=== PATIENT | male | born 1940 | race Caucasian/White ===

== ENCOUNTER → 2016-11-24 | Outpatient (CLI) | payer MEDICARE ==
--- NOTE | 2016-11-24 08:33 | US ---
EXAMINATION TYPE: US duplex aorta DATE OF EXAM: 11/24/2016 7:56 AM COMPARISON: NONE CLINICAL HISTORY: 76-year-old male AAA TECHNIQUE: Multiple sonographic images of the abdominal aorta are obtained. FINDINGS: TECHNOLOGIST NOTES: Technical limitations due to large amount of overlying bowel. Abdominal Aorta: Proximal: 2.9 x 3.2cm Mid: 2.2 x 2.7cm Distal: 3.2 x 3.1cm Right common iliac: 1.4 x 1.4cm Left common iliac: 1.4 x 1.3cm (Previous measurements: Prox: 2.5 x 2.4 x 2.5 cm. Mid: 2.3 x 2.4 x 2.5 cm. Distal: 3.2 x 3.1 x 3.1 cm. Common iliacs: 1.6 and 1.7 cm, right and left, respectively. ) IMPRESSION: 1. 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 The mid abdominal aorta is also measured ectatic at 2.7 cm. 2. The previous ectasia of the common iliac arteries is not appreciated on the current exam. Normal Values: 2.5cm upper limits of normal at upper portion 1.5cm upper limits of normal at iliac More than 2.5cm is ectatic and 3.0cm+ is aneurysmal. Abdominal Aortic Aneurysms: 3.0-3.9cm diameter: annual US surveillance recommended 4.0-4.9cm diameter: 6 month US surveillance recommended 5.0 +cm: recommendation for elective aneurysm repair in appropriate surgical candidate
== END | disposition home or self-care (01) ==
LOC: RADUSWWP 07:27
PROVIDERS: ATTEND Family Medicine
DX: I71.4 Abdominal aortic aneurysm, without rupture (principal)
CPT/HCPCS: 93979

== ENCOUNTER 2016-12-16 11:16 | Emergency (ER) | payer MEDICARE ==
[2016-12-16 11:44] LABS: Glucose,Whole Blood 97 mg/dL (75-99)
[2016-12-16] MEDS ORDERED: SODIUM CHLORIDE 0.9% 1,000 ML IV STA (11:47)
--- NOTE | 2016-12-16 11:48 | ED ---
General Adult HPI - General Chief complaint: Dizziness Stated complaint: VERTIGO POSS MINI STROKE Time Seen by Provider: 12/16/16 11:29 Source: patient, RN notes reviewed, old records reviewed Mode of arrival: wheelchair Limitations: no limitations - History of Present Illness Initial comments: This is a 76-year-old male ER with multiple nonspecific complaints. Patient doesn't from prior history of TIA with a few other comorbid conditions, patient states he does live alone and does feel anxious at times. He states he woke up this morning and an episode of blurry vision. Patient states he did eat and cataract for a while and had another episode of blurry vision, just for things were Floating in His Vision past. No Headache Chest Pain Stress of Breath or Abdominal Pain, Patient Is Not Taking Any Medications, He Has a V. fib in His Upper Neck for Which He Has Been Taking. Otherwise Patient Has No Focal Neurological Deficit No Weakness Normal Strength or Sensation Issues - Related Data Home Medications Medication Instructions Recorded Confirmed Atorvastatin [Lipitor] 40 mg PO DAILY 04/16/14 12/16/16 Dabigatran [Pradaxa] 150 mg PO BID 04/16/14 12/16/16 Levothyroxine Sodium [Synthroid] 50 mcg PO DAILY 04/16/14 12/16/16 Propafenone [Rythmol] 150 mg PO TID 04/16/14 12/16/16 busPIRone HCL [Buspar] 15 mg PO BID 04/16/14 12/16/16 buPROPion HCL [Wellbutrin SR] 100 mg PO BID 12/09/15 12/16/16 Fish Oil/Dha/Epa [Fish Oil 1,200 700 mg PO BID 12/16/16 12/16/16 mg Fish Oil] Allergies Allergy/AdvReac Type Severity Reaction Status Date / Time peanut Allergy Anaphylaxis Verified 12/16/16 11:26 Review of Systems ROS Statement: Those systems with pertinent positive or pertinent negative responses have been documented in the HPI. ROS Other: All systems not noted in ROS Statement are negative. Past Medical History Past Medical History: Atrial Fibrillation, CVA/TIA, Hyperlipidemia, Sleep Apnea/ CPAP/BIPAP, Thyroid Disorder Additional Past Medical History / Comment(s): 12-09-15 ADMITTED WITH C/O CHEST PAIN, CLINICAL IMPRESSION WAS UNSTABLE ANGINA. OTHE PAST HX INCLUDES: sleep apnea, PAST AFIB/FLUTTER HAD CARDIAC ABLATION FOR THIS. ALSO FOUND TO HAVE SICK SINUS SYNDROME,SYMPTOMATIC SINUS BRADYCARDIA AND HAD DUAL CHAMBERED PAEMEKER PLACED 2014, OSTEOPOROSIS.PER PAST MED RECORD MVP. History of Any Multi-Drug Resistant Organisms: None Reported Past Surgical History: Adenoidectomy, Heart Catheterization, Pacemaker, Tonsillectomy Additional Past Surgical History / Comment(s): left eye, EP STUDY cardiac ablation, PACEMAKER, HEART CATHS X3, HEMORROIDECTOMY, SX FOR SLEEP APNEA, MOLE REMOVED LT LEG(BENIGN) Past Anesthesia/Blood Transfusion Reactions: No Reported Reaction Type of Cardiac Device: Permanent Pacemaker Device Placement Date:: 2013 Past Psychological History: Anxiety, Depression Smoking Status: Former smoker Past Alcohol Use History: Rare Additional Past Alcohol Use History / Comment(s): SMOKED X7 YEARS 2-3 PPD QUIT 1968 Past Drug Use History: None Reported - Past Family History Sister(s) Family Medical History: Cancer Additional Family Medical History / Comment(s): BREAST CANCER Father Additional Family Medical History / Comment(s): stomach aneurysm General Exam - General Exam Comments Initial Comments: NIH of 0 Limitations: no limitations General appearance: alert, in no apparent distress Head exam: Present: atraumatic, normocephalic, normal inspection Eye exam: Present: normal appearance, PERRL, EOMI. Absent: scleral icterus, conjunctival injection, periorbital swelling ENT exam: Present: normal exam, mucous membranes moist Neck exam: Present: normal inspection. Absent: tenderness, meningismus, lymphadenopathy Respiratory exam: Present: normal lung sounds bilaterally. Absent: respiratory distress, wheezes, rales, rhonchi, stridor Cardiovascular Exam: Present: regular rate, normal rhythm, normal heart sounds. Absent: systolic murmur, diastolic murmur, rubs, gallop, clicks GI/Abdominal exam: Present: soft, normal bowel sounds. Absent: distended, tenderness, guarding, rebound, rigid Extremities exam: Present: normal inspection, full ROM, normal capillary refill. Absent: tenderness, pedal edema, joint swelling, calf tenderness Back exam: Present: normal inspection Neurological exam: Present: alert, oriented X3, CN II-XII intact Psychiatric exam: Present: normal affect, normal mood Skin exam: Present: warm, dry, intact, normal color. Absent: rash Course Vital Signs 12/16/16 11:20 Temperature 98.3 F Pulse Rate 64 Respiratory 16 Rate Blood Pressure 130/67 O2 Sat by Pulse 98 Oximetry - Reevaluation(s) Reevaluation #1: 12/16/16 12:41 Patient is without neurological findings complaint, no blurry vision EKG Findings - EKG Comments: EKG Findings:: EKG shows normal sinus rhythm rate of 60, ND 136, QRS 94, QTc 456 Medical Decision Making - Medical Decision Making 76 male ER for evaluation. Patient here for evaluation of blurry vision, patient episode of blurry vision after waking up this morning, does admit to increased anxiety, patient does suffer from anxiety and depression. At this point patient has no neurological complaints no neurological focal findings, patient can be discharged home - Lab Data Result diagrams: 12/16/16 12:05 Lab Results 12/16/16 12/16/16 Range/Units 11:42 12:05 WBC 5.6 (3.8-10.6) k/uL RBC 4.61 (4.30-5.90) m/uL Hgb 14.6 (13.0-17.5) gm/dL Hct 44.4 (39.0-53.0) % MCV 96.3 (80.0-100.0) fL MCH 31.7 (25.0-35.0) pg MCHC 32.9 (31.0-37.0) g/dL RDW 12.2 (11.5-15.5) % Plt Count 255 (150-450) k/uL Neutrophils % 57 % Lymphocytes % 27 % Monocytes % 9 % Eosinophils % 2 % Basophils % 1 % Neutrophils # 3.2 (1.3-7.7) k/uL Lymphocytes # 1.5 (1.0-4.8) k/uL Monocytes # 0.5 (0-1.0) k/uL Eosinophils # 0.1 (0-0.7) k/uL Basophils # 0.0 (0-0.2) k/uL POC Glucose (mg/dL) 97 (75-99) mg/dL POC Glu Standards Analyst ID Gm [email or web address] - Radiology Data Radiology results: report reviewed (CT brain negative for acute disease), image reviewed Disposition Clinical Impression: Dehydration, Anxiety, Obesity, TIA (transient ischemic attack) Disposition: HOME SELF-CARE Condition: Good Referrals: Marita Rick MD [Primary Care Provider] - 1-2 days
[2016-12-16 12:24] LABS: Basophils % (A) 1 %; CH 32.4; CHCM 33.8; Eosinophils # (A) 0.1 k/uL (0-0.7); Eosinophils % (A) 2 %; HCT 44.4 % (39.0-53.0); HDW 2.31; HGB 14.6 gm/dL (13.0-17.5); Luc # (Auto) 0.25; Luc % (Auto) 4; Lymphocytes # (A) 1.5 k/uL (1.0-4.8); Lymphocytes % (A) 27 %; MCH 31.7 pg (25.0-35.0); MCHC 32.9 g/dL (31.0-37.0); MCV 96.3 fL (80.0-100.0); Mean Platelet Volume 7.6; Monocytes # (A) 0.5 k/uL (0-1.0); Monocytes % (A) 9 %; Neutrophils # (A) 3.2 k/uL (1.3-7.7); Neutrophils % (A) 57 %; RBC 4.61 m/uL (4.30-5.90); RDW 12.2 % (11.5-15.5); WBC 5.6 k/uL (3.8-10.6); WBC (Perox) 5.71
[2016-12-16 12:33] LABS: ALT 32 U/L (21-72); AST 31 U/L (17-59); Alkaline Phosphatase 106 U/L (38-126); Anion Gap 13 mmol/L; Blood Urea Nitrogen 18 mg/dL (9-20); Calcium 8.8 mg/dL (8.4-10.2); Carbon Dioxide 22 mmol/L (22-30); Chloride 110 mmol/L (98-107); Glucose 101 mg/dL (74-99); Magnesium 2.1 mg/dL (1.6-2.3); Non-African American GFR(MDRD) >60 (>60 ml/min/1.73 sqM); Phosphorous 3.1 mg/dL (2.5-4.5); Potassium 4.3 mmol/L (3.5-5.1); Sodium 145 mmol/L (137-145); Total Bilirubin 1.2 mg/dL (0.2-1.3); Total Protein 6.6 g/dL (6.3-8.2)
[2016-12-16] MEDS ORDERED: LORazepam 2 MG/ML SYRINGE IV STA (12:36)
--- NOTE | 2016-12-16 12:45 | CT ---
EXAMINATION TYPE: CT brain wo con DATE OF EXAM: 12/16/2016 12:36 PM COMPARISON: 01/01/2016 HISTORY: Patient complains of multiple visual disturbances. CT DLP: 815.[address] of the brain was performed. The ventricles, basal cisterns and sulci overlying the cerebral convexities demonstrate mild enlargem ent. Bifrontal atrophy again noted. There is no evidence for intracranial hemorrhage or sulcal effacement. There is decreased attenuation about the periventricular white matter and deep white matter of both c erebral hemispheres, compatible with chronic small vessel ischemia. Differential diagnosis does inclu de demyelination. No mass effects are seen.No midline shift. Osseous calvarium is intact. If symptoms persist consider MRI. IMPRESSION: 1. Age related atrophic and chronic small vessel ischemic change without acute intracranial process s een at this time.
[2016-12-16 12:55] LABS: Creatine Kinase 96 U/L (55-170)
[2016-12-16 13:09] LABS: Troponin I <0.012 ng/mL (0.000-0.034)
[2016-12-16 13:47] VITALS: BP 155/72; PULSE 54; RESP 18; TEMP 97.8
== END 2016-12-16 13:51 | disposition home or self-care (01) ==
LOC: EC 11:16
DX: G45.9 Transient cerebral ischemic attack, unspecified (principal); E86.0 Dehydration; E66.9 Obesity, unspecified; F41.9 Anxiety disorder, unspecified; H53.8 Other visual disturbances; I48.91 Unspecified atrial fibrillation; E78.5 Hyperlipidemia, unspecified; E07.9 Disorder of thyroid, unspecified; F32.9 Major depressive disorder, single episode, unspecified; G47.30 Sleep apnea, unspecified; Z86.73 Personal history of transient ischemic attack (TIA), and cerebral infarction without residual deficits; Z87.891 Personal history of nicotine dependence; Z79.899 Other long term (current) drug therapy; Z91.010 Allergy to peanuts
CPT/HCPCS: 36415; 93005; 80053; 82550; 82553; 83735; 84100; 84484; 85025; 70450; 99284; 96374; 96361; J2060

== ENCOUNTER 2017-01-20 16:47 | Inpatient (IN) | payer MEDICARE ==
[2017-01-20] MEDS ORDERED: SODIUM CHLORIDE 0.9% 1,000 ML IV STA (16:58)
[2017-01-20 17:23] LABS: Basophils % (A) 1 %; CH 32.5; Eosinophils % (A) 1 %; HCT 47.3 % (39.0-53.0); HDW 2.23; HGB 15.5 gm/dL (13.0-17.5); Luc # (Auto) 0.23; Luc % (Auto) 4; Lymphocytes # (A) 0.7 k/uL (1.0-4.8); Lymphocytes % (A) 13 %; MCH 31.4 pg (25.0-35.0); MCHC 32.7 g/dL (31.0-37.0); MCV 96.1 fL (80.0-100.0); Mean Platelet Volume 7.9; Monocytes # (A) 0.9 k/uL (0-1.0); Monocytes % (A) 17 %; Neutrophils # (A) 3.3 k/uL (1.3-7.7); Neutrophils % (A) 64 %; RBC 4.92 m/uL (4.30-5.90); WBC 5.1 k/uL (3.8-10.6); WBC (Perox) 4.79
[2017-01-20 17:26] LABS: ALT 32 U/L (21-72); AST 41 U/L (17-59); Alkaline Phosphatase 107 U/L (38-126); Anion Gap 12 mmol/L; Blood Urea Nitrogen 15 mg/dL (9-20); Calcium 8.8 mg/dL (8.4-10.2); Carbon Dioxide 22 mmol/L (22-30); Chloride 106 mmol/L (98-107); Glucose 115 mg/dL (74-99); Magnesium 1.9 mg/dL (1.6-2.3); Non-African American GFR(MDRD) 54 (>60 ml/min/1.73 sqM); Potassium 4.3 mmol/L (3.5-5.1); Sodium 140 mmol/L (137-145); Total Bilirubin 1.4 mg/dL (0.2-1.3); Total Protein 6.8 g/dL (6.3-8.2)
[2017-01-20 17:28] LABS: INR 1.2 (<1.1); Partial Thromboplastin Time 33.9 sec (22.0-30.0); Prothrombin Time 11.9 sec (9.0-12.0)
--- NOTE | 2017-01-20 17:34 | CT ---
EXAMINATION TYPE: CT brain wo con DATE OF EXAM: 01/20/2017 5:28 PM COMPARISON: 12/16/2016 HISTORY: PT STATES OF FALL TODAY AND SLURRED SPEECH. CT DLP: 1174 mGycm Automated exposure control for dose reduction was used. FINDINGS: There is cerebral cortical atrophy. There is no mass effect nor midline shift. There is no sign of in tracranial hemorrhage. There is minimal mucosal thickening in the left maxillary sinus. Calvarium is intact. IMPRESSION: Cerebral atrophy. Small mucus retention cyst left maxillary sinus. No adverse change compared to old exam.
--- NOTE | 2017-01-20 17:35 | ED ---
Neuro HPI - General Chief Complaint: Neuro Symptoms/Deficit Stated Complaint: TIA symptoms Time Seen by Provider: 01/20/17 16:47 Source: patient, EMS, RN notes reviewed Mode of arrival: EMS Limitations: no limitations - History of Present Illness Is the patient presenting with stroke symptoms?: Yes Initial Comments: This is a 76-year-old male history of TIAs who states he had the onset at 9:00 is when of some slurred speech and generalized weakness. He states that later on they could not even walk across the floor to get the phone. He denies any focal weakness however. Denies any headache blurry vision numbness or tingling. He denies any fevers chills sweats. Denies any overt pain at this time. - Related Data Home Medications: Home Medications Medication Instructions Recorded Confirmed Atorvastatin [Lipitor] 40 mg PO HS 04/16/14 01/20/17 Dabigatran [Pradaxa] 150 mg PO BID 04/16/14 01/20/17 Levothyroxine Sodium [Synthroid] 50 mcg PO DAILY 04/16/14 01/20/17 Propafenone [Rythmol] 150 mg PO TID 04/16/14 01/20/17 busPIRone HCL [Buspar] 15 mg PO BID 04/16/14 01/20/17 Albuterol Inhaler [Ventolin Hfa 1 - 2 puff INHALATION RT-Q6H PRN 12/16/16 Inhaler] Fish Oil/Dha/Epa [Fish Oil 1,200 1 cap PO BID 12/16/16 01/20/17 mg Fish Oil] Diltiazem Cd [Cardizem Cd] 180 mg PO DAILY 01/20/17 01/20/17 buPROPion [Wellbutrin] 100 mg PO BID 01/20/17 01/20/17 Allergies/Adverse Reactions: Allergies Allergy/AdvReac Type Severity Reaction Status Date / Time peanut Allergy Anaphylaxis Verified 01/20/17 17:57 Review of Systems ROS Statement: Those systems with pertinent positive or pertinent negative responses have been documented in the HPI. ROS Other: All systems not noted in ROS Statement are negative. General Exam - General Exam Comments Initial Comments: Is a well-developed well-nourished awake alert oriented 3 male Limitations: no limitations General appearance: alert, in no apparent distress Head exam: Present: atraumatic, normocephalic, normal inspection Eye exam: Present: normal appearance, PERRL, EOMI. Absent: scleral icterus, conjunctival injection, periorbital swelling ENT exam: Present: normal exam, mucous membranes moist Neck exam: Present: normal inspection. Absent: tenderness, meningismus, lymphadenopathy Respiratory exam: Present: normal lung sounds bilaterally. Absent: respiratory distress, wheezes, rales, rhonchi, stridor Cardiovascular Exam: Present: regular rate, normal rhythm, normal heart sounds. Absent: systolic murmur, diastolic murmur, rubs, gallop, clicks GI/Abdominal exam: Present: soft, normal bowel sounds. Absent: distended, tenderness, guarding, rebound, rigid Extremities exam: Present: normal inspection, full ROM, normal capillary refill. Absent: tenderness, pedal edema, joint swelling, calf tenderness Back exam: Present: normal inspection Neurological exam: Present: alert, oriented X3, CN II-XII intact Psychiatric exam: Present: normal affect, normal mood Skin exam: Present: warm, dry, intact, normal color. Absent: rash Stroke MDM - Lab Data Result diagrams: 01/20/17 16:50 01/20/17 16:50 Lab Results 01/20/17 01/20/17 01/20/17 Range/Units 16:50 16:50 16:50 WBC 5.1 (3.8-10.6) k/uL RBC 4.92 (4.30-5.90) m/uL Hgb 15.5 (13.0-17.5) gm/dL Hct 47.3 (39.0-53.0) % MCV 96.1 (80.0-100.0) fL MCH 31.4 (25.0-35.0) pg MCHC 32.7 (31.0-37.0) g/dL RDW 12.0 (11.5-15.5) % Plt Count 190 (150-450) k/uL Neutrophils % 64 % Lymphocytes % 13 % Monocytes % 17 % Eosinophils % 1 % Basophils % 1 % Neutrophils # 3.3 (1.3-7.7) k/uL Lymphocytes # 0.7 L (1.0-4.8) k/uL Monocytes # 0.9 (0-1.0) k/uL Eosinophils # 0.0 (0-0.7) k/uL Basophils # 0.0 (0-0.2) k/uL Manual Slide Review Performed RBC Morphology Normal PT (9.0-12.0) sec INR (<1.1) APTT (22.0-30.0) sec Sodium 140 (137-145) mmol/L Potassium 4.3 (3.5-5.1) mmol/L Chloride 106 (98-107) mmol/L Carbon Dioxide 22 (22-30) mmol/L Anion Gap 12 mmol/L BUN 15 (9-20) mg/dL Creatinine 1.30 H (0.66-1.25) mg/dL Est GFR (MDRD) Af Amer >60 (>60 ml/min/1.73 sqM) Est GFR (MDRD) Non-Af 54 (>60 ml/min/1.73 sqM) Glucose 115 H (74-99) mg/dL Calcium 8.8 (8.4-10.2) mg/dL Magnesium 1.9 (1.6-2.3) mg/dL Total Bilirubin 1.4 H (0.2-1.3) mg/dL AST 41 (17-59) U/L ALT 32 (21-72) U/L Alkaline Phosphatase 107 (38-126) U/L Total Creatine Kinase 259 H (55-170) U/L CK-MB (CK-2) 0.7 (0.0-2.4) ng/mL CK-MB (CK-2) Rel Index 0.3 Troponin I <0.012 (0.000-0.034) ng/mL NT-Pro-B Natriuret Pep pg/mL Total Protein 6.8 (6.3-8.2) g/dL Albumin 3.8 (3.5-5.0) g/dL TSH 0.662 (0.465-4.680) mIU/L Urine Color Urine Appearance (Clear) Urine pH (5.0-8.0) Ur Specific [place] (1.001-1.035) Urine Protein (Negative) Urine Glucose (UA) (Negative) Urine Ketones (Negative) Urine Blood (Negative) Urine Nitrate (Negative) Urine Bilirubin (Negative) Urine Urobilinogen (<2.0) mg/dL Ur Leukocyte Esterase (Negative) Urine RBC (0-5) /hpf Urine WBC (0-5) /hpf Ur Squamous Epith Cells (0-4) /hpf Urine Mucus (None) /hpf 01/20/17 01/20/17 01/20/17 Range/Units 16:50 16:50 18:21 WBC (3.8-10.6) k/uL RBC (4.30-5.90) m/uL Hgb (13.0-17.5) gm/dL Hct (39.0-53.0) % MCV (80.0-100.0) fL MCH (25.0-35.0) pg MCHC (31.0-37.0) g/dL RDW (11.5-15.5) % Plt Count (150-450) k/uL Neutrophils % % Lymphocytes % % Monocytes % % Eosinophils % % Basophils % % Neutrophils # (1.3-7.7) k/uL Lymphocytes # (1.0-4.8) k/uL Monocytes # (0-1.0) k/uL Eosinophils # (0-0.7) k/uL Basophils # (0-0.2) k/uL Manual Slide Review RBC Morphology PT 11.9 (9.0-12.0) sec INR 1.2 (<1.1) APTT 33.9 H (22.0-30.0) sec Sodium (137-145) mmol/L Potassium (3.5-5.1) mmol/L Chloride (98-107) mmol/L Carbon Dioxide (22-30) mmol/L Anion Gap mmol/L BUN (9-20) mg/dL Creatinine (0.66-1.25) mg/dL Est GFR (MDRD) Af Amer (>60 ml/min/1.73 sqM) Est GFR (MDRD) Non-Af (>60 ml/min/1.73 sqM) Glucose (74-99) mg/dL Calcium (8.4-10.2) mg/dL Magnesium (1.6-2.3) mg/dL Total Bilirubin (0.2-1.3) mg/dL AST (17-59) U/L ALT (21-72) U/L Alkaline Phosphatase (38-126) U/L Total Creatine Kinase (55-170) U/L CK-MB (CK-2) (0.0-2.4) ng/mL CK-MB (CK-2) Rel Index Troponin I (0.000-0.034) ng/mL NT-Pro-B Natriuret Pep 412 pg/mL Total Protein (6.3-8.2) g/dL Albumin (3.5-5.0) g/dL TSH (0.465-4.680) mIU/L Urine Color Yellow Urine Appearance Clear (Clear) Urine pH 5.5 (5.0-8.0) Ur Specific [place] 1.009 (1.001-1.035) Urine Protein Negative (Negative) Urine Glucose (UA) Negative (Negative) Urine Ketones Negative (Negative) Urine Blood Small H (Negative) Urine Nitrate Negative (Negative) Urine Bilirubin Negative (Negative) Urine Urobilinogen <2.0 (<2.0) mg/dL Ur Leukocyte Esterase Negative (Negative) Urine RBC 5 (0-5) /hpf Urine WBC 1 (0-5) /hpf Ur Squamous Epith Cells <1 (0-4) /hpf Urine Mucus Rare H (None) /hpf - NIH Stroke Scale 1a. Level of Consciousness: (0) alert 1b. LOC Questions: (0) answers correctly 1c. LOC Commands: (0) performs tasks correctly 2. Best Gaze: (0) normal 3. Visual: (0) no visual loss 4. Facial Palsy: (0) normal symmetrical movement 5a. Motor Arm Left: (0) no drift 5b. Motor Arm Right: (0) no drift 6a. Motor Leg Left: (0) no drift 6b. Motor Leg Right: (0) no drift 7. Limb Ataxia: (0) absent 8. Sensory: (0) normal 9. Best Language: (0) no aphasia 10. Dysarthria: (1) mild/moderate dysarthria 11. Extinction/Inattention: (0) no abnormality - Thrombolytic Inclusion/Exclusion Thrombolytic Exclusion Criteria: Symptom Onset > 3 Hours - Medical Decision Making The patient did have noted improvement with no more slurred speech. I did discuss the case with Dr Kraus. the patient will be admitted with evaluation by neurology. I - EKG Data -: EKG Interpreted by Me EKG shows normal: sinus rhythm (Sinus rhythm rate 65. Interval 156 QRS duration 92 QT/QTC of 440/[address] configuration artifact is present.) Past Medical History Past Medical History: Atrial Fibrillation, CVA/TIA, Hyperlipidemia, Sleep Apnea/ CPAP/BIPAP, Thyroid Disorder Additional Past Medical History / Comment(s): 12-09-15 ADMITTED WITH C/O CHEST PAIN, CLINICAL IMPRESSION WAS UNSTABLE ANGINA. OTHE PAST HX INCLUDES: sleep apnea, PAST AFIB/FLUTTER HAD CARDIAC ABLATION FOR THIS. ALSO FOUND TO HAVE SICK SINUS SYNDROME,SYMPTOMATIC SINUS BRADYCARDIA AND HAD DUAL CHAMBERED PAEMEKER PLACED 2013, OSTEOPOROSIS.PER PAST MED RECORD MVP. History of Any Multi-Drug Resistant Organisms: None Reported Past Surgical History: Adenoidectomy, Heart Catheterization, Pacemaker, Tonsillectomy Additional Past Surgical History / Comment(s): left eye, EP STUDY cardiac ablation, PACEMAKER, HEART CATHS X3, HEMORROIDECTOMY, SX FOR SLEEP APNEA, MOLE REMOVED LT LEG(BENIGN) Past Anesthesia/Blood Transfusion Reactions: No Reported Reaction Type of Cardiac Device: Permanent Pacemaker Device Placement Date:: 2013 Past Psychological History: Anxiety, Depression Smoking Status: Former smoker Past Alcohol Use History: Rare Additional Past Alcohol Use History / Comment(s): SMOKED X7 YEARS 2-3 PPD QUIT 1967 Past Drug Use History: None Reported - Past Family History Sister(s) Family Medical History: Cancer Additional Family Medical History / Comment(s): BREAST CANCER Father Additional Family Medical History / Comment(s): stomach aneurysm Course Vital Signs 01/20/17 01/20/17 16:48 18:18 Temperature 98.8 F 99.1 F Pulse Rate 71 65 Respiratory 16 16 Rate Blood Pressure 124/70 152/70 O2 Sat by Pulse 97 95 Oximetry - Reevaluation(s) Reevaluation #1: 01/20/17 19:11 After return from CAT scan patient devastated no overt change she still has some slight slurring of his speech there was a question whether he had some flattening of the right nasolabial fold Critical Care Time Critical Care Time: Yes Critical Care Time: The patient was reevaluated several occasions of critical care time 33 minutes. This includes initial monitoring of the EMS call discussed with paramedics history physical lab and x-rays of the patient evaluation of the same. Reevaluation patient several occasions. Documentation discussed with the admitting physician and orders. Disposition Clinical Impression: Transient cerebral ischemia Disposition: ADMITTED IP TO THIS HOSP Condition: Stable
[2017-01-20 17:37] LABS: Creatine Kinase 259 U/L (55-170)
[2017-01-20 17:38] LABS: Manual Review Performed; RBC Morphology Normal
[2017-01-20 17:50] LABS: Creatine Kinase MB 0.7 ng/mL (0.0-2.4); Troponin I <0.012 ng/mL (0.000-0.034)
--- NOTE | 2017-01-20 18:22 | XR ---
EXAMINATION TYPE: XR chest 2V DATE OF EXAM: 01/20/2017 6:09 PM COMPARISON: 05/15/2016 HISTORY: Weakness TECHNIQUE: Frontal and lateral views of the chest are obtained. FINDINGS: There is no heart failure nor confluent pneumonic infiltrate. There are no hilar masses. T here is a left axillary pacemaker with the lead tips in the right ventricle. There are chest leads. T here is no definite pleural effusion. IMPRESSION: No active cardiopulmonary disease. No change compared to old exam.
[2017-01-20 18:32] LABS: Appearance,Urine Clear (Clear); Bilirubin,Urine Negative (Negative); Glucose,Urine (UA) Negative (Negative); Ketones,Urine Negative (Negative); Leukocyte Esterase,Urine Negative (Negative); Mucus,Urine Rare /hpf; Nitrite,Urine Negative (Negative); PH, Urine 5.5 (5.0-8.0); Particle Count 3772; Protein,Urine Negative (Negative); RBC,Urine 5 /hpf (0-5); Specific Gravity,Urine 1.009 (1.001-1.035); Squamous Epithelial Cell,Urine <1 /hpf (0-4); UA Billing (MACRO vs. MICRO) MICRO; Urobilinogen,Urine <2.0 mg/dL (<2.0); WBC,Urine 1 /hpf (0-5)
[2017-01-20] MEDS ORDERED: ALBUTEROL NEBULIZED 2.5 MG/3 ML INHALATION PRN (19:20)
[2017-01-20] MEDS ORDERED: NON-FORMULARY DRUG (Fish Oil/Dha/Epa [Fish Oil 1,200 Mg Fish Oil] 1 CAP) PO SCH (21:00)
[2017-01-20 21:06] VITALS: BMI 38.0
[2017-01-20] MEDS: ATORVASTATIN 40 MG TAB PO SCH (21:50)
[2017-01-20] MEDS: buPROPion 100 MG TAB PO SCH (21:50)
[2017-01-20] MEDS: SODIUM CHLORIDE 0.9% 1,000 ML IV SCH (21:50)
[2017-01-20] MEDS: DABIGATRAN 150 MG CAP PO SCH (21:50)
[2017-01-20] MEDS: busPIRone HCl 5 MG TAB PO SCH (21:51)
[2017-01-20] MEDS: PROPAFENONE 150 MG TAB PO SCH (21:51)
[2017-01-21] MEDS ORDERED: DILTIAZEM CD 180 MG CAP.ER.24H PO SCH (09:00)
--- NOTE | 2017-01-21 09:19 | US ---
EXAMINATION TYPE: US carotid duplex BILAT DATE OF EXAM: 01/21/2017 9:00 AM COMPARISON: NONE CLINICAL HISTORY: Stenosis. Episode of slurred speech, dizziness EXAM MEASUREMENTS: RIGHT: Peak Systolic Velocity (PSV) cm/sec ----- Right CCA: 77.6 ----- Right ICA: 74.6 ----- Right ECA: 178.7 ICA/CCA ratio: 1.0 RIGHT: End Diastole cm/sec ----- Right CCA: 14.7 ----- Right ICA: 19.7 ----- Right ECA: 6.7 LEFT: Peak Systolic Velocity (PSV) cm/sec ----- Left CCA: 97.7 ----- Left ICA: 75.7 ----- Left ECA: 169.4 ICA/CCA ratio: 0.8 LEFT: End Diastole cm/sec ----- Left CCA: 18.4 ----- Left ICA: 21.9 ----- Left ECA: 11.4 VERTEBRALS (direction of flow): Right Vertebral: Antegrade Left Vertebral: Antegrade Findings: Elevated velocities bilateral ECA's, otherwise no evidence of significant stenosis intimal thickening and atherosclerotic plaque noted. IMPRESSION: 1. No significant hemodynamic stenosis. 2. Intimal thickening and atherosclerotic plaque.
[2017-01-21] MEDS: DABIGATRAN 150 MG CAP PO SCH ×2 (09:23→21:33)
[2017-01-21] MEDS: busPIRone HCl 5 MG TAB PO SCH ×2 (09:23→21:33)
[2017-01-21] MEDS: buPROPion 100 MG TAB PO SCH ×2 (09:23→21:33)
[2017-01-21] MEDS: LEVOTHYROXINE 50 MCG TAB PO SCH (09:24)
[2017-01-21] MEDS: PROPAFENONE 150 MG TAB PO SCH ×3 (09:24→21:33)
[2017-01-21] MEDS: SODIUM CHLORIDE 0.9% 1,000 ML IV SCH (09:27)
--- NOTE | 2017-01-21 11:24 | P.HPIM ---
History of Present Illness H&P Date: 01/21/17 Chief Complaint: Slurred speech generalized weakness 76-year-old male presented via the EMS system in which he activated on the day of admission to be evaluated for a sudden onset of slurred garbled speech with generalized weakness. Patient stated that he felt so weak yesterday he had to crawl from his bed to get to a phone he could not get himself up. Patient stated that he knew his speech sounded garble. 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 go to the 3 times a week and under supervision lift weights" patient stated the sudden onset of generalized weakness with inability to ambulate came on suddenly became progressive did not resolve became concerned activated the EMS system patient states when he arrived in the emergency room the symptoms showed some improvement there was no further episodes of slurred speech CAT scan in the emergency room showed no acute changes patients being seen this morning there is no slurred speech questionable slight facial droop on the right speech is clear patient is able to articulate thoughts stated he had a similar episode in May 2016 involving weakness in the lower extremities patient stated the episode resolved and he was told he had a TIA has a past medical history significant for morbid obesity, hyperlipidemia hypothyroid chronic atrial fibrillation with sick sinus syndrome status post pacemaker implant with obstructive sleep apnea on CPAP therapy at home Review of Systems Essentially unremarkable except as mentioned in the present illness Past Medical History Past Medical History: Atrial Fibrillation, CVA/TIA, Hyperlipidemia, Sleep Apnea/ CPAP/BIPAP, Thyroid Disorder Additional Past Medical History / Comment(s): 12-09-15 ADMITTED WITH C/O CHEST PAIN, CLINICAL IMPRESSION WAS UNSTABLE ANGINA. OTHE PAST HX INCLUDES: sleep apnea, PAST AFIB/FLUTTER HAD CARDIAC ABLATION FOR THIS. ALSO FOUND TO HAVE SICK SINUS SYNDROME,SYMPTOMATIC SINUS BRADYCARDIA AND HAD DUAL CHAMBERED PAEMEKER PLACED 2013, OSTEOPOROSIS.PER PAST MED RECORD MVP. History of Any Multi-Drug Resistant Organisms: None Reported Past Surgical History: Adenoidectomy, Heart Catheterization, Pacemaker, Tonsillectomy Additional Past Surgical History / Comment(s): left eye, EP STUDY cardiac ablation, PACEMAKER, HEART CATHS X3, HEMORROIDECTOMY, SX FOR SLEEP APNEA, MOLE REMOVED LT LEG(BENIGN) Past Anesthesia/Blood Transfusion Reactions: No Reported Reaction Type of Cardiac Device: Permanent Pacemaker Device Placement Date:: 2013 Past Psychological History: Anxiety, Depression Smoking Status: Former smoker Past Alcohol Use History: Rare Additional Past Alcohol Use History / Comment(s): SMOKED X7 YEARS 2-3 PPD QUIT 1968 Past Drug Use History: None Reported - Past Family History Sister(s) Family Medical History: Cancer Additional Family Medical History / Comment(s): BREAST CANCER Father Additional Family Medical History / Comment(s): stomach aneurysm Medications and Allergies Home Medications Medication Instructions Recorded Confirmed Type Atorvastatin [Lipitor] 40 mg PO HS 04/16/14 01/20/17 History Dabigatran [Pradaxa] 150 mg PO BID 04/16/14 01/20/17 History Levothyroxine Sodium [Synthroid] 50 mcg PO DAILY 04/16/14 01/20/17 History Propafenone [Rythmol] 150 mg PO TID 04/16/14 01/20/17 History busPIRone HCL [Buspar] 15 mg PO BID 04/16/14 01/20/17 History Albuterol Inhaler [Ventolin Hfa 1 - 2 puff INHALATION RT-Q6H PRN 12/16/16 History Inhaler] Fish Oil/Dha/Epa [Fish Oil 1,200 1 cap PO BID 12/16/16 01/20/17 History mg Fish Oil] Diltiazem Cd [Cardizem Cd] 180 mg PO DAILY 01/20/17 01/20/17 History buPROPion [Wellbutrin] 100 mg PO BID 01/20/17 01/20/17 History Allergies Allergy/AdvReac Type Severity Reaction Status Date / Time peanut Allergy Anaphylaxis Verified 01/20/17 17:57 Physical Exam Vitals: Vital Signs Temp Pulse Resp BP Pulse Ox 01/21/17 09:29 97.7 F 64 18 134/65 94 L 01/21/17 03:00 97.1 F L 59 L 16 126/60 96 01/20/17 23:00 71 18 147/73 94 L 01/20/17 22:00 154/62 01/20/17 20:00 98.9 F 79 18 155/87 94 L 01/20/17 19:49 16 153/70 96 Intake and Output 01/20/17 01/21/17 01/21/17 22:59 06:59 14:59 Intake Total 260 Output Total 1200 Balance -1200 260 Intake: Oral 260 Output: Urine 1200 Other: # Voids 3 Weight 127.006 kg 127.2 kg GENERAL APPEARANCE: 76-year-old oriented 3 patient is alert, oriented, in no acute distress. Sitting up on edge of bed speech clear no expressive aphasia no slurred speech slight facial droop on the right VITAL SIGNS: Reviewed HEENT: Head is normocephalic and atraumatic. Pupils are equal and reactive. The nares are patent. Oropharynx is clear without lesions. NECK: Supple without lymphadenopathy. Traches midline. HEART: S1, S2. Regular rate and rhythm monitor sinus rate controlled denying chest pain LUNGS: No crackles or wheezes are heard. Adequate air entry bilaterally on room air no conversational dyspnea noted no cough noted ABDOMEN: Soft, nontender, nondistended with good bowel sounds. No peritoneal signs. No palpable organomegaly or masses. EXTREMITIES: Normal skin color and turgor. No cyanosis, rash, ulceration, clubbing or edema. Radial pedal pulses are 2/4 bilaterally. No pronator drift noted NEUROLOGICAL: No focal deficits. Strength and sensation are grossly intact. Results CBC & Chem 7: 01/20/17 16:50 01/20/17 16:50 Thrombosis Risk Factor Assmnt - Choose All That Apply Each Factor Represents 1 point: Obesity (BMI >25) Each Risk Factor Represents 2 Points: Age 61-74 years Thrombosis Risk Factor Assessment Total Risk Factor Score: 3 Thrombosis Risk Factor Assessment Level: Moderate Risk Assessment and Plan Plan: Impression Present on admission generalized weakness and inability to ambulate with slurred speech suspect due to a transient ischemic attack CAT scan of the brain no acute process Depressive disorder nonspecified Obesity BMI 38 History of obstructive sleep apnea on CPAP therapy at home Hyperlipidemia Hypothyroid on supplements paroxysmal atrial fibrillation on Pradaxa Echocardiogram left ventricular systolic function low normal EF 50-55% on echo done November 2015 carotid Dopplers bilaterally no significant hemodynamic stenosis noted History of prior TIA May 2016 generalized weakness Plan Await neurology eval pending Resume home meds as appropriate PT OT eval Repeat an echocardiogram Fall precautions DVT and GI prophylaxis Repeat labs in the morning Further recommendations pending The above dictated assessment and findings were discussed with dr jacinto Impression and the plan of care have been dictated as directed. Otilia Prado nurse practitioner acting as a scribe for dr jacinto
--- NOTE | 2017-01-21 14:26 | P.CRDCN ---
History of Present Illness Reason for Consult (text): Mr. Simmons is a 76-year-old gentleman who is seen for cardiac evaluation. This patient had an episode of slurred speech and generalized weakness. Patient did not have any headache or double vision or nausea or vomiting. Patient was so weak that she he could not even walk across the floor to get to the point patient denies any fever or chills. This patient has a history of paroxysmal atrial fibrillation and tachybradycardia syndrome status post permanent pacemaker patient is being maintained in normal sinus rhythm with status post ablation and medical therapy. Recent is otherwise moderately active physically. There is no definite prior history of myocardial infarction patient denies any history of angina. There is no history of congestive cardiac failure. Past Medical History Past Medical History: Atrial Fibrillation, CVA/TIA, Hyperlipidemia, Sleep Apnea/ CPAP/BIPAP, Thyroid Disorder Additional Past Medical History / Comment(s): 12-09-15 ADMITTED WITH C/O CHEST PAIN, CLINICAL IMPRESSION WAS UNSTABLE ANGINA. OTHE PAST HX INCLUDES: sleep apnea, PAST AFIB/FLUTTER HAD CARDIAC ABLATION FOR THIS. ALSO FOUND TO HAVE SICK SINUS SYNDROME,SYMPTOMATIC SINUS BRADYCARDIA AND HAD DUAL CHAMBERED PAEMEKER PLACED 2013, OSTEOPOROSIS.PER PAST MED RECORD MVP. History of Any Multi-Drug Resistant Organisms: None Reported Past Surgical History: Adenoidectomy, Heart Catheterization, Pacemaker, Tonsillectomy Additional Past Surgical History / Comment(s): left eye, EP STUDY cardiac ablation, PACEMAKER, HEART CATHS X3, HEMORROIDECTOMY, SX FOR SLEEP APNEA, MOLE REMOVED LT LEG(BENIGN) Past Anesthesia/Blood Transfusion Reactions: No Reported Reaction Type of Cardiac Device: Permanent Pacemaker Device Placement Date:: 2013 Past Psychological History: Anxiety, Depression Smoking Status: Former smoker Past Alcohol Use History: Rare Additional Past Alcohol Use History / Comment(s): SMOKED X7 YEARS 2-3 PPD QUIT 1967 Past Drug Use History: None Reported - Past Family History Sister(s) Family Medical History: Cancer Additional Family Medical History / Comment(s): BREAST CANCER Father Additional Family Medical History / Comment(s): stomach aneurysm Medications and Allergies Home Medications Medication Instructions Recorded Confirmed Type Atorvastatin [Lipitor] 40 mg PO HS 04/16/14 01/20/17 History Dabigatran [Pradaxa] 150 mg PO BID 04/16/14 01/20/17 History Levothyroxine Sodium [Synthroid] 50 mcg PO DAILY 04/16/14 01/20/17 History Propafenone [Rythmol] 150 mg PO TID 04/16/14 01/20/17 History busPIRone HCL [Buspar] 15 mg PO BID 04/16/14 01/20/17 History Albuterol Inhaler [Ventolin Hfa 1 - 2 puff INHALATION RT-Q6H PRN 12/16/16 History Inhaler] Fish Oil/Dha/Epa [Fish Oil 1,200 1 cap PO BID 12/16/16 01/20/17 History mg Fish Oil] Diltiazem Cd [Cardizem Cd] 180 mg PO DAILY 01/20/17 01/20/17 History buPROPion [Wellbutrin] 100 mg PO BID 01/20/17 01/20/17 History Allergies Allergy/AdvReac Type Severity Reaction Status Date / Time peanut Allergy Anaphylaxis Verified 01/20/17 17:57 Physical Exam Vitals: Vital Signs Temp Pulse Resp BP Pulse Ox 01/21/17 09:29 97.7 F 64 18 134/65 94 L 01/21/17 03:00 97.1 F L 59 L 16 126/60 96 01/20/17 23:00 71 18 147/73 94 L 01/20/17 22:00 154/62 01/20/17 20:00 98.9 F 79 18 155/87 94 L 01/20/17 19:49 16 153/70 96 Intake and Output 01/20/17 01/21/17 01/21/17 22:59 06:59 14:59 Intake Total 620 Output Total 1200 Balance -1200 620 Intake: Oral 620 Output: Urine 1200 Other: # Voids 3 Weight 127.006 kg 127.2 kg Patient is obesely built. HEENT examination is negative. Neck is supple there is no increase in jugular venous pressure both the carotid pulses are felt. There is no bruit. Lungs are clinically clear to auscultation and percussion. Heart. First and second heart sounds are normal. No significant murmurs are noted. Abdomen soft. No masses are felt. Extremities. No leg edema. Pedal pulses since are 2+. EKG shows normal sinus rhythm without any acute ischemic changes. Left SI reviewed. Troponin is normal. Results 01/20/17 16:50 01/20/17 16:50 Current Medications Generic Name Dose Route Start Last Admin Trade Name [place] PRN Reason Stop Dose Admin Albuterol Sulfate 2.5 mg 01/20/17 19:20 Ventolin Nebulized INHALATION RT-Q6H PRN Shortness Of Breath Atorvastatin Calcium 40 mg 01/20/17 21:00 01/20/17 21:50 Lipitor PO 40 mg HS EMILIE Administration Bupropion HCl 100 mg 01/20/17 21:00 01/21/17 09:23 Wellbutrin PO 100 mg BID EMILIE Administration Buspirone HCl 15 mg 01/20/17 21:00 01/21/17 09:23 Buspar PO 15 mg BID EMILIE Administration Dabigatran 150 mg 01/20/17 21:00 01/21/17 09:23 Pradaxa PO 150 mg BID EMILIE Administration Diltiazem HCl 180 mg 01/21/17 09:00 01/21/17 09:24 Cardizem Cd PO Not Given DAILY EMILIE Famotidine 20 mg 01/21/17 11:30 Pepcid PO BID EMILIE Sodium Chloride 1,000 mls @ 20 mls/hr 01/20/17 19:30 01/21/17 09:27 Saline 0.9% IV Not Given .Q24H EMILIE Levothyroxine Sodium 50 mcg 01/21/17 06:30 01/21/17 09:24 Synthroid PO 50 mcg DAILY@0630 EMILIE Administration Propafenone HCl 150 mg 01/20/17 22:00 01/21/17 09:24 Rythmol PO 150 mg TID EMILIE Administration Intake and Output 01/20/17 01/21/17 01/21/17 22:59 06:59 14:59 Intake Total 620 Output Total 1200 Balance -1200 620 Intake: Oral 620 Output: Urine 1200 Other: # Voids 3 Weight 127.006 kg 127.2 kg Assessment and Plan Plan: Patient history suggestive of possible TIA. Computed tomography scan is normal. Carotid duplex study is normal. We will discuss with Dr. Crenshaw IV add a baby aspirin once a day.
--- NOTE | 2017-01-21 14:56 | P.CNNES ---
History of Present Illness Consult date: 01/21/17 Reason for Consult: Patient with generalized weakness and TIA. History of Present Illness: This patient is a 76-year-old right-handed white male who apparently lives in his own home alone. He was at home and was talking on the telephone yesterday with his sister and apparently noticed that he was having some slurring of his speech. After completing the phone call he was going to his living room when he felt weak all over. He states both arms and both legs were feeling very heavy. He was unable to continue to ambulate but was able to get to a walker to go to his sofa. He states he tried to get up from the sofa but could not do so due to generalized weakness. He then attempted to stand and then apparently fell to the ground. He was able to crawl across to the phone where he once again noted slurring of his speech. This was very obvious to him. He was able to call 911 who are able to come to his home quickly and found him on the ground. He continued to show evidence of generalized weakness. Apparently there was slurring of his speech when EMS arrived. He was transported by EMS to the emergency room for further evaluation. He was seen in the ER by Dr. Chapman who evaluated him. He was out of the therapeutic window for TPA as onset of symptoms were greater than 3 hours. He was sent for a computed tomography scan of the brain which revealed cerebral atrophy with no evidence of acute stroke or hemorrhage. Patient also underwent carotid Doppler study which revealed no significant carotid artery stenosis. Patient states he has a long history of atrial fibrillation. He also has a pacemaker placement for sick sinus syndrome. This was done in 2013. He has been taking Pradaxa for long- term anticoagulation. He has been on Pradaxa for the past 2 years. Apparently the patient had a TIA episode in 2011 with left leg weakness. He has not had any other problems with recurrent TIA until today. The patient states he does follow with Dr. Becerra and Dr. Hinojosa in the cardiology clinic. His pacemaker is interrogated every 6 months. Apparently his pacemaker has been functioning very well and recently had it checked at the cardiology clinic. Patient states his speech is still somewhat slurred but improved from initial onset of symptoms. He continues to have some generalized weakness. The weakness also has improved since his admission to hospital. The patient is now admitted and neurology has been consulted for further evaluation and recommendations. Review of Systems Constitutional: Denies chills, Denies fever Eyes: denies blurred vision, denies pain Ears, nose, mouth and throat: Denies headache, Denies sore throat Cardiovascular: Denies chest pain, Denies shortness of breath Respiratory: Denies cough Gastrointestinal: Denies abdominal pain, Denies diarrhea, Denies nausea, Denies vomiting Musculoskeletal: Denies myalgias Integumentary: Denies pruritus, Denies rash Neurological: Reports aphasia, Reports gait dysfunction, Denies numbness, Denies weakness Psychiatric: Denies anxiety, Denies depression Endocrine: Denies fatigue, Denies weight change Past Medical History Past Medical History: Atrial Fibrillation, CVA/TIA, Hyperlipidemia, Sleep Apnea/ CPAP/BIPAP, Thyroid Disorder Additional Past Medical History / Comment(s): 12-09-15 ADMITTED WITH C/O CHEST PAIN, CLINICAL IMPRESSION WAS UNSTABLE ANGINA. OTHE PAST HX INCLUDES: sleep apnea, PAST AFIB/FLUTTER HAD CARDIAC ABLATION FOR THIS. ALSO FOUND TO HAVE SICK SINUS SYNDROME,SYMPTOMATIC SINUS BRADYCARDIA AND HAD DUAL CHAMBERED PAEMEKER PLACED 2013, OSTEOPOROSIS.PER PAST MED RECORD MVP. History of Any Multi-Drug Resistant Organisms: None Reported Past Surgical History: Adenoidectomy, Heart Catheterization, Pacemaker, Tonsillectomy Additional Past Surgical History / Comment(s): left eye, EP STUDY cardiac ablation, PACEMAKER, HEART CATHS X3, HEMORROIDECTOMY, SX FOR SLEEP APNEA, MOLE REMOVED LT LEG(BENIGN) Past Anesthesia/Blood Transfusion Reactions: No Reported Reaction Type of Cardiac Device: Permanent Pacemaker Device Placement Date:: 2013 Past Psychological History: Anxiety, Depression Smoking Status: Former smoker Past Alcohol Use History: Rare Additional Past Alcohol Use History / Comment(s): SMOKED X7 YEARS 2-3 PPD QUIT 1967 Past Drug Use History: None Reported - Past Family History Sister(s) Family Medical History: Cancer Additional Family Medical History / Comment(s): BREAST CANCER Father Additional Family Medical History / Comment(s): stomach aneurysm Medications and Allergies Home Medications Medication Instructions Recorded Confirmed Type Atorvastatin [Lipitor] 40 mg PO HS 04/16/14 01/20/17 History Dabigatran [Pradaxa] 150 mg PO BID 04/16/14 01/20/17 History Levothyroxine Sodium [Synthroid] 50 mcg PO DAILY 04/16/14 01/20/17 History Propafenone [Rythmol] 150 mg PO TID 04/16/14 01/20/17 History busPIRone HCL [Buspar] 15 mg PO BID 04/16/14 01/20/17 History Albuterol Inhaler [Ventolin Hfa 1 - 2 puff INHALATION RT-Q6H PRN 12/16/16 History Inhaler] Fish Oil/Dha/Epa [Fish Oil 1,200 1 cap PO BID 12/16/16 01/20/17 History mg Fish Oil] Diltiazem Cd [Cardizem Cd] 180 mg PO DAILY 01/20/17 01/20/17 History buPROPion [Wellbutrin] 100 mg PO BID 01/20/17 01/20/17 History Allergies Allergy/AdvReac Type Severity Reaction Status Date / Time peanut Allergy Anaphylaxis Verified 01/20/17 17:57 Physical Examination - Vital Signs Vital Signs: Vital Signs Temp Pulse Resp BP Pulse Ox 01/21/17 09:29 97.7 F 64 18 134/65 94 L 01/21/17 03:00 97.1 F L 59 L 16 126/60 96 01/20/17 23:00 71 18 147/73 94 L 01/20/17 22:00 154/62 01/20/17 20:00 98.9 F 79 18 155/87 94 L 01/20/17 19:49 16 153/70 96 Intake and Output 01/20/17 01/21/17 01/21/17 22:59 06:59 14:59 Intake Total 260 Output Total 1200 Balance -1200 260 Intake: Oral 260 Output: Urine 1200 Other: # Voids 3 Weight 127.006 kg 127.2 kg - Constitutional General appearance: average body habitus, cooperative - EENT EENT: mucous membranes moist - Respiratory Respiratory: lungs clear, normal breath sounds - Cardiovascular Cardiovascular: regular rate, normal S1, normal S2 Extremities: no peripheral edema bilaterally - Gastrointestinal Gastrointestinal: normoactive bowel sounds - Integumentary Integumentary: normal - Neurologic Cranial nerve examination: PERRL, VFF, V1/V2/V3 grossly intact, tongue midline, intact gag reflex, intact corneal reflex, normal palatal elevation Speech examination: intact Sensorimotor examination: intact Detailed motor examination: grossly full strength in all extremities Detailed sensory examination: intact Reflexes: 1+: ankle, bicep, knee, tricep - Musculoskeletal Musculoskeletal: no pain - Psychiatric Psychiatric: mood/affect appropriate, cooperative Results - Laboratory Findings CBC and BMP: 01/20/17 16:50 01/20/17 16:50 Assessment and Plan (1) TIA involving left internal carotid artery Status: Acute Code(s): G45.1 - CAROTID ARTERY SYNDROME (HEMISPHERIC) (2) Transient cerebral ischemia Status: Acute Code(s): G45.9 - TRANSIENT CEREBRAL ISCHEMIC ATTACK, UNSPECIFIED (3) Atrial fibrillation Status: Acute Code(s): I48.91 - UNSPECIFIED ATRIAL FIBRILLATION (4) Leg weakness, bilateral Status: Acute Code(s): M62.81 - MUSCLE WEAKNESS (GENERALIZED) (5) S/P cardiac pacemaker procedure Status: Acute Code(s): Z95.0 - PRESENCE OF CARDIAC PACEMAKER Plan: This patient is a 76-year-old right-handed white male admitted to hospital with slurred speech and generalized weakness. Patient was at home and was unable to stand up due to generalized weakness. He had significant slurring of speech which is quite noticeable to him. The weakness was generalized and not one- sided. He was able to call 911 and was brought into the emergency room for further evaluation. He was seen in the ER by Dr. Chapman who ordered a computed tomography scan of the brain. Patient was not a tPA candidate as onset of symptoms was greater than 3 hours. His computed tomography scan of the brain was reported negative for any acute changes. Carotid Doppler study was also normal with no evidence of carotid artery stenosis. Patient has a history of chronic atrial fibrillation. He does have history of pacemaker placement and has also undergone cardiac ablation procedure in the past. He is currently taking Pradaxa for long-term anticoagulation. He is to be seen by cardiology regarding this recent TIA episode. His neurological examination at this time is nonfocal. We would recommend a repeat computed tomography scan of the brain to be done in 24 hours. He is not a candidate for MRI due to his pacemaker placement. Would recommend PT/OT evaluation for the patient. We will await further recommendations from cardiology regarding his bike atrial fibrillation and pacemaker placement. His overall prognosis at this time remains guarded. Time with Patient: Greater than 30
[2017-01-21] MEDS: FAMOTIDINE 20 MG TAB PO SCH ×2 (15:16→21:33)
[2017-01-21] MEDS: ASPIRIN 81 MG CHEW PO SCH (16:30)
--- NOTE | 2017-01-21 19:16 | ECHOF ---
Referral Reason:LV function MEASUREMENTS -------- HEIGHT: 182.9 cm WEIGHT: 131.5 kg BP: IVSd: 1.2 cm (0.6 - 1.1) LVIDd: 4.5 cm (3.9 - 5.3) LVPWd: 1.2 cm (0.6 - 1.1) IVSs: 1.8 cm LVIDs: 3.9 cm LVPWs: 1.2 cm LAESV Index (A-L): 31.01 ml/m Ao Diam: 3.9 cm (2.0 - 3.7) AV Cusp: 2.0 cm (1.5 - 2.6) LA Diam: 4.6 cm (2.7 - 3.8) MV EXCURSION: 22.256 mm (> 18.000) MV EF SLOPE: 92 mm/s (70 - 150) EPSS: 1.1 cm MV E Topher: 0.62 m/s MV DecT: 213 ms MV A Topher: 0.64 m/s MV E/A Ratio: 0.97 RAP: 5.00 mmHg RVSP: 29.63 mmHg FINDINGS -------- Sinus rhythm. This was a technically adequate study. Morbid Obesity There is mild concentric left ventricular hypertrophy. Overall left ventricular systolic function is low-normal with, an EF between 50 - 55 %. The right ventricle is normal in size. LA is midly dilated 29-33ml/m2. The right atrial size is normal. There is mild aortic valve sclerosis. There is no evidence of aortic regurgitation. Mild mitral annular calcification present. Mild mitral regurgitation is present. Mild tricuspid regurgitation present. There is no evidence of pulmonary hypertension. The right ventricular systolic pressure, as measured by Doppler, is 29.63mmHg. There is no pulmonic regurgitation present. The aortic root size is normal. There is no pericardial effusion. CONCLUSIONS -------- 1. This was a technically adequate study. 2. There is no evidence of pulmonary hypertension. 3. The right ventricular systolic pressure, as measured by Doppler, is 29.63mmHg. 4. Morbid Obesity 5. There is mild concentric left ventricular hypertrophy. 6. Overall left ventricular systolic function is low-normal with, an EF between 50 - 55 %. 7. LA is midly dilated 29-33ml/m2. 8. There is mild aortic valve sclerosis. 9. Mild mitral annular calcification present. 10. Mild mitral regurgitation is present. 11. Mild tricuspid regurgitation present. C PYTHON DEVELOPER: Glory Pollock RDCS
[2017-01-21] MEDS: ATORVASTATIN 40 MG TAB PO SCH (21:33)
[2017-01-22] MEDS: LEVOTHYROXINE 50 MCG TAB PO SCH (06:59)
[2017-01-22 07:02] LABS: Aty Lym Flag Slight; CH 32.4; CHCM 33.2; HCT 48.1 % (39.0-53.0); HDW 2.25; HGB 15.4 gm/dL (13.0-17.5); MCH 31.3 pg (25.0-35.0); MCV 97.8 fL (80.0-100.0); Mean Platelet Volume 8.2; RBC 4.92 m/uL (4.30-5.90); RDW 12.1 % (11.5-15.5); WBC 4.6 k/uL (3.8-10.6); WBC (Perox) 4.67
[2017-01-22 07:19] LABS: ALT 30 U/L (21-72); AST 53 U/L (17-59); Alkaline Phosphatase 98 U/L (38-126); Anion Gap 11 mmol/L; Blood Urea Nitrogen 17 mg/dL (9-20); Calcium 9.2 mg/dL (8.4-10.2); Carbon Dioxide 25 mmol/L (22-30); Chloride 106 mmol/L (98-107); Cholesterol 110 mg/dL (<200); Glucose 98 mg/dL (74-99); HDL Cholesterol 47 mg/dL (40-60); Non-African American GFR(MDRD) >60 (>60 ml/min/1.73 sqM); Potassium 4.9 mmol/L (3.5-5.1); Sodium 142 mmol/L (137-145); Total Bilirubin 1.1 mg/dL (0.2-1.3); Total Protein 6.8 g/dL (6.3-8.2); Triglycerides 65 mg/dL (<150)
[2017-01-22] MEDS: PROPAFENONE 150 MG TAB PO SCH ×3 (08:54→21:48)
[2017-01-22] MEDS: ASPIRIN 81 MG CHEW PO SCH (08:54)
[2017-01-22] MEDS: buPROPion 100 MG TAB PO SCH ×2 (08:54→21:47)
[2017-01-22] MEDS: DABIGATRAN 150 MG CAP PO SCH ×2 (08:54→21:48)
[2017-01-22] MEDS: busPIRone HCl 5 MG TAB PO SCH ×2 (08:54→21:48)
[2017-01-22] MEDS: FAMOTIDINE 20 MG TAB PO SCH ×2 (08:54→21:48)
--- NOTE | 2017-01-22 09:10 | CT ---
EXAMINATION TYPE: CT brain wo con DATE OF EXAM: 01/22/2017 8:52 AM COMPARISON: 01/20/2017 HISTORY: Left hemispheric TIA and slurred speech CT DLP: 1047.1 mGycm Automated exposure control for dose reduction was used. FINDINGS: There is no acute intracranial hemorrhage, mass effect, or midline shift identified. Mild to moderate generalized degenerative change of the greater frontal lobe component. Findings are stable. Calvarium is intact. Changes of mild chronic sinusitis. IMPRESSION: No acute intracranial hemorrhage, mass effect, or midline shift is seen.
--- NOTE | 2017-01-22 11:48 | P.PN ---
Subjective 76-year-old being seen sitting up in a chair. Patient states he could not sleep in the bed last night. Patient's denying any dizziness lightheadedness or shortness of breath or chest pain. Patients being followed by cardiology and neurology. Agents initial presentation to the emergency room with an episode of slurred speech with generalized weakness recommendations by cardiology and Dr. Crenshaw reviewed cardiology recommends adding a baby aspirin. Neurology PT OT. Patient not candidate for an MRI does have a pacemaker placement additionally patient was not a candidate for TPA is a onset of the symptoms were greater than 3 hours patient's CAT scan was reported as negative for any acute process repeat CAT scan this morning showed no acute intracranial hemorrhage no mass or midline shift noted Objective - Vital Signs Vital signs: Vital Signs Temp 97.2 F L 01/22/17 08:57 Pulse 62 01/22/17 08:57 Resp 18 01/22/17 08:57 BP 116/56 01/22/17 08:57 Pulse Ox 94 L 01/22/17 08:57 Intake & Output 01/21/17 01/22/17 01/22/17 17:59 06:59 18:59 Intake Total Output Total Balance Weight Intake: Intake, IV Titration Amount Sodium Chloride 0.9% 1, 000 ml @ 100 mls/hr IV . Q10H STA Rx#:[id number] Oral Output: Urine Other: Voiding Method # Voids 1 - Exam GENERAL APPEARANCE: 76-year-old patient is alert, oriented times three in no acute distress. Speech audible no slurred speech VITAL SIGNS: Reviewed HEENT: Head is normocephalic and atraumatic. Pupils are equal and reactive. The nares are patent. Oropharynx is clear without lesions. NECK: Supple without lymphadenopathy. Traches midline. HEART: S1, S2. Regular rate and rhythm. Monitor sinus rhythm LUNGS: No crackles or wheezes are heard. On room air no shortness of breath ABDOMEN: Soft, nontender, nondistended with good bowel sounds. No peritoneal signs. No palpable organomegaly or masses. EXTREMITIES: Normal skin color and turgor. No cyanosis, rash, ulceration, clubbing or edema. Radial pedal pulses are 2/4 bilaterally. NEUROLOGICAL: No focal deficits. Strength and sensation are grossly intact. - Labs CBC & Chem 7: 01/22/17 05:56 03/12/17 05:56 Assessment and Plan Plan: Impression Present on admission generalized weakness and inability to ambulate with slurred speech suspect due to a transient ischemic attack CAT scan of the brain no acute process Depressive disorder nonspecified Obesity BMI 38 History of obstructive sleep apnea on CPAP therapy at home Hyperlipidemia Hypothyroid on supplements paroxysmal atrial fibrillation on Pradaxa Echocardiogram left ventricular systolic function low normal EF 50-55% on echo done November 2015 carotid Dopplers bilaterally no significant hemodynamic stenosis noted History of prior TIA May 2016 generalized weakness Plan Continue recommendations by cardiology aspirin 81 mg daily Resume home meds as appropriate PT OT eval Repeat an echocardiogram Fall precautions DVT and GI prophylaxis Repeat labs in the morning Further recommendations pending The above dictated assessment and findings were discussed with dr jacinto Impression and the plan of care have been dictated as directed. Otilia Prado nurse practitioner acting as a scribe for dr jacinto
[2017-01-22 12:54] LABS: Add Differential Manual Differential
[2017-01-22 12:57] LABS: Nucleated Red Blood Cells 0 /100 WBC (0-0); Total Cells Counted 100; Toxic Vacuolation Present
[2017-01-22 12:58] LABS: Large Platelets Present; Manual Review Performed
--- NOTE | 2017-01-22 16:11 | P.PN ---
Subjective This patient is a 76-year-old male who was admitted hospital with episode of slurred speech and possible TIA. Patient underwent further evaluation in the emergency room including computed tomography scan of the brain. CAT scan was reported negative for any acute changes. He is unable to undergo MRI is he has a pacemaker placement. He was seen by cardiology as he has a history of atrial fibrillation. He is currently on Pradaxa. Cardiology is recommended placing him on one baby aspirin in addition. Patient had a repeat computed tomography scan of the brain performed today. CAT scan fails to reveal any acute intracranial abnormalities. His clinical history is consistent with TIA. Patient is sitting up in chair today. He has had no further recurrence of slurred speech or confusion. He was seen by his validation leader and was started on low-dose aspirin 81 mg daily in addition to his Pradaxa. Patient will likely be able to be discharged home tomorrow. Patient seems to be doing better today overall. We will continue close neurological follow-up for the patient during this admission. Objective - Vital Signs Vital signs: Vital Signs Temp 97.4 F L 01/22/17 11:56 Pulse 58 L 01/22/17 11:56 Resp 18 01/22/17 11:56 BP 102/55 01/22/17 11:56 Pulse Ox 99 01/22/17 11:56 Intake & Output 01/21/17 01/22/17 01/22/17 17:59 06:59 18:59 Intake Total Output Total Balance Weight Intake: Intake, IV Titration Amount Sodium Chloride 0.9% 1, 000 ml @ 100 mls/hr IV . Q10H STA Rx#:[id number] Oral Output: Urine Other: Voiding Method Toilet # Voids 1 - Exam Physical examination: PHYSICAL EXAMINATION: Patient is resting comfortably in bed. VITAL SIGNS: Blood pressure is [102/55]. Heart rate is [58]. Respiration is [18] . Temperature is [97.4]. HEENT: Head is atraumatic, neck is supple, there were no carotid bruits. CHEST: Lungs are clear to auscultation and percussion. CARDIAC: S1, S2 normal rate and rhythm. There is no murmur. ABDOMEN: Soft and nontender. Bowel sounds are present. EXTREMITIES: There is no pedal edema. Peripheral pulses are present. Neurological examination: Patient has a nonfocal neurological exam. - Labs CBC & Chem 7: 01/22/17 05:56 01/22/17 05:56 Assessment and Plan (1) TIA involving left internal carotid artery Status: Acute Code(s): G45.1 - CAROTID ARTERY SYNDROME (HEMISPHERIC) (2) Transient cerebral ischemia Status: Acute Code(s): G45.9 - TRANSIENT CEREBRAL ISCHEMIC ATTACK, UNSPECIFIED (3) Atrial fibrillation Status: Acute Code(s): I48.91 - UNSPECIFIED ATRIAL FIBRILLATION (4) Leg weakness, bilateral Status: Acute Code(s): M62.81 - MUSCLE WEAKNESS (GENERALIZED) (5) S/P cardiac pacemaker procedure Status: Acute Code(s): Z95.0 - PRESENCE OF CARDIAC PACEMAKER Plan: This patient is a 76-year-old right-handed white male admitted to hospital with slurred speech and generalized weakness. Patient was at home and was unable to stand up due to generalized weakness. He had significant slurring of speech which is quite noticeable to him. The weakness was generalized and not one- sided. He was able to call 911 and was brought into the emergency room for further evaluation. He was seen in the ER by Dr. Chapman who ordered a computed tomography scan of the brain. Patient was not a tPA candidate as onset of symptoms was greater than 3 hours. His computed tomography scan of the brain was reported negative for any acute changes. Carotid Doppler study was also normal with no evidence of carotid artery stenosis. Patient has a history of chronic atrial fibrillation. He does have history of pacemaker placement and has also undergone cardiac ablation procedure in the past. He is currently taking Pradaxa for long-term anticoagulation. He is to be seen by cardiology regarding this recent TIA episode. His neurological examination at this time is nonfocal. We would recommend a repeat computed tomography scan of the brain to be done in 24 hours. He is not a candidate for MRI due to his pacemaker placement. Would recommend PT/OT evaluation for the patient. We will await further recommendations from cardiology regarding his bike atrial fibrillation and pacemaker placement. His validation leader did start him on one baby aspirin daily 81 mg. He did have a repeat computed tomography scan of the brain performed today which is negative for any evidence of acute stroke or hemorrhage. No change from previous study. Patient is being considered for possible discharge home tomorrow. His overall prognosis at this time remains guarded.
[2017-01-22] MEDS: ATORVASTATIN 40 MG TAB PO SCH (21:47)
[2017-01-23 00:32] VITALS: TEMP 97.2
[2017-01-23] MEDS: LEVOTHYROXINE 50 MCG TAB PO SCH (06:45)
[2017-01-23 09:40] VITALS: BP 113/65; PULSE 56; RESP 16
[2017-01-23] MEDS: FAMOTIDINE 20 MG TAB PO SCH (09:40)
[2017-01-23] MEDS: DABIGATRAN 150 MG CAP PO SCH (09:40)
[2017-01-23] MEDS: PROPAFENONE 150 MG TAB PO SCH (09:40)
[2017-01-23] MEDS: busPIRone HCl 5 MG TAB PO SCH (09:41)
[2017-01-23] MEDS: ASPIRIN 81 MG CHEW PO SCH (09:41)
[2017-01-23] MEDS: buPROPion 100 MG TAB PO SCH (09:41)
--- NOTE | 2017-01-23 12:45 | P.DS ---
Providers Date of admission: 01/20/17 19:19 Expected date of discharge: 01/23/17 Attending physician: Elena Kraus Consults: 01/21/17 11:24 Consult Physician Urgent Consulting Provider: Ami Becerra Consult Reason/Comments: Generalized weakness history of paroxysmal A. fib Do you want consulting provider notified?: Yes Dr. Crenshaw [facility] [place] [facility] Course: Discharge diagnosis 1. Generalized weakness with slurred speech secondary to TIA. Patient had 2 computed tomography scan of the brain completed during this admission with no acute intracranial process noted. Carotid Doppler showed no significant hemodynamic stenosis. Echo showed an EF of 50-55% with no significant valvular abnormality. 2. Obesity 3. Hyperlipidemia 4. Paroxysmal atrial fibrillation on Pradaxa 5. Obstructive sleep apnea on CPAP at home Hospital course This is a 76-year-old male who had sudden onset of slurred speech and generalized weakness. Patient reported that he had to crawl to the phone to get help. He could not stand up. EMS was called and patient had workup completed for possible stroke. Patient had 2 CT scans of the brain showed no acute changes. Carotid Doppler showed no snacking hemodynamic stenosis. Echo showed no snacking valvular abnormality. He was seen by both cardiology and neurology. Cardiology did add a baby aspirin on top of the Pradaxa. Patient is tolerated this well. Speech has returned to normal. He has been up and ambulating. Weakness is improved as well. And he is medically stable for discharge. Patient did have an EEG completed. Results are pending. He'll follow up with his PCP in 1 week and they can review the results of that testing in the office. Patient Condition at Discharge: Stable Plan - Discharge Summary New Discharge Prescriptions: Aspirin 81 mg PO DAILY #30 chew Discharge Medication List Atorvastatin [Lipitor] 40 mg PO HS 04/16/14 [History] Dabigatran [Pradaxa] 150 mg PO BID 04/16/14 [History] Levothyroxine Sodium [Synthroid] 50 mcg PO DAILY 04/16/14 [History] Propafenone [Rythmol] 150 mg PO TID 04/16/14 [History] busPIRone HCL [Buspar] 15 mg PO BID 04/16/14 [History] Albuterol Inhaler [Ventolin Hfa Inhaler] 1 - 2 puff INHALATION RT-Q6H PRN [History] Fish Oil/Dha/Epa [Fish Oil 1,200 mg Fish Oil] 1 cap PO BID 12/16/16 [History] buPROPion [Wellbutrin] 100 mg PO BID 01/20/17 [History] Aspirin 81 mg PO DAILY #30 chew 01/23/17 [Rx] Follow up Appointment(s)/Referral(s): Marita Rick MD [Primary Care Provider] - 1 Week Activity/Diet/Wound Care/Special Instructions: Diet: cardiac Activity: as tolerated Discharge Disposition: HOME SELF-CARE
--- NOTE | 2017-01-24 10:15 | EEG ---
DATE OF SERVICE: 01/23/[address] Kraus. CONSULTING INTERPRETING PHYSICIAN: Dr. Walker Crenshaw INDICATIONS FOR EXAMINATION: This patient is a 76-year-old male being evaluated for episode of acute TIA. AGE: 76Y EEG FINDINGS: A routine 21-channel, awake digital EEG recording was accomplished utilizing the 10 to 20 international system with bipolar and referential montages. The background activity in the most alert resting state consists of a low to medium amplitude, fairly well-developed and well sustained 7 to 8 Hz activity over the posterior head regions. This posterior rhythm attenuates to eye opening. There is a small amount of low amplitude 18 to 20 Hz beta activity seen maximally over the anterior head regions. Muscle and movement artifact was observed on a few occasions during the tracing. Hyperventilation was not performed. Photic stimulation at flash frequencies of 2 to 30 Hz produced a good symmetrical occipital driving response. No epileptiform discharges were seen. IMPRESSION: This EEG is within normal limits for the patient's age. The EEG failed to reveal any focal, lateralized or epileptiform abnormalities. Clinical correlation is recommended.
== END 2017-01-23 13:52 | disposition home or self-care (01) | DRG 69 ==
LOC: EC 16:47 → 6SEL 19:19
PROVIDERS: ADMIT Internal Medicine; ATTEND Internal Medicine
DX: G45.9 Transient cerebral ischemic attack, unspecified (principal); I48.0 Paroxysmal atrial fibrillation; E66.01 Morbid (severe) obesity due to excess calories; Z68.38 Body mass index [BMI] 38.0-38.9, adult; E78.5 Hyperlipidemia, unspecified; G47.33 Obstructive sleep apnea (adult) (pediatric); M81.0 Age-related osteoporosis without current pathological fracture; F32.9 Major depressive disorder, single episode, unspecified; F41.9 Anxiety disorder, unspecified; E03.9 Hypothyroidism, unspecified; Z91.010 Allergy to peanuts; Z87.891 Personal history of nicotine dependence; Z95.0 Presence of cardiac pacemaker; Z86.73 Personal history of transient ischemic attack (TIA), and cerebral infarction without residual deficits; Z79.01 Long term (current) use of anticoagulants; Z79.899 Other long term (current) drug therapy; W19.XXXA Unspecified fall, initial encounter
CPT/HCPCS: 36415; 70450; 71020; 80053; 80061; 81001; 82550; 82553; 83735; 83880; 84443; 84484; 85025; 85610; 85730; 93005; 93306; 93880; 94760; 95816; 96360; 96361; 99291

== ENCOUNTER 2017-03-30 11:32 | Emergency (ER) | payer MEDICARE ==
[2017-03-30] MEDS ORDERED: SODIUM CHLORIDE 0.9% 1,000 ML IV STA (11:33)
--- NOTE | 2017-03-30 11:34 | ED ---
General Adult HPI - General Stated complaint: TIA Time Seen by Provider: 03/30/17 11:33 Source: RN notes reviewed, old records reviewed - History of Present Illness Initial comments: This is a 77-year-old male to the ER for evaluation. This male presents for evaluation of neurological complaint, slurred speech. Patient's history of CVA history of pacemaker history of prior stroke, history of multiple TIAs, multiple evaluations, patient is currently on blood thinners both aspirin and Pradaxa. Patient denies any trauma. 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 EMS was called by [facility] and patient was transferred to emergency room. - Related Data Home Medications Medication Instructions Recorded Confirmed Atorvastatin [Lipitor] 40 mg PO HS 04/16/14 01/20/17 Dabigatran [Pradaxa] 150 mg PO BID 04/16/14 01/20/17 Levothyroxine Sodium [Synthroid] 50 mcg PO DAILY 04/16/14 01/20/17 Propafenone [Rythmol] 150 mg PO TID 04/16/14 01/20/17 busPIRone HCL [Buspar] 15 mg PO BID 04/16/14 01/20/17 Albuterol Inhaler [Ventolin Hfa 1 - 2 puff INHALATION RT-Q6H PRN 12/16/16 Inhaler] Fish Oil/Dha/Epa [Fish Oil 1,200 1 cap PO BID 12/16/16 01/20/17 mg Fish Oil] buPROPion [Wellbutrin] 100 mg PO BID 01/20/17 01/20/17 Previous Rx's Medication Instructions Recorded Aspirin 81 mg PO DAILY #30 chew 01/23/17 Allergies Allergy/AdvReac Type Severity Reaction Status Date / Time peanut Allergy Anaphylaxis Verified 03/30/17 11:50 Review of Systems ROS Statement: Those systems with pertinent positive or pertinent negative responses have been documented in the HPI. ROS Other: All systems not noted in ROS Statement are negative. Past Medical History Past Medical History: Atrial Fibrillation, CVA/TIA, Hyperlipidemia, Sleep Apnea/ CPAP/BIPAP, Thyroid Disorder Additional Past Medical History / Comment(s): 12-09-15 ADMITTED WITH C/O CHEST PAIN, CLINICAL IMPRESSION WAS UNSTABLE ANGINA. OTHE PAST HX INCLUDES: sleep apnea, PAST AFIB/FLUTTER HAD CARDIAC ABLATION FOR THIS. ALSO FOUND TO HAVE SICK SINUS SYNDROME,SYMPTOMATIC SINUS BRADYCARDIA AND HAD DUAL CHAMBERED PAEMEKER PLACED 2014, OSTEOPOROSIS.PER PAST MED RECORD MVP. History of Any Multi-Drug Resistant Organisms: None Reported Past Surgical History: Adenoidectomy, Heart Catheterization, Pacemaker, Tonsillectomy Additional Past Surgical History / Comment(s): left eye, EP STUDY cardiac ablation, PACEMAKER, HEART CATHS X3, HEMORROIDECTOMY, SX FOR SLEEP APNEA, MOLE REMOVED LT LEG(BENIGN) Past Anesthesia/Blood Transfusion Reactions: No Reported Reaction Type of Cardiac Device: Permanent Pacemaker Device Placement Date:: 2013 Past Psychological History: Anxiety, Depression Smoking Status: Former smoker Past Alcohol Use History: Rare Additional Past Alcohol Use History / Comment(s): SMOKED X7 YEARS 2-3 PPD QUIT 1968 Past Drug Use History: None Reported - Past Family History Sister(s) Family Medical History: Cancer Additional Family Medical History / Comment(s): BREAST CANCER Father Additional Family Medical History / Comment(s): stomach aneurysm General Exam General appearance: alert, in no apparent distress Head exam: Present: atraumatic, normocephalic, normal inspection Eye exam: Present: normal appearance, PERRL, EOMI. Absent: scleral icterus, conjunctival injection, periorbital swelling ENT exam: Present: normal exam, mucous membranes moist Neck exam: Present: normal inspection. Absent: tenderness, meningismus, lymphadenopathy Respiratory exam: Present: normal lung sounds bilaterally. Absent: respiratory distress, wheezes, rales, rhonchi, stridor Cardiovascular Exam: Present: regular rate, normal rhythm, normal heart sounds. Absent: systolic murmur, diastolic murmur, rubs, gallop, clicks GI/Abdominal exam: Present: soft, normal bowel sounds. Absent: distended, tenderness, guarding, rebound, rigid Extremities exam: Present: normal inspection, full ROM, normal capillary refill. Absent: tenderness, pedal edema, joint swelling, calf tenderness Back exam: Present: normal inspection Neurological exam: Present: alert, oriented X3, CN II-XII intact Psychiatric exam: Present: normal affect, normal mood Skin exam: Present: warm, dry, intact, normal color. Absent: rash Course Vital Signs 03/30/17 11:35 Pulse Rate 60 Respiratory 16 Rate Blood Pressure 120/56 O2 Sat by Pulse 97 Oximetry - Reevaluation(s) Reevaluation #1: 03/30/17 12:59 The patient is denying any neurological changes at this point, since he does not want to be in the hospital, he has been in the hospital multiple times for similar evaluations which have all cumulate into no results EKG Findings - EKG Comments: EKG Findings:: EKG shows paced rhythm rate of 62, QRS 90, QTC 416 Medical Decision Making - Medical Decision Making 77 mallei are with history of CVA coming the case symptoms including slurred speech during exercise or exertion. Symptoms are resolved currently patient wants to be discharged home. CT lab work is negative - Lab Data Result diagrams: 03/30/17 11:40 03/30/17 11:40 Lab Results 03/30/17 03/30/17 03/30/17 Range/Units 11:40 11:40 11:40 WBC 6.4 (3.8-10.6) k/uL RBC 4.62 (4.30-5.90) m/uL Hgb 15.0 (13.0-17.5) gm/dL Hct 44.3 (39.0-53.0) % MCV 95.9 (80.0-100.0) fL MCH 32.4 (25.0-35.0) pg MCHC 33.8 (31.0-37.0) g/dL RDW 12.3 (11.5-15.5) % Plt Count 260 (150-450) k/uL Neutrophils % 58 % Lymphocytes % 26 % Monocytes % 9 % Eosinophils % 2 % Basophils % 1 % Neutrophils # 3.7 (1.3-7.7) k/uL Lymphocytes # 1.7 (1.0-4.8) k/uL Monocytes # 0.6 (0-1.0) k/uL Eosinophils # 0.1 (0-0.7) k/uL Basophils # 0.1 (0-0.2) k/uL PT (9.0-12.0) sec INR (<1.1) APTT (22.0-30.0) sec Sodium 142 (137-145) mmol/L Potassium 4.3 (3.5-5.1) mmol/L Chloride 111 H (98-107) mmol/L Carbon Dioxide 20 L (22-30) mmol/L Anion Gap 11 mmol/L BUN 18 (9-20) mg/dL Creatinine 1.25 (0.66-1.25) mg/dL Est GFR (MDRD) Af Amer >60 (>60 ml/min/1.73 sqM) Est GFR (MDRD) Non-Af 56 (>60 ml/min/1.73 sqM) Glucose 114 H (74-99) mg/dL Calcium 9.0 (8.4-10.2) mg/dL Phosphorus 2.6 (2.5-4.5) mg/dL Magnesium 2.1 (1.6-2.3) mg/dL Total Bilirubin 1.6 H (0.2-1.3) mg/dL AST 31 (17-59) U/L ALT 26 (21-72) U/L Alkaline Phosphatase 114 (38-126) U/L Total Creatine Kinase 149 (55-170) U/L CK-MB (CK-2) 1.1 (0.0-2.4) ng/mL CK-MB (CK-2) Rel Index 0.7 Troponin I <0.012 (0.000-0.034) ng/mL Total Protein 7.1 (6.3-8.2) g/dL Albumin 3.9 (3.5-5.0) g/dL 03/30/17 Range/Units 11:40 WBC (3.8-10.6) k/uL RBC (4.30-5.90) m/uL Hgb (13.0-17.5) gm/dL Hct (39.0-53.0) % MCV (80.0-100.0) fL MCH (25.0-35.0) pg MCHC (31.0-37.0) g/dL RDW (11.5-15.5) % Plt Count (150-450) k/uL Neutrophils % % Lymphocytes % % Monocytes % % Eosinophils % % Basophils % % Neutrophils # (1.3-7.7) k/uL Lymphocytes # (1.0-4.8) k/uL Monocytes # (0-1.0) k/uL Eosinophils # (0-0.7) k/uL Basophils # (0-0.2) k/uL PT 18.4 H (9.0-12.0) sec INR 1.9 (<1.1) APTT 51.2 H (22.0-30.0) sec Sodium (137-145) mmol/L Potassium (3.5-5.1) mmol/L Chloride (98-107) mmol/L Carbon Dioxide (22-30) mmol/L Anion Gap mmol/L BUN (9-20) mg/dL Creatinine (0.66-1.25) mg/dL Est GFR (MDRD) Af Amer (>60 ml/min/1.73 sqM) Est GFR (MDRD) Non-Af (>60 ml/min/1.73 sqM) Glucose (74-99) mg/dL Calcium (8.4-10.2) mg/dL Phosphorus (2.5-4.5) mg/dL Magnesium (1.6-2.3) mg/dL Total Bilirubin (0.2-1.3) mg/dL AST (17-59) U/L ALT (21-72) U/L Alkaline Phosphatase (38-126) U/L Total Creatine Kinase (55-170) U/L CK-MB (CK-2) (0.0-2.4) ng/mL CK-MB (CK-2) Rel Index Troponin I (0.000-0.034) ng/mL Total Protein (6.3-8.2) g/dL Albumin (3.5-5.0) g/dL - Radiology Data Radiology results: report reviewed (CT brain is negative for acute disease), image reviewed Disposition Clinical Impression: Transient cerebral ischemia Disposition: HOME SELF-CARE Condition: Good Instructions: Transient Ischemic Attack (ED) Referrals: Marita Rick MD [Primary Care Provider] - 1-2 days
[2017-03-30 12:01] LABS: Basophils # (A) 0.1 k/uL (0-0.2); Basophils % (A) 1 %; CH 32.8; CHCM 34.3; Eosinophils # (A) 0.1 k/uL (0-0.7); Eosinophils % (A) 2 %; HCT 44.3 % (39.0-53.0); HDW 2.36; Luc # (Auto) 0.23; Luc % (Auto) 4; Lymphocytes # (A) 1.7 k/uL (1.0-4.8); Lymphocytes % (A) 26 %; MCH 32.4 pg (25.0-35.0); MCHC 33.8 g/dL (31.0-37.0); MCV 95.9 fL (80.0-100.0); Mean Platelet Volume 7.7; Monocytes # (A) 0.6 k/uL (0-1.0); Monocytes % (A) 9 %; Neutrophils # (A) 3.7 k/uL (1.3-7.7); Neutrophils % (A) 58 %; RBC 4.62 m/uL (4.30-5.90); RDW 12.3 % (11.5-15.5); WBC 6.4 k/uL (3.8-10.6); WBC (Perox) 6.18
[2017-03-30 12:17] LABS: INR 1.9 (<1.1); Partial Thromboplastin Time 51.2 sec (22.0-30.0); Prothrombin Time 18.4 sec (9.0-12.0)
[2017-03-30 12:21] LABS: Creatine Kinase 149 U/L (55-170)
[2017-03-30 12:35] LABS: Creatine Kinase MB 1.1 ng/mL (0.0-2.4); Troponin I <0.012 ng/mL (0.000-0.034)
--- NOTE | 2017-03-30 12:52 | CT ---
EXAMINATION TYPE: CT brain wo con DATE OF EXAM: 03/30/2017 12:42 PM HISTORY: Weakness, TIA like symptoms CT DLP: 1121 mGycm. Automated Exposure Control for Dose Reduction was Utilized. TECHNIQUE: CT scan of the head is performed without contrast. COMPARISON: CT brain January 22, 2017. FINDINGS: There is no acute intracranial hemorrhage or midline shift identified. There is diffuse v entricular and sulcal prominence consistent with diffuse age-related cerebral atrophy. The globes ar e intact and the visualized sinuses are clear. IMPRESSION: No acute intracranial hemorrhage or midline shift. There is moderate diffuse age-relate d cerebral atrophy redemonstrated without significant change from prior.
[2017-03-30 12:57] LABS: ALT 26 U/L (21-72); AST 31 U/L (17-59); Alkaline Phosphatase 114 U/L (38-126); Anion Gap 11 mmol/L; Blood Urea Nitrogen 18 mg/dL (9-20); Carbon Dioxide 20 mmol/L (22-30); Chloride 111 mmol/L (98-107); Glucose 114 mg/dL (74-99); Magnesium 2.1 mg/dL (1.6-2.3); Non-African American GFR(MDRD) 56 (>60 ml/min/1.73 sqM); Phosphorous 2.6 mg/dL (2.5-4.5); Potassium 4.3 mmol/L (3.5-5.1); Sodium 142 mmol/L (137-145); Total Bilirubin 1.6 mg/dL (0.2-1.3); Total Protein 7.1 g/dL (6.3-8.2)
[2017-03-30 14:06] VITALS: BP 138/64; PULSE 50; RESP 18; TEMP 98.1
== END 2017-03-30 14:08 | disposition home or self-care (01) ==
LOC: EC 11:32
DX: G45.9 Transient cerebral ischemic attack, unspecified (principal); R06.02 Shortness of breath; I48.91 Unspecified atrial fibrillation; E78.5 Hyperlipidemia, unspecified; E07.9 Disorder of thyroid, unspecified; G47.30 Sleep apnea, unspecified; F32.9 Major depressive disorder, single episode, unspecified; F41.9 Anxiety disorder, unspecified; Z87.891 Personal history of nicotine dependence; Z79.899 Other long term (current) drug therapy; Z91.010 Allergy to peanuts
CPT/HCPCS: 36415; 70450; 80053; 82550; 82553; 83735; 84100; 84484; 85025; 85610; 85730; 93005; 96360; 96361; 99285

== ENCOUNTER 2017-05-25 11:23 | Emergency (ER) | payer MEDICARE ==
[2017-05-25] MEDS ORDERED: SODIUM CHLORIDE 0.9% 1,000 ML IV STA (11:37)
--- NOTE | 2017-05-25 11:40 | ED ---
Neuro HPI - General Chief Complaint: Neuro Symptoms/Deficit Stated Complaint: left arm weakness Time Seen by Provider: 05/25/17 11:30 Source: patient Mode of arrival: wheelchair Limitations: no limitations - History of Present Illness Is the patient presenting with stroke symptoms?: Yes Initial Comments: This is a 77-year-old male with a history of atrial fibrillation and a TIA about a month ago who states he had the onset about an hour ago of left upper extremity weakness and loss of dexterity to his left thumb. He does state he has lumbar disc disease but no known cervical disc disease. He denies any headache or vision loss of function to his other extremities no recent fevers chills sweats or trauma. The patient does not believe he has slurred speech. - Related Data Home Medications: Home Medications Medication Instructions Recorded Confirmed Atorvastatin [Lipitor] 40 mg PO HS 04/16/14 03/30/17 Dabigatran [Pradaxa] 150 mg PO BID 04/16/14 03/30/17 Levothyroxine Sodium [Synthroid] 50 mcg PO DAILY 04/16/14 03/30/17 Propafenone [Rythmol] 150 mg PO TID 04/16/14 03/30/17 busPIRone HCL [Buspar] 15 mg PO BID 04/16/14 03/30/17 Albuterol Inhaler [Ventolin Hfa 1 - 2 puff INHALATION RT-Q6H PRN 12/16/16 Inhaler] Fish Oil/Dha/Epa [Fish Oil 1,200 1 cap PO BID 12/16/16 03/30/17 mg Fish Oil] buPROPion [Wellbutrin] 100 mg PO BID 01/20/17 03/30/17 Previous Rx's Medication Instructions Recorded Aspirin 81 mg PO DAILY #30 chew 01/23/17 Allergies/Adverse Reactions: Allergies Allergy/AdvReac Type Severity Reaction Status Date / Time peanut Allergy Anaphylaxis Verified 05/25/17 11:28 Review of Systems ROS Statement: Those systems with pertinent positive or pertinent negative responses have been documented in the HPI. ROS Other: All systems not noted in ROS Statement are negative. General Exam - General Exam Comments Initial Comments: This is a well-developed well-nourished awake alert oriented 3 male Limitations: no limitations General appearance: alert, anxious Head exam: Present: atraumatic, normocephalic, normal inspection Eye exam: Present: normal appearance, PERRL, EOMI. Absent: scleral icterus, conjunctival injection, periorbital swelling ENT exam: Present: normal exam, mucous membranes moist Neck exam: Present: normal inspection. Absent: tenderness, meningismus, lymphadenopathy Respiratory exam: Present: normal lung sounds bilaterally. Absent: respiratory distress, wheezes, rales, rhonchi, stridor Cardiovascular Exam: Present: normal rhythm, bradycardia, normal heart sounds. Absent: systolic murmur, diastolic murmur, rubs, gallop, clicks GI/Abdominal exam: Present: soft, normal bowel sounds. Absent: distended, tenderness, guarding, rebound, rigid Rectal exam: Present: deferred Extremities exam: Present: normal inspection, normal capillary refill. 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 Absent: rash Stroke MDM - Lab Data Result diagrams: 05/25/17 12:06 Lab Results 05/25/17 05/25/17 Range/Units 11:42 12:06 WBC 7.0 (3.8-10.6) k/uL RBC 4.31 (4.30-5.90) m/uL Hgb 14.2 (13.0-17.5) gm/dL Hct 40.0 (39.0-53.0) % MCV 92.8 (80.0-100.0) fL MCH 32.9 (25.0-35.0) pg MCHC 35.5 (31.0-37.0) g/dL RDW 12.3 (11.5-15.5) % Plt Count 227 (150-450) k/uL Neutrophils % 59 % Lymphocytes % 25 % Monocytes % 10 % Eosinophils % 2 % Basophils % 1 % Neutrophils # 4.1 (1.3-7.7) k/uL Lymphocytes # 1.7 (1.0-4.8) k/uL Monocytes # 0.7 (0-1.0) k/uL Eosinophils # 0.2 (0-0.7) k/uL Basophils # 0.1 (0-0.2) k/uL POC Glucose (mg/dL) 110 H (75-99) mg/dL POC Glu Automatic Buffing Wheel Former ID Aminah Wiseman - NIH Stroke Scale 1a. Level of Consciousness: (0) alert 1b. LOC Questions: (0) answers correctly 1c. LOC Commands: (0) performs tasks correctly 2. Best Gaze: (0) normal 3. Visual: (0) no visual loss 4. Facial Palsy: (0) normal symmetrical movement 5a. Motor Arm Left: (1) drift 5b. Motor Arm Right: (0) no drift 6a. Motor Leg Left: (0) no drift 6b. Motor Leg Right: (0) no drift 7. Limb Ataxia: (0) absent 8. Sensory: (0) normal 9. Best Language: (0) no aphasia 10. Dysarthria: (0) normal 11. Extinction/Inattention: (0) no abnormality - Thrombolytic Inclusion/Exclusion Thrombolytic Contraindications: Hx of ICH/AVM/Aneurysms - Medical Decision Making I did discuss the initial CAT scan findings with Dr. Briones from radiology there is a right side acute on chronic subdural hematoma approximately 1 cm thick with 1-2 mm of midline shift to the left. The patient she is on pradaxa admitted did discuss findings with the patient will be started on Primabind he will be transferred to a outside facility with neurosurgical capabilities. I did discuss case with Dr. Mckeon at [facility] was agreed to set the patient transfer. Patient is currently awake alert oriented 3 his vital signs are stable time close monitoring is indicated. - EKG Data -: EKG Interpreted by Me EKG shows normal: sinus rhythm (Sinus bradycardia rate of 59 appear 148 QRS 94 daily since QTC of 444/[address] configuration) Past Medical History Past Medical History: Atrial Fibrillation, CVA/TIA, Hyperlipidemia, Sleep Apnea/ CPAP/BIPAP, Thyroid Disorder Additional Past Medical History / Comment(s): 12-09-15 ADMITTED WITH C/O CHEST PAIN, CLINICAL IMPRESSION WAS UNSTABLE ANGINA. OTHE PAST HX INCLUDES: sleep apnea, PAST AFIB/FLUTTER HAD CARDIAC ABLATION FOR THIS. ALSO FOUND TO HAVE SICK SINUS SYNDROME,SYMPTOMATIC SINUS BRADYCARDIA AND HAD DUAL CHAMBERED PAEMEKER PLACED 2013, OSTEOPOROSIS.PER PAST MED RECORD MVP. History of Any Multi-Drug Resistant Organisms: None Reported Past Surgical History: Adenoidectomy, Heart Catheterization, Pacemaker, Tonsillectomy Additional Past Surgical History / Comment(s): left eye, EP STUDY cardiac ablation, PACEMAKER, HEART CATHS X3, HEMORROIDECTOMY, SX FOR SLEEP APNEA, MOLE REMOVED LT LEG(BENIGN) Past Anesthesia/Blood Transfusion Reactions: No Reported Reaction Type of Cardiac Device: Permanent Pacemaker Device Placement Date:: 2013 Past Psychological History: Anxiety, Depression Smoking Status: Former smoker Past Alcohol Use History: Rare Past Drug Use History: None Reported - Past Family History Sister(s) Family Medical History: Cancer Additional Family Medical History / Comment(s): BREAST CANCER Father Additional Family Medical History / Comment(s): stomach aneurysm Course Vital Signs 05/25/17 05/25/17 11:25 11:50 Temperature 98.5 F Pulse Rate 70 54 L Respiratory 20 16 Rate Blood Pressure 139/79 138/65 O2 Sat by Pulse 96 97 Oximetry - Reevaluation(s) Reevaluation #1: 05/25/17 12:31 Reevaluation the patient after return from CAT scan reveals no change in his mental status is awake alert oriented 3 Critical Care Time Critical Care Time: Yes Critical Care Time: 35 minutes of critical care time which includes initial presentation with history physical labs x-rays. Discussion with the radiologist. Reevaluation patient several occasions. Discussion with paramedics taking the patient to [facility]. Documentation of the above. Disposition Clinical Impression: Subdural hematoma, acute Disposition: OTHER INSTITUTION NOT DEFINED Condition: Stable Referrals: Marita Rick MD [Primary Care Provider] - 1-2 days - Out of Hospital Transfer - Req. Specs Out of Hospital Transfer - Requested Specifics: Other Emergency Center
[2017-05-25 11:54] LABS: Glucose,Whole Blood 110 mg/dL (75-99)
--- NOTE | 2017-05-25 12:05 | CT ---
EXAMINATION TYPE: CT brain wo con for TPA DATE OF EXAM: 05/25/2017 COMPARISON: 03/30/2017 HISTORY: 77-year-old male with left arm weakness. TECHNIQUE: Examination was done in axial plane without intravenous contrast. Coronal and sagittal r econstructions performed. CT DLP: 1287 mGycm Automated exposure control for dose reduction was used. FINDINGS: Moderate generalized supratentorial volume loss redemonstrated. New from 03/30/2017, there is mixed hyperdense and isodense crescentic extra-axial fluid along the rig ht frontal and frontoparietal convexity. This measures 1 cm thick. There is 1 to 2 mm of minimal left marinelli midline shift as compared to prior exam. Mild mass effect with flattening of the underlying cortical gyri. No other acute intracranial hemorrhage seen. Chan-white matter differentiation is maintained. No hydr ocephalus or herniation. Patient's gaze is slightly divergent suggesting underlying strabismus. Paranasal sinuses and mastoid air cells are well pneumatized. No calvarial fracture. IMPRESSION: As compared to 03/30/2017, there is new mixed acute and subacute subdural hematoma along the right con vexity measuring 1 cm thick. Slight underlying mass effect and a couple millimeters of leftward midli ne shift. No herniation or hydrocephalus. Findings called to Dr. Chapman in the ER at 12:00 PM.
[2017-05-25 12:26] LABS: Basophils # (A) 0.1 k/uL (0-0.2); Basophils % (A) 1 %; CH 32.4; Eosinophils # (A) 0.2 k/uL (0-0.7); Eosinophils % (A) 2 %; HDW 2.33; HGB 14.2 gm/dL (13.0-17.5); Luc # (Auto) 0.21; Luc % (Auto) 3; Lymphocytes # (A) 1.7 k/uL (1.0-4.8); Lymphocytes % (A) 25 %; MCH 32.9 pg (25.0-35.0); MCHC 35.5 g/dL (31.0-37.0); MCV 92.8 fL (80.0-100.0); Mean Platelet Volume 7.6; Monocytes # (A) 0.7 k/uL (0-1.0); Monocytes % (A) 10 %; Neutrophils # (A) 4.1 k/uL (1.3-7.7); Neutrophils % (A) 59 %; RBC 4.31 m/uL (4.30-5.90); RDW 12.3 % (11.5-15.5); WBC (Perox) 6.48
[2017-05-25 12:38] LABS: INR 1.7 (<1.1); Partial Thromboplastin Time 49.3 sec (22.0-30.0); Prothrombin Time 16.5 sec (9.0-12.0)
[2017-05-25] MEDS: IDARUCIZUMAB 2.5 GM in EMPTY BAG 1 BAG IV SCH ×2 (12:42→13:10)
--- NOTE | 2017-05-25 12:57 | XR ---
EXAMINATION TYPE: XR chest 1V portable DATE OF EXAM: 05/25/2017 COMPARISON: Chest x-ray January 20, 2017. HISTORY: Chest pain. TECHNIQUE: Single AP portable frontal upright view of the chest is obtained. FINDINGS: There is chronic parenchymal change without suspicious new focal airspace opacity or pneum othorax seen bilaterally. Residual small bilateral pleural effusions are difficult to exclude without lateral view. The cardiac silhouette size remains mildly enlarged with dual lead pacemaker. The os seous structures are intact. IMPRESSION: Stable cardiomegaly without acute pulmonary infiltrate. Suspect stable small bilateral e ffusions.
[2017-05-25 13:04] LABS: Creatine Kinase 82 U/L (55-170)
--- NOTE | 2017-05-25 13:04 | CT ---
EXAMINATION TYPE: CT angio head neck DATE OF EXAM: 05/25/2017 COMPARISON: 08/18/2015 HISTORY: 77-year-old male Lt arm weakness TECHNIQUE: Contiguous axial scanning of the head and neck performed with IV Contrast, patient injecte d with 65 mL of Omnipaque 350. Coronal/sagittal MIP reconstructions performed. 3-D reconstructions ge nerated on a dedicated independent workstation.. CT DLP: 528 mGycm Automated exposure control for dose reduction was used. FINDINGS: Neck: Conventional arch vessel branching anatomy. There is mild apical scarring change at the right carotid bulb without any significant stenosis. Both common carotid arteries are patent. The left internal carotid artery is patent. Redemonstrated dominant right vertebral artery. 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 Persistent origin of the right posterior cerebral a rtery. No large vessel intracranial arterial occlusion or aneurysmal change is seen. IMPRESSION: 1. MILD ATHEROSCLEROTIC CHANGE AT THE RIGHT CAROTID BIFURCATION WITHOUT HEMODYNAMICALLY SIGNIFICANT S TENOSIS ON EITHER SIDE. 2. NO LARGE VESSEL INTRACRANIAL OCCLUSION OR ANEURYSMAL CHANGE SEEN. SOME CONGENITAL VARIATION MEN TIONED ABOVE.
[2017-05-25 13:06] LABS: ALT 22 U/L (21-72); AST 25 U/L (17-59); Alkaline Phosphatase 109 U/L (38-126); Anion Gap 8 mmol/L; Blood Urea Nitrogen 16 mg/dL (9-20); Calcium 8.6 mg/dL (8.4-10.2); Carbon Dioxide 22 mmol/L (22-30); Chloride 111 mmol/L (98-107); Glucose 100 mg/dL (74-99); Non-African American GFR(MDRD) >60 (>60 ml/min/1.73 sqM); Sodium 141 mmol/L (137-145); Total Bilirubin 1.2 mg/dL (0.2-1.3); Total Protein 5.7 g/dL (6.3-8.2)
[2017-05-25 13:16] LABS: Creatine Kinase MB 0.6 ng/mL (0.0-2.4); Troponin I <0.012 ng/mL (0.000-0.034)
[2017-05-25 13:37] VITALS: PULSE 62
[2017-05-25 13:42] VITALS: BP 145/66; RESP 18; TEMP 97.9
== END 2017-05-25 13:33 | disposition short-term general hospital (02) ==
LOC: EC 11:23
DX: I62.00 Nontraumatic subdural hemorrhage, unspecified (principal); R00.1 Bradycardia, unspecified; I48.91 Unspecified atrial fibrillation; F41.9 Anxiety disorder, unspecified; E78.5 Hyperlipidemia, unspecified; E07.9 Disorder of thyroid, unspecified; F32.9 Major depressive disorder, single episode, unspecified; Z91.010 Allergy to peanuts; Z87.891 Personal history of nicotine dependence; Z79.01 Long term (current) use of anticoagulants; Z79.899 Other long term (current) drug therapy
CPT/HCPCS: 99291; 96365; 36415; 93005; 80053; 82550; 82553; 84484; 85025; 85610; 85730; 71010; 70496; 70450; 70498; Q9967; C9399

== ENCOUNTER 2017-06-22 11:09 | Inpatient (IN) | payer MEDICARE ==
[2017-06-22] MEDS ORDERED: SODIUM CHLORIDE 0.9% 500 ML IV STA (11:19)
[2017-06-22 11:22] LABS: Glucose,Whole Blood 91 mg/dL (75-99)
--- NOTE | 2017-06-22 11:34 | ED ---
General Adult HPI - General Stated complaint: TIA Time Seen by Provider: 06/22/17 11:10 Source: RN notes reviewed - History of Present Illness Initial comments: This a 77-year-old male who presents emergency Department with a past medical history significant for atrial fibrillation and pacemaker placement multiple TIAs in a subarachnoid bleed a few months ago. Patient comes into the emergency department today because he started having slurred speech approximately 30 minutes prior to arrival the slurred speech has since subsided. Patient denies any facial droop patient denies any weakness numbness. Patient denies any chest pain palpitations difficulty breathing or shortness of breath. Patient states he feels as though he is at his a sliding currently. Patient states she had many TIAs in the past most of the time he does not come to the hospital but because there was a medical personnel where he was at the insisted he come. - Related Data Home Medications Medication Instructions Recorded Confirmed Atorvastatin [Lipitor] 40 mg PO HS 04/16/14 06/22/17 Levothyroxine Sodium [Synthroid] 50 mcg PO DAILY 04/16/14 06/22/17 Propafenone [Rythmol] 150 mg PO TID 04/16/14 06/22/17 busPIRone HCL [Buspar] 15 mg PO BID 04/16/14 06/22/17 Albuterol Inhaler [Ventolin Hfa 1 - 2 puff INHALATION RT-Q6H PRN 12/16/16 Inhaler] Fish Oil/Dha/Epa [Fish Oil 1,200 1 cap PO BID 12/16/16 06/22/17 mg Fish Oil] buPROPion [Wellbutrin] 100 mg PO BID 01/20/17 06/22/17 Keppra (Unknown Dose) 1 tab PO BID 06/22/17 06/22/17 levETIRAcetam [Keppra] 500 mg PO Q12HR 06/22/17 06/22/17 Previous Rx's Medication Instructions Recorded Aspirin 81 mg PO DAILY #30 chew 01/23/17 Allergies Allergy/AdvReac Type Severity Reaction Status Date / Time peanut Allergy Anaphylaxis Verified 05/25/17 11:28 Review of Systems ROS Statement: Those systems with pertinent positive or pertinent negative responses have been documented in the HPI. ROS Other: All systems not noted in ROS Statement are negative. Past Medical History Past Medical History: Atrial Fibrillation, CVA/TIA, Hyperlipidemia, Sleep Apnea/ CPAP/BIPAP, Thyroid Disorder Additional Past Medical History / Comment(s): 12-09-15 ADMITTED WITH C/O CHEST PAIN, CLINICAL IMPRESSION WAS UNSTABLE ANGINA. OTHE PAST HX INCLUDES: sleep apnea, PAST AFIB/FLUTTER HAD CARDIAC ABLATION FOR THIS. ALSO FOUND TO HAVE SICK SINUS SYNDROME,SYMPTOMATIC SINUS BRADYCARDIA AND HAD DUAL CHAMBERED PAEMEKER PLACED 2013, OSTEOPOROSIS.PER PAST MED RECORD MVP. History of Any Multi-Drug Resistant Organisms: None Reported Past Surgical History: Adenoidectomy, Heart Catheterization, Pacemaker, Tonsillectomy Additional Past Surgical History / Comment(s): left eye, EP STUDY cardiac ablation, PACEMAKER, HEART CATHS X3, HEMORROIDECTOMY, SX FOR SLEEP APNEA, MOLE REMOVED LT LEG(BENIGN) Past Anesthesia/Blood Transfusion Reactions: No Reported Reaction Type of Cardiac Device: Permanent Pacemaker Device Placement Date:: 2013 Past Psychological History: Anxiety, Depression Smoking Status: Former smoker Past Alcohol Use History: Rare Past Drug Use History: None Reported - Past Family History Sister(s) Family Medical History: Cancer Additional Family Medical History / Comment(s): BREAST CANCER Father Additional Family Medical History / Comment(s): stomach aneurysm General Exam - General Exam Comments Initial Comments: GENERAL: Patient is well-developed and well-nourished. Patient is nontoxic and well- hydrated and is in no acute distress. ENT: Neck is soft and supple. No significant lymphadenopathy is noted. Oropharynx is clear. Moist mucous membranes. Neck has full range of motion without eliciting any pain. EYES: The sclera were anicteric and conjunctiva were pink and moist. Extraocular movements were intact and pupils were equal round and reactive to light. Eyelids were unremarkable. PULMONARY: Unlabored respirations. Good breath sounds bilaterally. No audible rales rhonchi or wheezing was noted. CARDIOVASCULAR: There is a regular rate and rhythm without any murmurs gallops or rubs. ABDOMEN: Soft and nontender with normal bowel sounds. No palpable organomegaly was noted. There is no palpable pulsatile mass. SKIN: Skin is clear with no lesions or rashes and otherwise unremarkable. NEUROLOGIC: Patient is alert and oriented x3. Cranial nerves II through XII are grossly intact. Motor and sensory are also intact. Normal speech, volume and content. Symmetrical smile. MUSCULOSKELETAL: Normal extremities with adequate strength and full range of motion. No lower extremity swelling or edema. No calf tenderness. LYMPHATICS: No significant lymphadenopathy is noted PSYCHIATRIC: Normal psychiatric evaluation. Normal interpersonal interactions appears functionally intact in deals appropriately with others. No signs of depression. No signs of anxiety. Course Vital Signs 06/22/17 06/22/17 06/22/17 11:23 12:00 12:55 Temperature 98.0 F Pulse Rate 52 L 50 L 65 Respiratory 16 16 18 Rate Blood Pressure 126/63 120/72 152/79 O2 Sat by Pulse 98 97 98 Oximetry 06/22/17 13:18 Temperature Pulse Rate 52 L Respiratory 18 Rate Blood Pressure 152/79 O2 Sat by Pulse 99 Oximetry Medical Decision Making - Medical Decision Making EKG shows atrial paced rhythm at 50 bpm QRS is 98 QT interval is 414 QTC is 377. Patient's EKG shows no ST segment elevation or depression. CT of the brain shows no acute abnormality. Chest x-ray shows no acute normalities. Patient has had no more stroke or TIA-like deficits in the emergency department. I spoke with Dr. Kraus and he agreed to admit the patient admitted the patient and wrote admitting orders. - Lab Data Result diagrams: 06/22/17 11:27 06/22/17 11:27 Lab Results 06/22/17 06/22/17 06/22/17 Range/Units 11:19 11:27 11:27 WBC 7.5 (3.8-10.6) k/uL RBC 4.53 (4.30-5.90) m/uL Hgb 14.7 (13.0-17.5) gm/dL Hct 42.5 (39.0-53.0) % MCV 93.8 (80.0-100.0) fL MCH 32.5 (25.0-35.0) pg MCHC 34.6 (31.0-37.0) g/dL RDW 12.2 (11.5-15.5) % Plt Count 221 (150-450) k/uL Neutrophils % 59 % Lymphocytes % 25 % Monocytes % 11 % Eosinophils % 2 % Basophils % 1 % Neutrophils # 4.4 (1.3-7.7) k/uL Lymphocytes # 1.9 (1.0-4.8) k/uL Monocytes # 0.8 (0-1.0) k/uL Eosinophils # 0.1 (0-0.7) k/uL Basophils # 0.1 (0-0.2) k/uL PT (9.0-12.0) sec INR (<1.2) APTT (22.0-30.0) sec Sodium (137-145) mmol/L Potassium (3.5-5.1) mmol/L Chloride (98-107) mmol/L Carbon Dioxide (22-30) mmol/L Anion Gap mmol/L BUN (9-20) mg/dL Creatinine (0.66-1.25) mg/dL Est GFR (MDRD) Af Amer (>60 ml/min/1.73 sqM) Est GFR (MDRD) Non-Af (>60 ml/min/1.73 sqM) Glucose (74-99) mg/dL POC Glucose (mg/dL) 91 (75-99) mg/dL POC Glu Color Laboratory Technician ID Pam Kimble Calcium (8.4-10.2) mg/dL Total Bilirubin (0.2-1.3) mg/dL AST (17-59) U/L ALT (21-72) U/L Alkaline Phosphatase (38-126) U/L Total Creatine Kinase 72 (55-170) U/L CK-MB (CK-2) 0.7 (0.0-2.4) ng/mL CK-MB (CK-2) Rel Index 1.0 Troponin I <0.012 (0.000-0.034) ng/mL Total Protein (6.3-8.2) g/dL Albumin (3.5-5.0) g/dL 06/22/17 06/22/17 Range/Units 11:27 11:27 WBC (3.8-10.6) k/uL RBC (4.30-5.90) m/uL Hgb (13.0-17.5) gm/dL Hct (39.0-53.0) % MCV (80.0-100.0) fL MCH (25.0-35.0) pg MCHC (31.0-37.0) g/dL RDW (11.5-15.5) % Plt Count (150-450) k/uL Neutrophils % % Lymphocytes % % Monocytes % % Eosinophils % % Basophils % % Neutrophils # (1.3-7.7) k/uL Lymphocytes # (1.0-4.8) k/uL Monocytes # (0-1.0) k/uL Eosinophils # (0-0.7) k/uL Basophils # (0-0.2) k/uL PT 11.0 (9.0-12.0) sec INR 1.1 (<1.2) APTT 25.2 (22.0-30.0) sec Sodium 140 (137-145) mmol/L Potassium 4.4 (3.5-5.1) mmol/L Chloride 108 H (98-107) mmol/L Carbon Dioxide 22 (22-30) mmol/L Anion Gap 10 mmol/L BUN 19 (9-20) mg/dL Creatinine 1.10 (0.66-1.25) mg/dL Est GFR (MDRD) Af Amer >60 (>60 ml/min/1.73 sqM) Est GFR (MDRD) Non-Af >60 (>60 ml/min/1.73 sqM) Glucose 83 (74-99) mg/dL POC Glucose (mg/dL) (75-99) mg/dL POC Glu Color Laboratory Technician ID Calcium 9.2 (8.4-10.2) mg/dL Total Bilirubin 1.2 (0.2-1.3) mg/dL AST 28 (17-59) U/L ALT 28 (21-72) U/L Alkaline Phosphatase 111 (38-126) U/L Total Creatine Kinase (55-170) U/L CK-MB (CK-2) (0.0-2.4) ng/mL CK-MB (CK-2) Rel Index Troponin I (0.000-0.034) ng/mL Total Protein 6.2 L (6.3-8.2) g/dL Albumin 3.6 (3.5-5.0) g/dL Disposition Clinical Impression: Transient cerebral ischemia Disposition: ADMITTED IP TO THIS HOSP Referrals: Marita Rick MD [Primary Care Provider] - 1-2 days Time of Disposition: 14:15
[2017-06-22 11:55] LABS: Basophils # (A) 0.1 k/uL (0-0.2); Basophils % (A) 1 %; CH 32.1; CHCM 34.3; Eosinophils # (A) 0.1 k/uL (0-0.7); Eosinophils % (A) 2 %; HCT 42.5 % (39.0-53.0); HDW 2.31; HGB 14.7 gm/dL (13.0-17.5); Luc # (Auto) 0.26; Luc % (Auto) 4; Lymphocytes # (A) 1.9 k/uL (1.0-4.8); Lymphocytes % (A) 25 %; MCH 32.5 pg (25.0-35.0); MCHC 34.6 g/dL (31.0-37.0); MCV 93.8 fL (80.0-100.0); Mean Platelet Volume 7.5; Monocytes # (A) 0.8 k/uL (0-1.0); Monocytes % (A) 11 %; Neutrophils # (A) 4.4 k/uL (1.3-7.7); Neutrophils % (A) 59 %; RBC 4.53 m/uL (4.30-5.90); RDW 12.2 % (11.5-15.5); WBC 7.5 k/uL (3.8-10.6)
[2017-06-22 12:07] LABS: ALT 28 U/L (21-72); AST 28 U/L (17-59); Alkaline Phosphatase 111 U/L (38-126); Anion Gap 10 mmol/L; Blood Urea Nitrogen 19 mg/dL (9-20); Calcium 9.2 mg/dL (8.4-10.2); Carbon Dioxide 22 mmol/L (22-30); Chloride 108 mmol/L (98-107); Glucose 83 mg/dL (74-99); Non-African American GFR(MDRD) >60 (>60 ml/min/1.73 sqM); Potassium 4.4 mmol/L (3.5-5.1); Sodium 140 mmol/L (137-145); Total Bilirubin 1.2 mg/dL (0.2-1.3); Total Protein 6.2 g/dL (6.3-8.2)
--- NOTE | 2017-06-22 12:10 | CT ---
EXAMINATION TYPE: CT brain wo con for TPA DATE OF EXAM: 06/22/2017 HISTORY: TIA symptoms, neurodeficits per order. CT DLP: 1129 mGycm. Automated Exposure Control for Dose Reduction was Utilized. TECHNIQUE: CT scan of the head is performed without contrast. COMPARISON: CT brain May 25, 2017. FINDINGS: There is no new acute intracranial hemorrhage or midline shift identified. There is some residual but improving or resolving subacute on chronic right frontal extra-axial probable subdural h ematoma felt present. There is diffuse ventricular and sulcal prominence consistent with diffuse age- related cerebral atrophy. The globes are intact and the visualized sinuses are clear. IMPRESSION: No new acute intracranial hemorrhage or midline shift currently. Resolving right fronta l subacute on chronic subdural hemorrhage noted. There is mild to moderate diffuse age-related cerebr al atrophy redemonstrated. If clinical concern for acute stroke persists further investigation with MRI study may be warranted.
[2017-06-22 12:18] LABS: Creatine Kinase 72 U/L (55-170)
[2017-06-22 12:28] LABS: INR 1.1 (<1.2); Partial Thromboplastin Time 25.2 sec (22.0-30.0)
[2017-06-22 12:29] LABS: Creatine Kinase MB 0.7 ng/mL (0.0-2.4); Troponin I <0.012 ng/mL (0.000-0.034)
--- NOTE | 2017-06-22 13:32 | XR ---
EXAMINATION TYPE: XR chest 2V DATE OF EXAM: 06/22/2017 COMPARISON: Prior chest x-ray 05/25/2017 HISTORY: Altered mental status TECHNIQUE: Frontal and lateral views of the chest are obtained on 3 images. FINDINGS: There is no focal air space opacity, pleural effusion, or pneumothorax seen. The cardiac silhouette size is stable, the heart is enlarged although rotation may be accentuating the appearance . Some minimal patchy basilar density is present. Pacemaker leads are stable. The osseous structures are intact. IMPRESSION: Cardiomegaly. Possible basilar atelectasis or interstitial lung disease.
[2017-06-22] MEDS ORDERED: SODIUM CHLORIDE 0.9% 1,000 ML IV ONE (14:15)
[2017-06-22 17:18] VITALS: BMI 38.0
[2017-06-22] MEDS ORDERED: ALBUTEROL NEBULIZED 2.5 MG/3 ML INHALATION PRN (19:43)
[2017-06-22] MEDS ORDERED: DOCUSATE 100 MG CAP PO PRN (20:26)
[2017-06-22] MEDS: buPROPion 100 MG TAB PO SCH (20:30)
[2017-06-22] MEDS: ATORVASTATIN 40 MG TAB PO SCH (20:30)
[2017-06-22] MEDS: PROPAFENONE 150 MG TAB PO SCH (20:31)
[2017-06-22] MEDS: busPIRone HCl 5 MG TAB PO SCH (20:31)
[2017-06-22] MEDS: levETIRAcetam 500 MG TAB PO SCH (20:31)
[2017-06-23] MEDS: LEVOTHYROXINE 50 MCG TAB PO SCH (06:52)
[2017-06-23 07:06] LABS: Cholesterol 119 mg/dL (<200); HDL Cholesterol 45 mg/dL (40-60)
[2017-06-23] MEDS: levETIRAcetam 500 MG TAB PO SCH ×2 (07:38→21:18)
[2017-06-23] MEDS: buPROPion 100 MG TAB PO SCH ×2 (07:39→21:18)
[2017-06-23] MEDS: busPIRone HCl 5 MG TAB PO SCH ×2 (07:39→21:17)
[2017-06-23] MEDS: PROPAFENONE 150 MG TAB PO SCH ×3 (07:39→21:18)
--- NOTE | 2017-06-23 09:18 | US ---
EXAMINATION TYPE: US carotid duplex BILAT DATE OF EXAM: 06/23/2017 COMPARISON: Carotid ultrasound January 21, 2017. CTA head and neck May 25, 2017 CLINICAL HISTORY: TIA. EXAM MEASUREMENTS: RIGHT: Peak Systolic Velocity (PSV) cm/sec ----- Right CCA: 71.5 ----- Right ICA: 75.6 ----- Right ECA: 33.7 ICA/CCA ratio: 1.1 RIGHT: End Diastole cm/sec ----- Right CCA: 17.2 ----- Right ICA: 10.6 ----- Right ECA: 7.5 LEFT: Peak Systolic Velocity (PSV) cm/sec ----- Left CCA: 77.6 ----- Left ICA: 76.5 ----- Left ECA: 143.2 ICA/CCA ratio: 1.0 LEFT: End Diastole cm/sec ----- Left CCA: 15.8 ----- Left ICA: 20.6 ----- Left ECA: 13.9 VERTEBRALS (direction of flow): Right Vertebral: Antegrade Left Vertebral: Antegrade No significant stenosis seen. Grayscale images show mild eccentric plaque in the proximal right ICA shortly after its origin on yvette ge [id number] and no significant plaque at left carotid bulb. Velocity measurements and ratios in visualized portion of both internal carotid arteries is within normal limits. IMPRESSION: No hemodynamically significant stenosis is seen in either internal carotid artery. Findi ngs correlate with recent more sensitive CTA study.
--- NOTE | 2017-06-23 13:39 | CONS ---
DATE OF CONSULTATION: 06/22/2017 CHIEF COMPLAINT: Transient ischemic attack. HISTORY OF PRESENT ILLNESS: Mr. Olea is a pleasant 77-year-old male who is being evaluated by the Neurology Service per the request of Dr. Kraus for a transient ischemic attack. The patient was brought into [facility] Emergency Room after he had a transient episode of dysarthria. The symptoms lasted approximately 30 minutes and resolved spontaneously. The patient states that he has very frequent episodes consistent with transient ischemic attacks, but they never developed into strokes. The patient has history of paroxysmal atrial fibrillation and was on Pradaxa. More recently, he developed a subdural hematoma and Pradaxa was discontinued. He is currently on aspirin 81 mg daily at home. He is also on Lipitor for statin therapy. A CT scan of the brain was done on this admission which showed a resolving subdural hematoma involving the right frontal region. There was also small vessel ischemic changes and generalized atrophy. His INR is 1.1, comprehensive metabolic profile and cardiac enzymes were normal. The patient is on Keppra 500 mg bid but denies having any seizures. He believes he was placed on Keppra when he developed subdural hematoma to prevent any seizures. At the time of my evaluation, he is lying in his bed and appears to be in no acute distress. He denies any neurological symptoms at this time. PAST MEDICAL HISTORY: Atrial fibrillation, history of recent subdural hematoma , recurrent transient ischemic attacks, dyslipidemia, obstructive sleep apnea, hypothyroidism, unstable angina, history of cardiac ablation, history of adenoidectomy, pacemaker placement, tonsillectomy, eye surgery. He also has history of depression and anxiety disorder. SOCIAL HISTORY: The patient is a former smoker. He rarely drinks alcohol. He denies any drug use. FAMILY HISTORY: Positive for cancer. HOME MEDICATIONS: Reviewed in the chart. ALLERGIES: PEANUTS. REVIEW OF SYSTEMS: CONSTITUTIONAL: Negative. EYES: Negative. ENT: Negative. CARDIOVASCULAR: As mentioned above. RESPIRATORY: Negative. NEUROLOGICAL: As mentioned above. GASTROINTESTINAL: Positive for occasional heartburn. GENITOURINARY: Negative. ENDOCRINE: Positive for hypothyroidism. DERMATOLOGICAL: Negative. MUSCULOSKELETAL: ( ). PSYCHIATRIC: Positive for history of depression and anxiety disorder. PHYSICAL EXAM: Vital signs show a temperature of 97.0, pulse 53, respirations 16, blood pressure 141/81. GENERAL APPEARANCE: The patient is an obese, male who appears to be in no acute distress. HEENT: Normocephalic, atraumatic. No facial asymmetry is seen. NECK: Supple with no masses felt. CARDIOVASCULAR: Bradycardic rate with regular rhythm. EXTREMITIES: Trace edema with no clubbing seen. NEUROLOGICAL: The patient is alert, aware and oriented x3. Speech and language are normal. Strength is full in all four extremities. Sensory exam was normal to light touch in all four extremities. No dysmetria noticed. No facial asymmetry is seen on cranial nerve testing. IMPRESSION: 1. Transient ischemic attack. 2. Dysarthria, resolved. 3. History of recent transient ischemic attacks. 4. History of recent subdural hematoma. 5. Paroxysmal atrial fibrillation. RECOMMENDATIONS: The patient does appear to have suffered another transient ischemic attack with transient episode of dysarthria. The patient used to be on Pradaxa for his paroxysmal atrial fibrillation, but this was discontinued due to his recent subdural hematoma. The patient is aware of his increased risk factors for strokes. But it is not recommended at this time to restart anticoagulation. Cardiology has been consulted. According to the history, the patient did have cardiac ablation and it is unclear if he still has runs of atrial fibrillation. A cardiology consultation is pending. I will order a carotid Doppler, fasting lipid panel, EEG, and serum homocystine level. Continue neuro checks. I will continue to follow with you. Further recommendations to follow. Thank you for allowing me to participate in the care of your patient. If you have any questions, please feel free to contact me. CHRISTINA
[2017-06-23] MEDS ORDERED: LACTULOSE 20 GM/30 ML CUP PO ONE (13:45)
--- NOTE | 2017-06-23 13:45 | P.HPIM ---
History of Present Illness H&P Date: 06/23/17 Chief Complaint: Slurred speech This is a 77-year-old male, patient of Dr. Rapp. He has a known past medical history of atrial fibrillation, CVA and multiple TIAs. He also recently had a subarachnoid bleed in 05/25/2017. [facility]. He had been on Pradaxa for his A. fib. He comes into the emergency room with complaints of slurred speech. Patient reports that he was getting his nails done and DVT workers had noted that he was having some slurring of speech. EMS was called and patient was brought into the emergency room for evaluation of possible TIA. Patient did report some improvement of his slurred speech and then is reporting now that his speech is still not quite right. He also reports that he is feeling depressed due to all his chronic illnesses. He has been followed by psychiatry outpatient is on the Wellbutrin. Patient denies any weakness in one-sided of the extremities. He denies any facial droop. He denies any headaches or vision changes. Denies any chest pain or shortness of breath fevers chills or sweats. Denies a bowel movement changes or urinary symptoms. Patient had a carotid ultrasound which showed no snacking hemodynamic stenosis. Echo from January 2000 617 showedno valvular abnormality and an EF of 50-55%. Initial EKG was paced rhythm. He ate on telemetry has been having episodes of paroxysmal atrial fibrillation but heart rate has been controlled. Patient does report having a cardiac ablation in the past in the year 2012. Computed tomography scan of the brain showed no new acute intracranial hemorrhage or midline shift. It does reveal resolving right frontal subacute and chronic subdural hemorrhage. There is mild to moderate diffuse age-related cerebral atrophy redemonstrated. Neurology has been consulted as well as PT OT. Review of Systems Please referred HPI otherwise unremarkable Past Medical History Past Medical History: Atrial Fibrillation, CVA/TIA, Hyperlipidemia, Sleep Apnea/ CPAP/BIPAP, Thyroid Disorder Additional Past Medical History / Comment(s): 12-09-15 ADMITTED WITH C/O CHEST PAIN, CLINICAL IMPRESSION WAS UNSTABLE ANGINA. OTHE PAST HX INCLUDES: sleep apnea, PAST AFIB/FLUTTER HAD CARDIAC ABLATION FOR THIS. ALSO FOUND TO HAVE SICK SINUS SYNDROME,SYMPTOMATIC SINUS BRADYCARDIA AND HAD DUAL CHAMBERED PAEMEKER PLACED 2014, OSTEOPOROSIS.PER PAST MED RECORD MVP. History of Any Multi-Drug Resistant Organisms: None Reported Past Surgical History: Adenoidectomy, Heart Catheterization, Pacemaker, Tonsillectomy Additional Past Surgical History / Comment(s): left eye, EP STUDY cardiac ablation, PACEMAKER, HEART CATHS X3, HEMORROIDECTOMY, SX FOR SLEEP APNEA, MOLE REMOVED LT LEG(BENIGN) Past Anesthesia/Blood Transfusion Reactions: No Reported Reaction Type of Cardiac Device: Permanent Pacemaker Device Placement Date:: 2013 Past Psychological History: Anxiety, Depression Smoking Status: Former smoker Past Alcohol Use History: Rare Additional Past Alcohol Use History / Comment(s): SMOKED X7 YEARS 2-3 PPD QUIT 1967 Past Drug Use History: None Reported - Past Family History Sister(s) Family Medical History: Cancer Additional Family Medical History / Comment(s): BREAST CANCER Father Additional Family Medical History / Comment(s): stomach aneurysm Medications and Allergies Home Medications Medication Instructions Recorded Confirmed Type Atorvastatin [Lipitor] 40 mg PO HS 04/16/14 06/22/17 History Levothyroxine Sodium [Synthroid] 50 mcg PO DAILY 04/16/14 06/22/17 History Propafenone [Rythmol] 150 mg PO TID 04/16/14 06/22/17 History busPIRone HCL [Buspar] 15 mg PO BID 04/16/14 06/22/17 History Albuterol Inhaler [Ventolin Hfa 1 - 2 puff INHALATION RT-Q6H PRN 12/16/16 History Inhaler] Fish Oil/Dha/Epa [Fish Oil 1,200 1 cap PO BID 12/16/16 06/22/17 History mg Fish Oil] buPROPion [Wellbutrin] 100 mg PO BID 01/20/17 06/22/17 History Keppra (Unknown Dose) 1 tab PO BID 06/22/17 06/22/17 History levETIRAcetam [Keppra] 500 mg PO Q12HR 06/22/17 06/22/17 History Allergies Allergy/AdvReac Type Severity Reaction Status Date / Time peanut Allergy Anaphylaxis Verified 05/25/17 11:28 Physical Exam Vitals: Vital Signs Temp Pulse Pulse Resp BP BP Pulse Ox 06/23/17 11:45 97.0 F L 58 L 20 139/72 98 06/23/17 07:45 66 20 06/23/17 07:43 96.7 F L 66 20 137/85 98 06/23/17 04:00 97.4 F L 63 16 131/66 96 06/23/17 00:00 51 L 16 111/56 97 06/22/17 20:00 97.6 F 50 L 15 107/66 95 06/22/17 17:32 97.0 F L 53 L 16 141/81 100 06/22/17 17:29 53 L 18 06/22/17 16:31 50 L 18 143/63 97 06/22/17 15:31 50 L 18 136/67 98 06/22/17 14:54 58 L 18 143/50 99 06/22/17 14:43 97.0 F L 53 L 16 141/81 100 Intake and Output 06/22/17 06/23/17 06/23/17 22:59 06:59 14:59 Intake Total 310 Output Total 950 550 Balance -640 -550 Intake: Intake, IV Titration 150 Amount Sodium Chloride 0.9% 1, 150 000 ml @ 75 mls/hr IV . [id number] ONE Rx#:[id number] Oral 160 Output: Urine 950 550 Other: Voiding Method Urinal Urinal Urinal # Voids 1 1 Weight 126.5 kg Head normocephalic Neck supple Lungs clear to auscultation bilaterally no wheezing or crackles Heart regular rate and rhythm S1-S2, no rub or gallop Abdomen is soft nontender nondistended positive bowel sounds no hepatosplenomegaly Extremities no edema Neuro alert and orientated to 3. No slurred speech or facial droop. Hand skate hop equal bilaterally in lower extremity strength equal bilaterally Results CBC & Chem 7: 06/22/17 11:27 06/22/17 11:27 Assessment and Plan Plan: 1. Slurred speech possibly related to TIA. Neurology has been consulted. Computed tomography scan of the brain showing no acute intracranial hemorrhage or midline shift. 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 There is mild to moderate diffuse age-related cerebral atrophy. Carotid Doppler was negative for any significant hemodynamic stenosis. Echo shows EF of 50-55% with no valvular abnormality echo was completed in January 2017. Patient has been having episodes of paroxysmal atrial fibrillation which is likely contributing to his mini strokes. 2. Paroxysmal atrial fibrillation: Patient has converted to sinus rhythm. Continue with Rythmol. He is off of anticoagulation due to the subdural hemorrhage 3. Recent subdural hemorrhage in May after a fall and being on Pradaxa. pradaxa CT scan of the brain from yesterday shows a resolving right frontal subacute and chronic subdural hemorrhage 4. History of previous CVA and TIAs 5. Hypothyroidism continue Synthroid 6. Depression followed up with psychiatry outpatient. Continue Wellbutrin 7. Constipation we will start Colace and give 1 dose of lactulose GI prophylaxis Pepcid and will hold off on DVT prophylaxis SCDs will hold off on any anticoagulation due to the subdural hemorrhage Time with Patient: Greater than 30 (Time.I performed an examination of the patient and discussed their management with the physician Dental Chair Assembler. I have reviewed the Physician Dental Chair Assembler's notes and agree with the documented findings and plan of care)
--- NOTE | 2017-06-23 15:28 | P.PN ---
Subjective Principal diagnosis: patient is a pleasant 77-year-old male who is being followed by the neurology service for transient ischemic attack. Patient had transient episode of dysarthria was brought to [facility] emergency room for further evaluation. Patient reports symptoms lasted approximately 30 minutes and have resolved spontaneously. Patient does have history of paroxysmal atrial fib and was on pre-DEXA. Patient states he was recently taken off pre-DEXA due to a fall resulting in a subdural hematoma. Patient states he is on aspirin 81 mg at home. Patient also is on statin therapy. Computed tomography scan of the brain showed small vessel ischemic changes and generalized atrophy. Computed tomography scan showed resolving subdural hematoma in the right frontal region. Patient denies any seizure history but is on Keppra 500 mg twice daily in the home setting. At the time of my evaluation, patient's resting comfortably in bed and appears to be in no acute distress. Objective - Vital Signs Vital signs: Vital Signs Temp 97.0 F L 06/23/17 11:45 Pulse 58 L 06/23/17 11:45 Resp 20 06/23/17 11:45 BP 139/72 06/23/17 11:45 Pulse Ox 98 06/23/17 11:45 Intake & Output 06/22/17 06/23/17 06/23/17 18:59 06:59 18:59 Intake Total 150 160 Output Total 1500 750 Balance 150 -1340 -750 Weight 127.006 kg 126.5 kg Intake: Intake, IV Titration 150 Amount Sodium Chloride 0.9% 1, 150 000 ml @ 75 mls/hr IV . [id number] ONE Rx#:[id number] Oral 160 Output: Urine 1500 750 Other: Voiding Method Urinal Urinal # Voids 1 3 - Exam PHYSICAL EXAM: GENERAL APPEARANCE: Patient is a well-developed, male who appears to be in no acute distress. HEENT: Normocephalic, atraumatic, no facial asymmetry is seen. Neck is supple with no masses felt. CARDIOVASCULAR: Regular rate and rhythm. ABDOMEN: Nontender, nondistended. EXTREMITIES: Show no edema or clubbing. NEUROLOGICAL EXAM:patient is awake, alert, and oriented 3. Speech and language are normal. Strength is full in all 4 extremities. Sensory exam is normal to light touch in all 4 extremities. No facial asymmetry is seen on cranial nerve testing. No tremors or seizure-like activity is noted. - Labs CBC & Chem 7: 06/22/17 11:27 06/22/17 11:27 Assessment and Plan Plan: impression: 1. Transient ischemic attack 2. Dysarthria, resolved 3. History of recent transient ischemic attacks 4. History of recent subdural hematoma, resolving 5. Paroxysmal atrial fibrillation Recommendations: Patient does appear to have suffered another transient ischemic attack with transient episode of dysarthria. Patient recently had anticoagulation discontinued due to subdural hematoma. It is not recommended at this time to restart anticoagulation. Cardiology has been consulted. Patient does report having cardiac ablation in the past. Carotid Doppler was negative for any significant stenosis. Fasting lipid panel was within normal limits. EEG was done and results are pending. Serum homocystine level is pending as well. Continue neurological checks. I will continue to follow with you. Further recommendations to follow. I performed an examination of the patient and discussed the management with the CRIMINAL INVESTIGATOR CUSTOMS. I have reviewed the CRIMINAL INVESTIGATOR CUSTOMS notes and agree with the findings and plan of care.
[2017-06-23] MEDS ORDERED: NON-FORMULARY DRUG (Fish Oil/Dha/Epa [Fish Oil 1,200 Mg Fish Oil] 1 CAP) PO SCH (21:00)
[2017-06-23] MEDS: ATORVASTATIN 40 MG TAB PO SCH (21:18)
[2017-06-23] MEDS: DOCUSATE 100 MG CAP PO SCH (21:20)
[2017-06-24 06:17] LABS: Basophils # (A) 0.1 k/uL (0-0.2); Basophils % (A) 1 %; CH 32.2; CHCM 33.4; Eosinophils # (A) 0.3 k/uL (0-0.7); Eosinophils % (A) 4 %; HCT 44.8 % (39.0-53.0); HDW 2.25; Luc # (Auto) 0.22; Luc % (Auto) 3; Lymphocytes # (A) 1.8 k/uL (1.0-4.8); Lymphocytes % (A) 27 %; MCH 32.5 pg (25.0-35.0); MCHC 33.6 g/dL (31.0-37.0); MCV 96.9 fL (80.0-100.0); Mean Platelet Volume 7.5; Monocytes # (A) 0.5 k/uL (0-1.0); Monocytes % (A) 8 %; Neutrophils # (A) 3.8 k/uL (1.3-7.7); Neutrophils % (A) 57 %; RBC 4.62 m/uL (4.30-5.90); RDW 12.2 % (11.5-15.5); WBC 6.6 k/uL (3.8-10.6); WBC (Perox) 6.71
[2017-06-24 06:31] LABS: ALT 35 U/L (21-72); AST 26 U/L (17-59); Alkaline Phosphatase 114 U/L (38-126); Anion Gap 9 mmol/L; Blood Urea Nitrogen 12 mg/dL (9-20); Calcium 9.2 mg/dL (8.4-10.2); Carbon Dioxide 23 mmol/L (22-30); Chloride 108 mmol/L (98-107); Glucose 88 mg/dL (74-99); Non-African American GFR(MDRD) >60 (>60 ml/min/1.73 sqM); Potassium 4.6 mmol/L (3.5-5.1); Sodium 140 mmol/L (137-145); Total Bilirubin 1.3 mg/dL (0.2-1.3); Total Protein 6.1 g/dL (6.3-8.2)
[2017-06-24] MEDS: LEVOTHYROXINE 50 MCG TAB PO SCH (06:51)
[2017-06-24] MEDS: levETIRAcetam 500 MG TAB PO SCH (08:50)
[2017-06-24] MEDS: busPIRone HCl 5 MG TAB PO SCH (08:50)
[2017-06-24] MEDS: buPROPion 100 MG TAB PO SCH (08:51)
[2017-06-24] MEDS: PROPAFENONE 150 MG TAB PO SCH (08:51)
[2017-06-24] MEDS: DOCUSATE 100 MG CAP PO SCH (08:51)
[2017-06-24] MEDS ORDERED: FAMOTIDINE 20 MG TAB PO SCH (09:00)
[2017-06-24 09:19] VITALS: RESP 18
[2017-06-24 12:30] VITALS: BP 144/77; PULSE 55; TEMP 97.6
--- NOTE | 2017-06-24 12:30 | P.CRDCN ---
History of Present Illness Consult date: 06/24/17 Reason for Consult (text): Afib with TIA, recent brain bleed Chief complaint: slurred speech History of present illness: This is a 77-year-old gentleman who follows with Dr. VC Becerra in the office. He has a known past medical history of atrial fibrillation, CVA and multiple TIAs as well as sick sinus syndrome with prior pacemaker implantation and atrial flutter ablation [place] [address] Hinojosa. He also recently had a subarachnoid bleed in 05/25/2017 at which time his Pradaxa was discontinued. [facility] He had been on Pradaxa for his A. fib. He comes into the emergency room with complaints of slurred speech. Patient reports that he was getting his nails done and DVT workers had noted that he was having some slurring of speech. EMS was called and patient was brought into the emergency room for evaluation of possible TIA. Patient did report some improvement of his slurred speech and then is reporting now that his speech is still not quite right, describes as thick. Patient denies any weakness in one-sided of the extremities. He denies any facial droop. He denies any headaches or vision changes. Denies any chest pain or shortness of breath or palpitations. Patient had a carotid ultrasound which showed no hemodynamically significant stenosis. Echo from January 2017 showed no valvular abnormality and an EF of 50-55%. Initial EKG was paced rhythm. Computed tomography scan of the brain showed no new acute intracranial hemorrhage or midline shift. It does reveal resolving right frontal subacute and chronic subdural hemorrhage. There is mild to moderate diffuse age-related cerebral atrophy redemonstrated. Neurology has been consulted and has recommended no anticoagulation at this time. Cardiology was put on consult due to questionable episodes of paroxysmal atrial fibrillation. In reviewing the chart there is no evidence of patient having episodes of atrial fibrillation. Telemetry strips were reviewed as well as stored episodes in the telemetry room. Records obtained from the office showed that his most recent pacemaker interrogation and May 05 showed no episodes of paroxysmal atrial fibrillation or flutter. Past Medical History Past Medical History: Atrial Fibrillation, CVA/TIA, Hyperlipidemia, Sleep Apnea/ CPAP/BIPAP, Thyroid Disorder Additional Past Medical History / Comment(s): 12-09-15 ADMITTED WITH C/O CHEST PAIN, CLINICAL IMPRESSION WAS UNSTABLE ANGINA. OTHE PAST HX INCLUDES: sleep apnea, PAST AFIB/FLUTTER HAD CARDIAC ABLATION FOR THIS. ALSO FOUND TO HAVE SICK SINUS SYNDROME,SYMPTOMATIC SINUS BRADYCARDIA AND HAD DUAL CHAMBERED PAEMEKER PLACED 2013, OSTEOPOROSIS.PER PAST MED RECORD MVP. History of Any Multi-Drug Resistant Organisms: None Reported Past Surgical History: Adenoidectomy, Heart Catheterization, Pacemaker, Tonsillectomy Additional Past Surgical History / Comment(s): left eye, EP STUDY cardiac ablation, PACEMAKER, HEART CATHS X3, HEMORROIDECTOMY, SX FOR SLEEP APNEA, MOLE REMOVED LT LEG(BENIGN) Past Anesthesia/Blood Transfusion Reactions: No Reported Reaction Type of Cardiac Device: Permanent Pacemaker Device Placement Date:: 2013 Past Psychological History: Anxiety, Depression Smoking Status: Former smoker Past Alcohol Use History: Rare Additional Past Alcohol Use History / Comment(s): SMOKED X7 YEARS 2-3 PPD QUIT 1967 Past Drug Use History: None Reported - Past Family History Sister(s) Family Medical History: Cancer Additional Family Medical History / Comment(s): BREAST CANCER Father Additional Family Medical History / Comment(s): stomach aneurysm Medications and Allergies Home Medications Medication Instructions Recorded Confirmed Type Atorvastatin [Lipitor] 40 mg PO HS 04/16/14 06/22/17 History Levothyroxine Sodium [Synthroid] 50 mcg PO DAILY 04/16/14 06/22/17 History Propafenone [Rythmol] 150 mg PO TID 04/16/14 06/22/17 History busPIRone HCL [Buspar] 15 mg PO BID 04/16/14 06/22/17 History Albuterol Inhaler [Ventolin Hfa 1 - 2 puff INHALATION RT-Q6H PRN 12/16/16 History Inhaler] Fish Oil/Dha/Epa [Fish Oil 1,200 1 cap PO BID 12/16/16 06/22/17 History mg Fish Oil] buPROPion [Wellbutrin] 100 mg PO BID 01/20/17 06/22/17 History Keppra (Unknown Dose) 1 tab PO BID 06/22/17 06/22/17 History levETIRAcetam [Keppra] 500 mg PO Q12HR 06/22/17 06/22/17 History Allergies Allergy/AdvReac Type Severity Reaction Status Date / Time peanut Allergy Anaphylaxis Verified 05/25/17 11:28 Physical Exam Vitals: Vital Signs Temp Pulse Resp BP Pulse Ox 06/24/17 08:47 94 L 06/24/17 08:00 97.8 F 58 L 18 136/78 98 06/24/17 04:00 52 L 17 142/55 94 L 06/24/17 00:00 97.1 F L 51 L 16 120/66 94 L 06/23/17 20:00 96.9 F L 56 L 17 141/77 94 L 06/23/17 15:54 96.6 F L 58 L 18 128/70 95 06/23/17 15:53 58 L 20 Intake and Output 06/23/17 06/24/17 06/24/17 22:59 06:59 14:59 Intake Total 480 480 0 Output Total 300 1250 Balance 180 -770 0 Intake: Oral 480 480 0 Output: Urine 300 1250 Other: Voiding Method Toilet Toilet Toilet Urinal Urinal Urinal # Voids 1 2 Weight 126 kg PHYSICAL EXAMINATION: HEENT: Head is atraumatic, normocephalic. Pupils equal, round. Neck is supple. There is no elevated jugular venous pressure. HEART EXAMINATION: Heart sounds regular, S1 and S2 normal. No murmur or gallop heard. CHEST EXAMINATION: Lungs are clear to auscultation and precussion. No chest wall tenderness is noted on palpation or with deep breathing. ABDOMEN: Soft, nontender. Bowel sounds are heard. No organomegaly noted. EXTREMITIES: 2+ peripheral pulses with no evidence of peripheral edema and no calf tenderness noted. NEUROLOGIC patient is awake, alert and oriented x3. . Results 06/24/17 05:54 06/24/17 05:54 Cardiac Enzymes 06/24/17 Range/Units 05:54 AST 26 (17-59) U/L CBC 06/24/17 Range/Units 05:54 WBC 6.6 (3.8-10.6) k/uL RBC 4.62 (4.30-5.90) m/uL Hgb 15.0 (13.0-17.5) gm/dL Hct 44.8 (39.0-53.0) % Plt Count 203 (150-450) k/uL Comprehensive Metabolic Panel 06/24/17 Range/Units 05:54 Sodium 140 (137-145) mmol/L Potassium 4.6 (3.5-5.1) mmol/L Chloride 108 H (98-107) mmol/L Carbon Dioxide 23 (22-30) mmol/L BUN 12 (9-20) mg/dL Creatinine 1.10 (0.66-1.25) mg/dL Glucose 88 (74-99) mg/dL Calcium 9.2 (8.4-10.2) mg/dL AST 26 (17-59) U/L ALT 35 (21-72) U/L Alkaline Phosphatase 114 (38-126) U/L Total Protein 6.1 L (6.3-8.2) g/dL Albumin 3.4 L (3.5-5.0) g/dL Current Medications Generic Name Dose Route Start Last Admin Trade Name Freq PRN Reason Stop Dose Admin Albuterol Sulfate 2.5 mg 06/22/17 19:43 Ventolin Nebulized INHALATION RT-Q6H PRN Shortness Of Breath Atorvastatin Calcium 40 mg 06/22/17 21:00 06/23/17 21:18 Lipitor PO 40 mg HS EMILIE Administration Bupropion HCl 100 mg 06/22/17 21:00 06/24/17 08:51 Wellbutrin PO 100 mg BID EMILIE Administration Buspirone HCl 15 mg 06/22/17 21:00 06/24/17 08:50 Buspar PO 15 mg BID EMILIE Administration Docusate Sodium 100 mg 06/22/17 20:26 06/22/17 20:31 Colace PO 100 mg DAILY PRN Administration Constipation Docusate Sodium 100 mg 06/23/17 21:00 06/24/17 08:51 Colace PO 100 mg BID EMILIE Administration Famotidine 20 mg 06/24/17 09:00 06/24/17 08:50 Pepcid PO 20 mg DAILY EMILIE Administration Levetiracetam 500 mg 06/22/17 21:00 06/24/17 08:50 Keppra PO 500 mg Q12HR EMILIE Administration Levothyroxine Sodium 50 mcg 06/23/17 06:30 06/24/17 06:51 Synthroid PO 50 mcg DAILY@0630 EMILIE Administration Propafenone HCl 150 mg 06/22/17 22:00 06/24/17 08:51 Rythmol PO 150 mg TID EMILIE Administration Intake and Output 06/23/17 06/24/17 06/24/17 22:59 06:59 14:59 Intake Total 480 480 0 Output Total 300 1250 Balance 180 -770 0 Intake: Oral 480 480 0 Output: Urine 300 1250 Other: Voiding Method Toilet Toilet Toilet Urinal Urinal Urinal # Voids 1 2 Weight 126 kg 06/24/17 05:54 06/24/17 05:54 Assessment and Plan Plan: Assessment and plan #1 TIA #2 history of A. fib, status post radiofrequency ablation, not currently anticoagulated secondary to recent subdural hematoma #3 sick sinus syndrome, status post pacemaker implantation in 2013 #4 depression From cardiology 's perspective, continue to hold anticoagulation. Telemetry information has been reviewed with no evidence of paroxysmal atrial fibrillation. We will see the patient on an as-needed basis. He'll follow-up in the office with Dr. VC Becerra and also have pacemaker interrogation. FIELD TRAINING AGENT note has been reviewed, I agree with a documented findings and plan of care. Patient was seen and examined.
--- NOTE | 2017-06-24 12:57 | P.PN ---
Subjective Principal diagnosis: Patient is a pleasant 77-year-old male who is being followed by the neurology service for transient ischemic attack. Patient had transient episode of dysarthria was brought to [facility] emergency room for further evaluation. Patient reports symptoms lasted approximately 30 minutes and have resolved spontaneously. Patient does have history of paroxysmal atrial fib and was on pre-DEXA. Patient states he was recently taken off pre-DEXA due to a fall resulting in a subdural hematoma. Patient states he is on aspirin 81 mg at home. Patient also is on statin therapy. Computed tomography scan of the brain showed small vessel ischemic changes and generalized atrophy. Computed tomography scan showed resolving subdural hematoma in the right frontal region. Patient denies any seizure history but is on Keppra 500 mg twice daily in the home setting. At the time of my evaluation, patient's resting comfortably in bed and appears to be in no acute distress. 06/24/2017 Patient is a pleasant 77-year-old male is being followed by the neurology service for transient ischemic attack. Patient continues to report episodes of slurred speech with mild dizziness. As you recall, anticoagulation is being held due to recent subdural hematoma. Patient continues to be monitored on telemetry. Cardiology is following for possible runs of paroxysmal atrial fibrillation. So far in review, no arrhythmias have been noted. Patient will have pacemaker interrogated. At the time of my evaluation , patient sitting up in the chair at the bedside and appears to be in no acute distress. Objective - Vital Signs Vital signs: Vital Signs Temp 97.6 F 06/24/17 12:00 Pulse 55 L 06/24/17 12:00 Resp 18 06/24/17 12:00 BP 144/77 06/24/17 12:00 Pulse Ox 95 06/24/17 12:00 Intake & Output 06/23/17 06/24/17 06/24/17 18:59 06:59 18:59 Intake Total 960 0 Output Total 750 1550 Balance -750 -590 0 Weight 126 kg Intake: Oral 960 0 Output: Urine 750 1550 Other: Voiding Method Urinal Toilet Toilet Urinal Urinal # Voids 3 2 - Exam PHYSICAL EXAM: GENERAL APPEARANCE: Patient is a well-developed, male who appears to be in no acute distress. HEENT: Normocephalic, atraumatic, no facial asymmetry is seen. Neck is supple with no masses felt. CARDIOVASCULAR: Regular rate and rhythm. ABDOMEN: Nontender, nondistended. EXTREMITIES: Show no edema or clubbing. NEUROLOGICAL EXAM:patient is awake, alert, and oriented 3. Language is normal. Speech is mildly dysarthric. Strength is full in all 4 extremities. Sensory exam is normal to light touch in all 4 extremities. No facial asymmetry is seen on cranial nerve testing. No tremors or seizure-like activity is noted. - Labs CBC & Chem 7: 06/24/17 05:54 06/24/17 05:54 Labs: Abnormal Lab Results - Last 24 Hours (Table) 06/24/17 Range/Units 05:54 Chloride 108 H (98-107) mmol/L Total Protein 6.1 L (6.3-8.2) g/dL Albumin 3.4 L (3.5-5.0) g/dL Assessment and Plan Plan: impression: 1. Transient ischemic attack 2. Dysarthria 3. History of recent transient ischemic attacks 4. History of recent subdural hematoma, resolving 5. Paroxysmal atrial fibrillation Recommendations: Patient does appear to have suffered another transient ischemic attack with transient episode of dysarthria. Patient recently had anticoagulation discontinued due to subdural hematoma. It is not recommended at this time to restart anticoagulation. Cardiology has been consulted. Patient does report having cardiac ablation in the past. Serum homocystine level was normal. Carotid Doppler was negative for any significant stenosis. Fasting lipid panel was within normal limits. EEG was done and results are pending. Manager Cath Lab is down at this time and I'm unable to access EEG results. Barring any complications on the EEG, I will continue to follow with you on an as-needed basis. Continue neurological checks. Feel free to call with any questions or concerns. I performed an examination of the patient and discussed the management with the FLUE CLEANER. I have reviewed the FLUE CLEANER notes and agree with the findings and plan of care.
--- NOTE | 2017-06-24 13:34 | P.DS ---
Providers Date of admission: 06/22/17 14:15 Expected date of discharge: 06/24/17 Attending physician: Elena Kraus Consults: 06/22/17 14:15 Consult Physician Urgent Consulting Provider: Shey Buchanan Consult Reason/Comments: TIA Do you want consulting provider notified?: Yes 06/23/17 14:26 Consult Physician Routine Consulting Provider: Leandro Nieves Consult Reason/Comments: Afib with TIA and recent brain bleed Do you want consulting provider notified?: Yes Primary care physician: Marita Rick [facility] Course: Diagnoses on discharge: 1. Slurred speech possibly related to TIA. Neurology has been consulted. Computed tomography scan of the brain showing no acute intracranial hemorrhage or midline shift. 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 There is mild to moderate diffuse age-related cerebral atrophy. Carotid Doppler was negative for any significant hemodynamic stenosis. Echo shows EF of 50-55% with no valvular abnormality echo was completed in January 2017. Patient has been having episodes of paroxysmal atrial fibrillation which is likely contributing to his mini strokes. 2. Paroxysmal atrial fibrillation: Patient has converted to sinus rhythm. Continue with Rythmol. He is off of anticoagulation due to the subdural hemorrhage 3. Recent subdural hemorrhage in May after a fall and being on Pradaxa. pradaxa CT scan of the brain from yesterday shows a resolving right frontal subacute and chronic subdural hemorrhage 4. History of previous CVA and TIAs 5. Hypothyroidism continue Synthroid 6. Depression followed up with psychiatry outpatient. Continue Wellbutrin 7. Constipation we will start Colace and give 1 dose of lactulose Hospital course: This is a 77-year-old male, patient of Dr. Rapp. He has a known past medical history of atrial fibrillation, CVA and multiple TIAs. He also recently had a subarachnoid bleed in 05/25/2017. [facility] [place] [facility]. He had been on Pradaxa for his A. fib. He comes into the emergency room with complaints of slurred speech. Patient reports that he was getting his nails done and DVT workers had noted that he was having some slurring of speech. EMS was called and patient was brought into the emergency room for evaluation of possible TIA. Patient did report some improvement of his slurred speech and then is reporting now that his speech is still not quite right. He also reports that he is feeling depressed due to all his chronic illnesses. He has been followed by psychiatry outpatient is on the Wellbutrin. Patient denies any weakness in one-sided of the extremities. He denies any facial droop. He denies any headaches or vision changes. Denies any chest pain or shortness of breath fevers chills or sweats. Denies a bowel movement changes or urinary symptoms. Patient had a carotid ultrasound which showed no snacking hemodynamic stenosis. Echo from January 2000 showed no valvular abnormality and an EF of 50-55%. Initial EKG was paced rhythm. He ate on telemetry has been having episodes of paroxysmal atrial fibrillation but heart rate has been controlled. Patient does report having a cardiac ablation in the past in the year 2012. Computed tomography scan of the brain showed no new acute intracranial hemorrhage or midline shift. It does reveal resolving right frontal subacute and chronic subdural hemorrhage. There is mild to moderate diffuse age-related cerebral atrophy redemonstrated. Neurology has been consulted as well as PT OT. Patient underwent an EEG during this hospitalization that did not reveal any evidence of seizure activity He was seen by neurologist Dr. Buchanan and was cleared for discharge Patient was also seen by cardiology he was kept on telemetry monitoring, he had no recurrence of atrial fibrillation during this admission He was cleared by cardiology for discharge Recommendation were to continue to withhold anticoagulation for the time being due to subarachnoid bleed. This could be restarted in the future by his technical assoc Dr. Talbot Follow-up with primary care physician Dr. Marita Stuart in 1 week Follow-up with Dr. Saroj Talbot in 1-2 weeks Plan - Discharge Summary New Discharge Prescriptions: No Action busPIRone HCL [Buspar] 15 mg PO BID Atorvastatin [Lipitor] 40 mg PO HS Levothyroxine Sodium [Synthroid] 50 mcg PO DAILY Propafenone [Rythmol] 150 mg PO TID Fish Oil/Dha/Epa [Fish Oil 1,200 mg Fish Oil] 1 cap PO BID Albuterol Inhaler [Ventolin Hfa Inhaler] 1 - 2 puff INHALATION RT-Q6H PRN PRN Reason: Shortness Of Breath buPROPion [Wellbutrin] 100 mg PO BID Aspirin 81 mg PO DAILY #30 chew Keppra (Unknown Dose) 1 tab PO BID levETIRAcetam [Keppra] 500 mg PO Q12HR Discharge Medication List Atorvastatin [Lipitor] 40 mg PO HS 04/16/14 [History] Levothyroxine Sodium [Synthroid] 50 mcg PO DAILY 04/16/14 [History] Propafenone [Rythmol] 150 mg PO TID 04/16/14 [History] busPIRone HCL [Buspar] 15 mg PO BID 04/16/14 [History] Albuterol Inhaler [Ventolin Hfa Inhaler] 1 - 2 puff INHALATION RT-Q6H PRN [History] Fish Oil/Dha/Epa [Fish Oil 1,200 mg Fish Oil] 1 cap PO BID 12/16/16 [History] buPROPion [Wellbutrin] 100 mg PO BID 01/20/17 [History] Aspirin 81 mg PO DAILY #30 chew 01/23/17 [Rx] Keppra (Unknown Dose) 1 tab PO BID 06/22/17 [History] levETIRAcetam [Keppra] 500 mg PO Q12HR 06/22/17 [History] Follow up Appointment(s)/Referral(s): Marita Rick MD [Primary Care Provider] - 1-2 days Activity/Diet/Wound Care/Special Instructions: [facility] - [phone]
--- NOTE | 2017-06-28 06:11 | EEG ---
DATE OF SERVICE: 06/23/2017 REASON FOR TESTING: Transient ischemic attack. DESCRIPTION OF THE PROCEDURE: This EEG was performed using a 21-channel, digital electroencephalograph, following international 10-20 system. DESCRIPTION OF THE RECORDING: From the beginning of the tracing, and with the patient's eyes closed, the background rhythm was mostly consisting of 9 Hz alpha frequency in the posterior occipital leads. No obvious asymmetry is seen. Photic stimulation was performed with a minimal driving response seen. No pathological waves were elicited. Hyperventilation was not performed. Rare movement artifacts are seen. The patient remains awake throughout the tracing. No epileptiform discharges were seen. His EKG lead showed a regular rate and rhythm. INTERPRETATION: This awake EEG can be considered within normal limits. There was no asymmetry seen. No epileptiform discharges were noticed. The absence of epileptiform discharges does not rule out the diagnosis of epilepsy, therefore clinical correlation is recommended. ZORAND
== END 2017-06-24 14:43 | disposition home health service (06) | DRG 69 ==
LOC: EC 11:09 → 6SEL 14:15
PROVIDERS: ADMIT Internal Medicine; ATTEND Internal Medicine
DX: G45.9 Transient cerebral ischemic attack, unspecified (principal); I49.5 Sick sinus syndrome; S06.5X0S Traumatic subdural hemorrhage without loss of consciousness, sequela; I48.0 Paroxysmal atrial fibrillation; E03.9 Hypothyroidism, unspecified; R12 Heartburn; M81.0 Age-related osteoporosis without current pathological fracture; R47.1 Dysarthria and anarthria; R47.81 Slurred speech; G47.33 Obstructive sleep apnea (adult) (pediatric); R29.700 NIHSS score 0; E78.5 Hyperlipidemia, unspecified; K59.00 Constipation, unspecified; F41.9 Anxiety disorder, unspecified; F32.9 Major depressive disorder, single episode, unspecified; Z79.899 Other long term (current) drug therapy; Z95.0 Presence of cardiac pacemaker; Z80.3 Family history of malignant neoplasm of breast; Z86.79 Personal history of other diseases of the circulatory system; Z91.010 Allergy to peanuts; Z87.891 Personal history of nicotine dependence; Z79.82 Long term (current) use of aspirin; Z82.49 Family history of ischemic heart disease and other diseases of the circulatory system; Z86.73 Personal history of transient ischemic attack (TIA), and cerebral infarction without residual deficits; Z86.69 Personal history of other diseases of the nervous system and sense organs; W19.XXXS Unspecified fall, sequela
CPT/HCPCS: 36415; 70450; 71020; 80053; 80061; 82550; 82553; 83090; 84484; 85025; 85610; 85730; 93005; 93880; 94760; 95819; 96360; 96361; 99285

== ENCOUNTER → 2017-07-03 | Outpatient (CLI) | payer MEDICARE ==
--- NOTE | 2017-07-03 15:26 | CT ---
EXAMINATION TYPE: CT brain wo con DATE OF EXAM: 07/03/2017 COMPARISON: 06/22/2017 HISTORY: Patient has no complaints at time of study. Follow up study for known subdural hematoma. CT DLP: 1174 mGycm Automated exposure control for dose reduction was used. FINDINGS: Moderate generalized degenerative change seen in there continues to be a greater prominence along the frontal convexities which may be related to asymmetric atrophy or chronic subdural hematoma with no significant mass effect. Appears noticeably reduced in size relative to the previous exam of 7. No midline shift or mass effect. Calvarium intact. Nonspecific white matter attenuation likely in the basis of remote microvascular ischemia. IMPRESSION: DEGENERATIVE CHANGE WITH GREATER CSF PROMINENCE THE FRONTAL CONVEXITIES. THIS APPEARS LIKELY RELATED TO SMALL RESIDUAL CHRONIC SUBDURAL HEMATOMA WHICH IS NOTICEABLY IMPROVED FROM THE EXAM OF 05/25/2017. NO ACUTE HEMORRHAGE ON TODAY'S EXAM.
== END ==
LOC: RADCTMAIN 13:42
PROVIDERS: ATTEND Specialist
DX: I62.00 Nontraumatic subdural hemorrhage, unspecified (principal)
CPT/HCPCS: 70450

== ENCOUNTER → 2018-06-07 | Outpatient (CLI) | payer MEDICARE ==
--- NOTE | 2018-06-07 13:17 | SFUN ---
SLEEP CENTER FOLLOW UP NOTE DATE OF SERVICE: 06/07/2018 This 78-year-old gentleman has been followed in sleep center for treatment of obstructive sleep apnea-hypopnea syndrome. The patient successfully continuing to use his CPAP equipment. He likes his CPAP machine. He is using equipment every night for the whole night without snoring. [place] Sleepiness Scale today is 7. I checked CPAP unit. CPAP pressure is 15 cm of water. Usage is every night, 25/30 nights more than 4 hours, average 5.4 hours. Leak is 48 L/minute. Apnea-hypopnea index 5.0. The patient is using a AirFit P10 nasal pillow mask. MEDICATIONS: Synthroid, Lipitor, BuSpar, Wellbutrin, Pradaxa, Rythmol. PHYSICAL EXAMINATION: During physical exam, patient in no distress. VITAL SIGNS: BP 144/74, HR 76, RR 16, height 5 feet 11 inches, weight 280, BMI 39.0, weight is 2 pounds less than during the previous visit. Temperature 97.8, oxygen saturation room air 94%. HEENT: PERRLA, EOMI. Oropharynx low position of soft palate. NECK: Supple, no JVD. Thyroid is not palpable. LUNGS: Clear to percussion and to auscultation. Good air exchange. No wheezing or rhonchi. HEART: S1-S2 with possible extrasystole but sound regular otherwise. ABDOMEN: Obese. EXTREMITIES: Very minimal up to 1+ ankle edema. KITCHEN PORTER: Awake, alert, and oriented X3. Cranial nerves 2 to 7 intact. There is no fasciculation or atrophy. noted. No focal deficits observed. IMPRESSION: 1. Obstructive sleep apnea-hypopnea syndrome on control with CPAP at 15 cm of water. Patient demonstrated great compliance with treatment benefitting from treatment. Some leak from the mask has been documented. 2. Obesity. 3. History of atrial fibrillation, status post cardiac ablation. During present exam, sounds regular heart beats. 4. Hypothyroidism. 5. Hyperlipidemia. 6. History of depression. 7. History of anxiety. 8. History of balance problems. PLAN: 1. Chin strap. 2. Adjust head gear for nasal pillow mask. 3. Losing weight. 4. Sleep hygiene with regular time in bed for at least 8 hours. 5. Patient will continue to use his CPAP equipment every night. 6. Prescription for all necessary CPAP supplies. 7. Followup visit in 1 year or earlier if patient has any problems related to CPAP therapy. Thank you very much for allowing me to participate in management of your patient. Sincerely, Cal Mendes MD, PhD, FAASM Diplomat of [place] [employer] [place] [employer] [facility] [place] MMVINEETL / GENON: [id number] /
== END | disposition home or self-care (01) ==
LOC: SLEEP 11:22
PROVIDERS: ATTEND Internal Medicine
DX: G47.33 Obstructive sleep apnea (adult) (pediatric) (principal); E66.9 Obesity, unspecified; I48.91 Unspecified atrial fibrillation; E03.9 Hypothyroidism, unspecified; E78.5 Hyperlipidemia, unspecified; F32.9 Major depressive disorder, single episode, unspecified; F41.9 Anxiety disorder, unspecified; Z99.89 Dependence on other enabling machines and devices; Z79.899 Other long term (current) drug therapy; Z98.890 Other specified postprocedural states; Z68.39 Body mass index [BMI] 39.0-39.9, adult

== ENCOUNTER → 2019-05-30 | Outpatient (CLI) | payer MEDICARE ==
--- NOTE | 2019-05-30 11:27 | SFUN ---
SLEEP CENTER FOLLOW UP NOTE DATE OF SERVICE: 05/30/2019 This 79-year-old gentleman had been followed in sleep center for treatment of obstructive sleep apnea-hypopnea syndrome. The patient continued to use his CPAP equipment every night for the whole night. No problem related to the mask or pressure. He is getting his supplies in time. I checked his CPAP unit. CPAP pressure is 15 cm of water usage for the last month, 28 out of 30 nights more than 4 hours with average usage is 6.2 hours. Apnea-hypopnea index reading 5.4, which is acceptable. Leak is quite high 42 L/minute, but patient did not change his nasal pillow mask recently. He already received new mask. MEDICATIONS: Lipitor, BuSpar, Wellbutrin, Synthroid, Pradaxa, Rythmol. PHYSICAL EXAMINATION: During physical exam, patient in no distress. VITAL SIGNS: BP 104/52, HR 75, RR 14, height 6 feet and zero inch, weight 287, temp 97.8, oxygen saturation at room air 96%, body mass index 38.9. The patient increased his weight 7 pounds compared to the previous visit. HEENT: PERRLA, EOMI. Oropharynx low position of soft palate. NECK: Supple, no JVD. Thyroid is not palpable. LUNGS: Clear to percussion and to auscultation. Good air exchange. No wheezing or rhonchi. HEART: S1, S2 regular. No murmurs, gallops, or rubs. ABDOMEN: Obese. EXTREMITIES: No clubbing or cyanosis. TIGHT ROPE WALKER: Awake, alert, and oriented X3. Cranial nerves 2 to 7 intact. There is no fasciculation or atrophy. noted. No focal deficits observed. IMPRESSION: 1. Obstructive sleep apnea-hypopnea syndrome. Patient demonstrated great compliance with treatment benefitting from treatment. 2. Obesity. 3. History of atrial fibrillation, status post cardiac ablation. 4. Hypothyroidism. 5. Hyperlipidemia. 6. History of depression. 7. History of anxiety. 8. History of balance problems. PLAN: 1. To replace AirFit P10 nasal mask and head gear. 2. Continue to use CPAP equipment every night. 3. Losing weight. 4. Sleep hygiene with regular time in bed for at least 8 hours. 5. No driving if feeling sleepiness. 6. Followup visit in 1 year or earlier if patient has any problems related to CPAP therapy. Thank you very much for allowing me to participate in management of your patient. Sincerely, Cal Mendes MD, PhD, FAASM Diplomat of [place] [employer] [place] Narrow Gauge Operator [facility] [place] RHYS / DAVON: [id number] /
== END ==
LOC: SLEEP 10:13
PROVIDERS: ATTEND Internal Medicine
DX: G47.33 Obstructive sleep apnea (adult) (pediatric) (principal); E66.9 Obesity, unspecified; E03.9 Hypothyroidism, unspecified; E78.5 Hyperlipidemia, unspecified; F41.8 Other specified anxiety disorders; Z86.69 Personal history of other diseases of the nervous system and sense organs; Z99.89 Dependence on other enabling machines and devices; Z68.38 Body mass index [BMI] 38.0-38.9, adult; Z79.899 Other long term (current) drug therapy

== ENCOUNTER → 2019-06-05 | Outpatient (CLI) | payer MEDICARE | END | disposition home or self-care (01) | LOC: LABWHC1 09:03 | PROVIDERS: ATTEND Psychiatry & Neurology Neurology | DX: G40.209 Localization-related (focal) (partial) symptomatic epilepsy and epileptic syndromes with complex partial seizures, not intractable, without status epilepticus (principal) | CPT/HCPCS: 36415; 80177 ==

== ENCOUNTER 2019-08-29 09:05 | Emergency (ER) | payer MEDICARE ==
--- NOTE | 2019-08-29 09:52 | ED ---
General Adult HPI - General Chief complaint: Dizziness Stated complaint: Dizziness Time Seen by Provider: 08/29/19 09:11 Source: patient, EMS Mode of arrival: EMS Limitations: no limitations - History of Present Illness Initial comments: Dictation was produced using [employer] dictation software. please excuse any grammatical, word or spelling errors. Chief Complaint: 79-year-old male with past medical history of atrial fibri llation, CVA, dyslipidemia, thyroid disease presents with lightheadedness. History of Present Illness: 79-year-old male who presents with chief complaint of lightheadedness. Patient is suffering from depression. He does see a psychiatrist. He states that his depression is because he lost his several months ago. Patient was recently prescribed Cymbalta. Patient last night took 30 mg when he is prescribed 50 mg doses. Patient woke up this morning he started to feel lightheaded. Patient denies any sensation of the room spinning. Denies any ataxia. Patient denies any suicidal or homicidal ideation. He has a history of anxiety. He felt like his symptoms when he made him feel anxious. He has no other complaints at this time. The ROS documented in this emergency department record has been reviewed and confirmed by me. Those systems with pertinent positive or negative responses have been documented in the HPI. All other systems are other negative and/or noncontributory. PHYSICAL EXAM: General Impression: Alert and oriented x3, not in acute distress HEENT: Normocephalic atraumatic, extra-ocular movements intact, pupils equal and reactive to light bilaterally, mucous membranes moist. Cardiovascular: Heart regular rate and rhythm, S1&S2 audible, no murmurs, rubs or gallops Chest: Lungs clear to auscultation bilaterally, no rhonchi, no wheeze, no rales Abdomen: Bowel sounds present, abdomen soft, non-tender, non-distended, no organomegaly Musculoskeletal: Pulses present and equal in all extremities, no peripheral edema Motor: no focal deficits noted Neurological: CN II-XII grossly intact, no focal motor or sensory deficits noted Skin: Intact with no visualized rashes Psych: Normal affect and mood ED course: 79-year-old male presents with chief complaint of dizziness. Signs upon arrival are within acceptable limits. Patient is well-appearing at bedside. Laboratory evaluation obtained. Labs shows CBC unremarkable. Coag panel negative. Patient has slight elevated BUN to creatinine ratio suggesting dehydration. Initial potassium is 5.7 with slight hemolysis. Repeat potassium is 4.7. Patient given intravenous fluids. Patient clear for discharge. Tolerating by mouth. Patient is somewhat agreeable to disposition. Patient told to maintain adequate by mouth hydration. Otherwise advised follow-up with PCP upon discharge. EKG interpretation: Ventricular rate T1, sinus bradycardia, OH interval 134, QS 96, QTC 41. No OH prolongation, no QTC prolongation, no ST or T-wave changes noted. EKG compared to 06/22/2017 showing no changes. Overall, this EKG is unremarkable - Related Data Home Medications Medication Instructions Recorded Confirmed Atorvastatin [Lipitor] 40 mg PO HS 04/16/14 08/29/19 Levothyroxine Sodium [Synthroid] 50 mcg PO DAILY 04/16/14 08/29/19 Propafenone [Rythmol] 150 mg PO TID 04/16/14 08/29/19 buPROPion [Wellbutrin] 50 mg PO BID 01/20/17 08/29/19 Apixaban [Eliquis] 5 mg PO BID 08/29/19 08/29/19 DULoxetine HCL [Cymbalta] 30 mg PO DAILY 08/29/19 08/29/19 busPIRone HCL [Buspar] 30 mg PO BID 08/29/19 08/29/19 levETIRAcetam [Keppra] 750 mg PO BID 08/29/19 08/29/19 Allergies Allergy/AdvReac Type Severity Reaction Status Date / Time peanut Allergy Anaphylaxis Verified 08/29/19 09:56 Review of Systems ROS Statement: Those systems with pertinent positive or pertinent negative responses have been documented in the HPI. ROS Other: All systems not noted in ROS Statement are negative. Past Medical History Past Medical History: Atrial Fibrillation, CVA/TIA, Hyperlipidemia, Sleep Apnea/CPAP/BIPAP, Thyroid Disorder Additional Past Medical History / Comment(s): 12-09-15 ADMITTED WITH C/O CHEST PAIN, CLINICAL IMPRESSION WAS UNSTABLE ANGINA. OTHE PAST HX INCLUDES: sleep apnea, PAST AFIB/FLUTTER HAD CARDIAC ABLATION FOR THIS. ALSO FOUND TO HAVE SICK SINUS SYNDROME,SYMPTOMATIC SINUS BRADYCARDIA AND HAD DUAL CHAMBERED PAEMEKER PLACED 2013, OSTEOPOROSIS.PER PAST MED RECORD MVP. History of Any Multi-Drug Resistant Organisms: None Reported Past Surgical History: Adenoidectomy, Heart Catheterization, Pacemaker, Tonsillectomy Additional Past Surgical History / Comment(s): left eye, EP STUDY cardiac ablation, PACEMAKER, HEART CATHS X3, HEMORROIDECTOMY, SX FOR SLEEP APNEA, MOLE REMOVED LT LEG(BENIGN) Past Anesthesia/Blood Transfusion Reactions: No Reported Reaction Type of Cardiac Device: Permanent Pacemaker Device Placement Date:: 2013 Past Psychological History: Anxiety, Depression Smoking Status: Former smoker Past Alcohol Use History: Rare Additional Past Alcohol Use History / Comment(s): SMOKED X7 YEARS 2-3 PPD QUIT 1968 Past Drug Use History: None Reported - Past Family History Sister(s) Family Medical History: Cancer Additional Family Medical History / Comment(s): BREAST CANCER Father Additional Family Medical History / Comment(s): stomach aneurysm General Exam Limitations: no limitations Course Vital Signs 08/29/19 09:14 Temperature 98.1 F Pulse Rate 60 Respiratory 16 Rate Blood Pressure 132/74 O2 Sat by Pulse 98 Oximetry Medical Decision Making - Lab Data Result diagrams: 08/29/19 09:20 08/29/19 11:46 Lab Results 08/29/19 08/29/19 08/29/19 Range/Units 09:20 09:20 09:20 WBC 6.0 (3.8-10.6) k/uL RBC 4.78 (4.30-5.90) m/uL Hgb 15.2 (13.0-17.5) gm/dL Hct 46.1 (39.0-53.0) % MCV 96.4 (80.0-100.0) fL MCH 31.8 (25.0-35.0) pg MCHC 33.0 (31.0-37.0) g/dL RDW 11.8 (11.5-15.5) % Plt Count 259 (150-450) k/uL Neutrophils % 67 % Lymphocytes % 18 % Monocytes % 9 % Eosinophils % 1 % Basophils % 2 % Neutrophils # 4.0 (1.3-7.7) k/uL Lymphocytes # 1.1 (1.0-4.8) k/uL Monocytes # 0.6 (0-1.0) k/uL Eosinophils # 0.1 (0-0.7) k/uL Basophils # 0.1 (0-0.2) k/uL PT 11.3 (9.0-12.0) sec INR 1.1 (<1.2) APTT 29.7 (22.0-30.0) sec Sodium 138 (137-145) mmol/L Potassium 5.7 H (3.5-5.1) mmol/L Chloride 107 (98-107) mmol/L Carbon Dioxide 22 (22-30) mmol/L Anion Gap 9 mmol/L BUN 18 (9-20) mg/dL Creatinine 1.32 H (0.66-1.25) mg/dL Est GFR (CKD-EPI)AfAm 60 (>60 ml/min/1.73 sqM) Est GFR (CKD-EPI)NonAf 52 (>60 ml/min/1.73 sqM) Glucose 108 H (74-99) mg/dL Calcium 9.1 (8.4-10.2) mg/dL Magnesium 2.0 (1.6-2.3) mg/dL 08/29/19 Range/Units 11:46 WBC (3.8-10.6) k/uL RBC (4.30-5.90) m/uL Hgb (13.0-17.5) gm/dL Hct (39.0-53.0) % MCV (80.0-100.0) fL MCH (25.0-35.0) pg MCHC (31.0-37.0) g/dL RDW (11.5-15.5) % Plt Count (150-450) k/uL Neutrophils % % Lymphocytes % % Monocytes % % Eosinophils % % Basophils % % Neutrophils # (1.3-7.7) k/uL Lymphocytes # (1.0-4.8) k/uL Monocytes # (0-1.0) k/uL Eosinophils # (0-0.7) k/uL Basophils # (0-0.2) k/uL PT (9.0-12.0) sec INR (<1.2) APTT (22.0-30.0) sec Sodium (137-145) mmol/L Potassium 4.7 (3.5-5.1) mmol/L Chloride (98-107) mmol/L Carbon Dioxide (22-30) mmol/L Anion Gap mmol/L BUN (9-20) mg/dL Creatinine (0.66-1.25) mg/dL Est GFR (CKD-EPI)AfAm (>60 ml/min/1.73 sqM) Est GFR (CKD-EPI)NonAf (>60 ml/min/1.73 sqM) Glucose (74-99) mg/dL Calcium (8.4-10.2) mg/dL Magnesium (1.6-2.3) mg/dL Disposition Clinical Impression: Dizziness Disposition: HOME SELF-CARE Condition: Good Instructions (If sedation given, give patient instructions): Dizziness (ED) Is patient prescribed a controlled substance at d/c from ED?: No Referrals: Marita Rick MD [Primary Care Provider] - 1-2 days Time of Disposition: 12:55
[2019-08-29 10:04] LABS: Basophils # (A) 0.1 k/uL (0-0.2); Basophils % (A) 2 %; Eosinophils # (A) 0.1 k/uL (0-0.7); Eosinophils % (A) 1 %; HCT 46.1 % (39.0-53.0); HGB 15.2 gm/dL (13.0-17.5); Lymphocytes # (A) 1.1 k/uL (1.0-4.8); Lymphocytes % (A) 18 %; MCH 31.8 pg (25.0-35.0); MCV 96.4 fL (80.0-100.0); Mean Platelet Volume 8.2; Monocytes # (A) 0.6 k/uL (0-1.0); Monocytes % (A) 9 %; Neutrophils % (A) 67 %; Platelet Count 259 k/uL (150-450); RBC 4.78 m/uL (4.30-5.90); RDW 11.8 % (11.5-15.5)
[2019-08-29 10:15] LABS: Calcium 9.1 mg/dL (8.4-10.2)
[2019-08-29 10:26] LABS: INR 1.1 (<1.2); Partial Thromboplastin Time 29.7 sec (22.0-30.0); Prothrombin Time 11.3 sec (9.0-12.0)
[2019-08-29 10:28] LABS: Potassium 5.7 mmol/L (3.5-5.1)
[2019-08-29 13:34] VITALS: BP 117/59; PULSE 57; RESP 18; TEMP 98
== END 2019-08-29 13:40 | disposition home or self-care (01) ==
LOC: EC 09:05
DX: R42 Dizziness and giddiness (principal); R79.89 Other specified abnormal findings of blood chemistry; F32.9 Major depressive disorder, single episode, unspecified; I48.91 Unspecified atrial fibrillation; E78.5 Hyperlipidemia, unspecified; E07.9 Disorder of thyroid, unspecified; F41.9 Anxiety disorder, unspecified; G47.30 Sleep apnea, unspecified; Z86.73 Personal history of transient ischemic attack (TIA), and cerebral infarction without residual deficits; Z95.818 Presence of other cardiac implants and grafts; Z95.0 Presence of cardiac pacemaker; Z98.890 Other specified postprocedural states; Z87.891 Personal history of nicotine dependence; Z79.890 Hormone replacement therapy; Z79.01 Long term (current) use of anticoagulants; Z79.899 Other long term (current) drug therapy; Z91.010 Allergy to peanuts
CPT/HCPCS: 36415; 80048; 83735; 84132; 85025; 85610; 85730; 93005; 99284

== ENCOUNTER → 2019-10-03 | Outpatient (CLI) | payer MEDICARE | END | disposition home or self-care (01) | LOC: LABWHC1 09:47 | PROVIDERS: ATTEND Psychiatry & Neurology Neurology | DX: G40.209 Localization-related (focal) (partial) symptomatic epilepsy and epileptic syndromes with complex partial seizures, not intractable, without status epilepticus (principal) | CPT/HCPCS: 36415; 80177 ==

== ENCOUNTER → 2020-09-04 | Outpatient (CLI) | payer MEDICARE ==
[2020-09-04 15:24] LABS: Potassium 4.8 mmol/L (3.5-5.1)
[2020-09-04 15:56] LABS: HCT 48.5 % (39.0-53.0); HGB 15.6 gm/dL (13.0-17.5); MCH 32.1 pg (25.0-35.0); MCHC 32.1 g/dL (31.0-37.0); MCV 99.8 fL (80.0-100.0); Mean Platelet Volume 8.7; Platelet Count 239 k/uL (150-450); RBC 4.86 m/uL (4.30-5.90); RDW 12.7 % (11.5-15.5); WBC 8.1 k/uL (3.8-10.6)
== END | disposition home or self-care (01) ==
LOC: LABPAT 13:48
PROVIDERS: ATTEND Internal Medicine Cardiovascular Disease
DX: Z01.818 Encounter for other preprocedural examination (principal); G45.9 Transient cerebral ischemic attack, unspecified
CPT/HCPCS: 36415; 80051; 82565; 84520; 85027

== ENCOUNTER 2020-09-08 06:35 | Day surgery (SDC) | payer MEDICARE ==
[2020-09-04 08:04] VITALS: BMI 37.3
[~2020-09-08 06:35] MED LIST: ALPRAZolam 0.25 MG TAB PO PRN; ALPRAZolam 0.5 MG TAB PO PRN; ASPIRIN 325 MG TAB PO STA; NITROGLYCERIN SL TABS 0.4 MG TAB SUBLINGUAL PRN; SODIUM CHLORIDE 0.9% 1,000 ML in EMPTY BAG 1 BAG IV ONE
[2020-09-08 07:04] VITALS: RESP 18
[2020-09-08] MEDS ORDERED: fentaNYL (PF) 50 MCG/ML 2 ML AMP ONE (07:27)
[2020-09-08] MEDS ORDERED: LIDOCAINE 1% INJ 10MG/ML (20 ML MDV) ONE (07:27)
[2020-09-08] MEDS ORDERED: LIDOCAINE 1% INJ 10MG/ML (20 ML MDV) SQ ONE (07:39)
[2020-09-08] MEDS ORDERED: fentaNYL (PF) 50 MCG/ML 2 ML AMP IV ONE (07:39)
[2020-09-08] MEDS ORDERED: MIDAZOLAM 2 MG/2 ML VIAL IV ONE (07:39)
[2020-09-08] MEDS ORDERED: IOPAMIDOL-370 125ML BTL INJ ONE ×2 (07:55)
[2020-09-08] MEDS ORDERED: RX INFO: IV CONTRAST WAS GIVEN 1 EACH MISC MISCELLANE PRN (08:07)
[2020-09-08] MEDS ORDERED: SODIUM CHLORIDE 0.9% 1,000 ML IV SCH (08:15)
--- NOTE | 2020-09-08 09:32 | CC ---
CARDIAC CATHETERIZATION REPORT INDICATION: Abnormal stress test. This is a 80-year-old gentleman with history of atrial fibrillation, who presented to Dr. Hinojosa with symptoms of worsening fatigue and shortness of breath with minimal activity and had a stress test that showed a fixed inferior wall defect and an echocardiogram that showed hyperkinesis of the lateral wall. Due to this, he was advised to undergo cardiac catheterization and this was scheduled. The patient understood risks, benefits and alternatives. PROCEDURE NOTE: After obtaining informed consent, left heart catheterization and coronary angiogram were performed via the right femoral artery using standard Godfrey catheters. Patient tolerated the procedure well without any obvious immediate complication. A femoral angiogram was performed and decision was made for manual hemostasis. Patient received moderate conscious sedation. Total sedation time was 18 minutes. FINDINGS: 1. HEMODYNAMICS: Left ventricular end-diastolic pressure is 12-14 mm. There is no significant gradient across the aortic valve. 2. LEFT VENTRICULOGRAM: Left ventriculogram is not performed. 3. ANGIOGRAPHIC DATA. LEFT MAIN CORONARY ARTERY: It is a normal-sized vessel and is free of stenosis. It gives off LAD that shows a mild to moderate plaque in the proximal portion. Circumflex coronary artery is not seen on this injection. 1. 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 2. Right coronary artery is a small nondominant vessel and is free of significant stenosis. CONCLUSION: 1. Left dominant circulation, mild to moderate plaque involving proximal LAD. 2. Normal left circumflex coronary artery that is free of significant coronary artery disease. PLAN: Patient's management is going to be in the form of aggressive medical therapy. MMODL / IJN: [id number] /
--- NOTE | 2020-09-08 09:32 | LTR ---
DATE OF SERVICE: 09/08/2020 RE: Sae Olea Dear Marita: 1 performed cardiac catheterization on Sae Olea, a detailed catheterization note is enclosed for your records. In brief, cardiac catheterization did not reveal significant obstructive PAD and the management is going to be in the form of aggressive medical therapy. Thank you for giving us the privilege in participating in the care of this pleasant gentleman. Sincerely, MD RHYS Parrish / DAVON: [id number] /
[2020-09-08 16:20] VITALS: BP 114/76; PULSE 62
== END 2020-09-08 16:05 | disposition home or self-care (01) ==
LOC: CATHCVL 06:35
PROVIDERS: ATTEND Internal Medicine Cardiovascular Disease
DX: I25.10 Atherosclerotic heart disease of native coronary artery without angina pectoris (principal); Q24.5 Malformation of coronary vessels; R94.39 Abnormal result of other cardiovascular function study; R06.02 Shortness of breath; R53.1 Weakness; R53.83 Other fatigue; R93.1 Abnormal findings on diagnostic imaging of heart and coronary circulation; I49.5 Sick sinus syndrome; I48.19 Other persistent atrial fibrillation; I34.0 Nonrheumatic mitral (valve) insufficiency; I10 Essential (primary) hypertension; E78.2 Mixed hyperlipidemia; E66.9 Obesity, unspecified; I48.0 Paroxysmal atrial fibrillation; Z86.73 Personal history of transient ischemic attack (TIA), and cerebral infarction without residual deficits; Z68.37 Body mass index [BMI] 37.0-37.9, adult; Z86.79 Personal history of other diseases of the circulatory system; Z98.890 Other specified postprocedural states; Z95.0 Presence of cardiac pacemaker; Z72.0 Tobacco use; Z79.890 Hormone replacement therapy; Z79.899 Other long term (current) drug therapy; Z79.01 Long term (current) use of anticoagulants
CPT/HCPCS: 93458; C1769 ×2; C1894; J2250; J2001; J3010; Q9967

== ENCOUNTER 2020-10-01 07:28 | Day surgery (SDC) | payer MEDICARE ==
[2020-09-29 12:49] VITALS: BMI 37.3
[~2020-10-01 07:28] MED LIST changes: -ALPRAZolam 0.25 MG TAB PO PRN; -ALPRAZolam 0.5 MG TAB PO PRN; -ASPIRIN 325 MG TAB PO STA; -NITROGLYCERIN SL TABS 0.4 MG TAB SUBLINGUAL PRN; -SODIUM CHLORIDE 0.9% 1,000 ML in EMPTY BAG 1 BAG IV ONE; +ceFAZolin 3 GM in SODIUM CHLORIDE 0.9% 100 ML IVPB ONE
[2020-10-01] MEDS ORDERED: SODIUM CHLORIDE 0.9% 1,000 ML IV ONE ×2 (07:46→16:25)
[2020-10-01] MEDS ORDERED: ROCURONIUM 10 MG/ML (10 ML VIAL) IV ONE (11:08)
[2020-10-01] MEDS ORDERED: GLYCOPYRROLATE 0.2 MG/ML 2 ML VIAL ONE (11:08)
[2020-10-01] MEDS ORDERED: PHENYLEPHRINE-0.9% NACL SYG 1 MG/10 ML SYRINGE ONE (11:08)
[2020-10-01] MEDS ORDERED: PROTAMINE SULFATE 10 MG/ML 5 ML VIAL IV ONE (11:08)
[2020-10-01] MEDS ORDERED: HEPARIN SODIUM,PORCINE 10,000 UNIT/ML 1 ML VIAL ONE (11:08)
[2020-10-01] MEDS ORDERED: NEOSTIGMINE 1 MG/ML 10 ML VIAL ONE (11:08)
[2020-10-01] MEDS ORDERED: PROPOFOL 10 MG/ML 20 ML VIAL IV ONE (11:08)
[2020-10-01] MEDS ORDERED: FUROSEMIDE 10 MG/ML 2 ML VIAL ONE (11:08)
[2020-10-01] MEDS ORDERED: fentaNYL (PF) 50 MCG/ML 2 ML AMP ONE (11:08)
[2020-10-01] MEDS ORDERED: SUCCINYLCHOLINE CHLORIDE VIAL 200 MG/10 ML VIAL IV ONE (11:08)
[2020-10-01] MEDS ORDERED: MIDAZOLAM 2 MG/2 ML VIAL ONE (11:08)
--- NOTE | 2020-10-01 11:47 | P.HPCAR ---
History of Present Illness This is Dr. Hinojosa dictating an H/P on this patient The patient was interviewed and examined IMPRESSION / ASSESSMENT: 72 atrial male patient with symptomatically atrial fibrillation associated with significant fatigue and shortness of breath with average activities History of atrial flutter status post ablation History of sick sinus syndrome status post pacemaker implantation History of [id number] coronary artery disease in the proximal LAD, hypokinesis of the lateral wall on echo PLAN: Patient is stable today from a cardiovascular standpoint to proceed with A. fib ablation under general anesthesia He denies any fever chills cough or GI symptoms Denies any orthopnea PND chest discomfort recently no syncope recently He is on ELIQUIS HPI Patient complains of shortness of breath with activities like walking into the office from the parking lot climbing stairs. He feels very fatigued. He has underlying persistent atrial fibrillation which is rate controlled In A. fib ablation was recommended. Importance of continuing ELIQUIS was emphasized. He is taking his ELIQUIS He has history of hypertension dyslipidemia atrial flutter status post ablation ROS: No fever chills or rigors, no cough, phlegm or expectoration, no nausea, vomiting or diarrhea, no hematuria, dysuria, no musculoskeletal complaints, no strokes or seizures, no skin lesions. EXAMINATION: Afebrile 98.7F, pulse rate in the 90s, blood pressure 146/92 mmHg Breath sounds are reduced bilaterally no rhonchi no crackles Heart sounds are soft no murmurs no gallops Abdomen soft nontender Central obesity noted No lower extremity edema REVIEW OF LABS, ECG & MEDICAL DATA Medications reviewed and include atorvastatin metoprolol succinate, Synthroid and ELIQUIS Physical Exam Vitals: Vital Signs Temp Pulse Resp BP Pulse Ox 10/01/20 07:49 98.7 F 97 16 146/92 97 Intake and Output 09/30/20 10/01/20 10/01/20 22:59 06:59 14:59 Intake Total 20 Balance 20 Intake: IV 20 Other: Weight 131.6 kg Past Medical History Past Medical History: Atrial Fibrillation, CVA/TIA, Hyperlipidemia, Mitral Valve Prolapse (MVP), Musculoskeletal Disorder, Seizure Disorder, Sleep Apnea /CPAP/BIPAP, Thyroid Disorder Additional Past Medical History / Comment(s): OSTEOPOROSIS, uses CPAP, SICK SINUS SYNDROME, bulging discs, see Dr Hinojosa H & P History of Any Multi-Drug Resistant Organisms: None Reported Past Surgical History: Adenoidectomy, Cardiac Ablation, Heart Catheterization, Pacemaker, Tonsillectomy Additional Past Surgical History / Comment(s): left eye, EP STUDY, HEMORROIDECTOMY, SX FOR SLEEP APNEA, MOLE REMOVED LT LEG(BENIGN), several cardiac cath's-most recent 2019 Past Anesthesia/Blood Transfusion Reactions: No Reported Reaction Type of Cardiac Device: Permanent Pacemaker Device Placement Date:: 2013 Smoking Status: Former smoker - Past Family History Sister(s) Family Medical History: Cancer Additional Family Medical History / Comment(s): BREAST CANCER Father Additional Family Medical History / Comment(s): stomach aneurysm Physical Examination Vital Signs Temp Pulse Resp BP Pulse Ox 10/01/20 07:49 98.7 F 97 16 146/92 97 Intake and Output 09/30/20 10/01/20 10/01/20 22:59 06:59 14:59 Intake Total 20 Balance 20 Intake: IV 20 Other: Weight 131.6 kg Results Current Medications Generic Name Dose Route Start Last Admin Trade Name Freq PRN Reason Stop Dose Admin Sodium Chloride 1,000 mls @ 20 mls/hr 10/01/20 05:51 Saline 0.9% IV .Q24H EMILIE Intake and Output 09/30/20 10/01/20 10/01/20 22:59 06:59 14:59 Intake Total 20 Balance 20 Intake: IV 20 Other: Weight 131.6 kg Patient Weight 10/02/20 06:59 Weight 131.6 kg
[2020-10-01] MEDS ORDERED: LIDOCAINE 1% INJ 10MG/ML (20 ML MDV) SQ ONE (12:16)
[2020-10-01] MEDS ORDERED: HEPARIN SOD,PORK IN 0.45% NACL 25,000 UNIT in 0.45% NACL 1 250ML.BAG IV ONE (12:41)
[2020-10-01] MEDS ORDERED: HEPARIN SODIUM (1,000 UNIT/ML) 1,000 UNIT in SODIUM CHLORIDE 0.9% 1,000 ML IRRIGATION ONE ×2 (16:36→16:38)
[2020-10-01] MEDS ORDERED: IOPAMIDOL-250 100ML BTL IV ONE (17:07)
--- NOTE | 2020-10-01 17:41 | P.PRLE ---
RE: Sae Olea Dear Marita Sae underwent A. fib ablation with pulmonary vein isolation and linear ablation as well as focal ablation He has a residual epicardial atrial tachycardia in the upper into atrial septum for which is inaccessible for ablation. I did attempt and efficacy ablation but as expected it was ineffective He underwent successful cardioversion thereafter Hopefully he maintains sinus rhythm with the other successful ablations were performed today He will continue anticoagulation and his other cardiac medications Thank you for entrusting me with the care of the patient Warm regards Sincerely Dusty Hinojosa
[2020-10-01] MEDS ORDERED: ACETAMINOPHEN TAB 325 MG TAB PO PRN (17:42)
[2020-10-01] MEDS ORDERED: HYDROcodone/APAP 5-325MG 1 EACH TAB PO PRN (17:42)
--- NOTE | 2020-10-01 17:52 | P.EPPROC ---
- EP Procedure Note Electrophysiology Procedure Note: Diagnosis Atrial fibrillation, symptomatic, refractory to therapy Persistent Status post dual-chamber pacemaker implantation for sick sinus syndrome Result No left atrial appendage mass seen on intracardiac echo Pacemaker interrogation. Lead impedances is stable post ablation Successful A. fib ablation/pulmonary vein isolation of all veins using cryo- ablation Complete entrance block in all 4 veins confirmed No evidence for phrenic nerve injury Linear ablation posterior septum of the LV Linear ablation groove of the left atrium Linear ablation mitral isthmus for mitral reentry Linear ablation along the thick ridge of the left atrial appendage, between left atrial appendage and left-sided veins Ablation of focal atrial tachycardia on the mid posterior roof, successful Ablation of focal atrial tachycardia in the upper part of the upper inter-atrial septum, epicardial location, resistant to RF energy Esophageal deflection YES , left-sided esophagus Electrical cardioversion with a synchronized shock across the chest YES Successful cardioversion to atrial paced rhythm Procedure details Patient was brought to the EP lab in a fasting state. Written informed consent was obtained prior to the procedure. Procedure performed under general anesthesia After initial muscle relaxant use, muscle relaxants were not given thereafter in order to assess phrenic nerve during procedure. Patient prepped and draped as per protocol Full cryo-set up with standard preparation of the cryoablation tools done. Femoral Venous access obtained on the right and left groins Venous and arterial Sheaths placed. Diagnostic catheters for the high right atrium, phrenic nerve stimulation and pacing, His bundle, RV and coronary sinus placed Intracardiac echo catheter placed. Long sheath placed in the right atrium Left and right transseptal catheterization performed under intracardiac echo guidance. Intravenous heparin with aCT above 300 Later, catheter positioning and balloon positioning in the left atrium, under intracardiac echo guidance Diagnostic EP study with Drug infusion Coronary sinus pacing and recording Baseline measurements Tachycardia cycle length 204 ms QRS 101 ms, QT 4 and 3 ms NV interval 178 ms Atrial pacing performed from the high right atrium and the coronary sinus RV pacing Transseptal catheterization performed RA pressure 21/14/18 LA pressure 23/15/19 Transseptal catheterization performed with standard sheath. The cryoablation sheath was then placed with an over the wire exchange without any acute complications. All 4 pulmonary veins were isolated in the following sequence: Left superior followed by left inferior followed by right superior followed by right inferior The cryo-ablation balloon was placed at the os of each vein 1.5 mL of IV dye was injected to confirm an occluded vein Goal during cryoablation was to achieve complete occlusion of the pulmonary vein, achieve -30 degrees C at 30 seconds and achieve -40 degrees C at 60 seconds and a time to effect of less than 60-90 seconds, . If not the balloon was repositioned to obtain this result After completion of Cryoblation with durations from 180-240 seconds, entrance block was confirmed with the Attain circular catheter in a roving fashion around the antrum of the pulmonary veins Phrenic nerve pacing was performed from the SVC, right innominate vein area and diaphragm voltage was monitored. Diaphragmatic contractions were also monitored manually for strength of contraction. Parameter goals for each cryo freeze Complete occlusion of the appropriate vein -30 degrees C by 30 seconds -40 degrees C by 60 seconds Minimum between minus 40-55 degrees C Thaw time greater than 10 seconds Balloon visualized by intracardiac echo The esophagus was intubated. Esophageal Temperature monitoring with a CIRCA catheter formed. Esophageal deflection for hypothermia of the esophagus below 30 degrees C Left superior pulmonary vein Complete isolation, entrance block Left inferior pulmonary vein Complete isolation, entrance block Right superior pulmonary vein, during phrenic nerve pacing Complete isolation, entrance block Right inferior pulmonary vein, during phrenic nerve pacing Complete isolation, entrance block At the end of the procedure the Achieve catheter was once again used to check for entrance block Phrenic nerve stimulation was performed to confirm diaphragmatic stimulation the end of the procedure Cine fluoroscopy was performed at the very end of the procedure to confirm movement of both diaphragms with inspiration and expiration At the end of the procedure the patient was extubated Heparin was reversed Venous sheaths were removed and hemostasis assured Procedures performed (PVI - CRYO Ablation) Diagnostic EP study CS pacing and recording Left and right transseptal catheterization 3D mapping Intracardiac echocardiography Pulmonary vein isolation with transseptal and comprehensive EPS, [id number] Left atrial roof line, +[id number] Linear ablation, septum of left atrium, +[id number] Linear ablation for mitral reentry Ablation of focal atrial tachycardia in the posterior roof of the LA behind the roof line, successful Ablation of focal atrial tachycardia in the upper part of the upper inter-atrial septum, epicardial location, resistant to RF Electrical cardioversion with a synchronized shock across the chest [id number]
[2020-10-01] MEDS ORDERED: ACETAMINOPHEN IV (For NPO) 1,000 MG in EMPTY BAG 1 BAG IVPB ONE (18:15)
[2020-10-01] MEDS ORDERED: ATORVASTATIN 40 MG TAB PO SCH (21:00)
[2020-10-01] MEDS: APIXABAN 5 MG TAB PO SCH (21:14)
[2020-10-01] MEDS: buPROPion 100 MG TAB PO SCH (21:14)
[2020-10-01] MEDS: busPIRone HCl 10 MG TAB PO SCH (21:15)
[2020-10-01] MEDS: METOPROLOL SUCCINATE (ER) 50 MG TAB.ER.24H PO SCH (23:01)
[2020-10-02] MEDS: SODIUM CHLORIDE 0.9% 1,000 ML IV SCH ×2 (00:55→06:40)
[2020-10-02] MEDS: SODIUM CHLORIDE 0.9% 250 ML IV SCH ×4 (05:05→05:11)
[2020-10-02] MEDS ORDERED: LEVOTHYROXINE 50 MCG TAB PO SCH (06:30)
[2020-10-02] MEDS: APIXABAN 5 MG TAB PO SCH (08:47)
[2020-10-02] MEDS: busPIRone HCl 10 MG TAB PO SCH (08:48)
[2020-10-02] MEDS: buPROPion 100 MG TAB PO SCH (08:50)
[2020-10-02] MEDS: METOPROLOL SUCCINATE (ER) 50 MG TAB.ER.24H PO SCH (08:51)
[2020-10-02] MEDS ORDERED: DULoxetine HCL 30 MG CAPSULE.DR PO SCH (09:00)
[2020-10-02] MEDS ORDERED: COLCHICINE 0.6 MG EACH PO ONE (09:00)
[2020-10-02 09:19] VITALS: BP 108/56; PULSE 63; RESP 18; TEMP 99.1
[2020-10-02 10:53] LABS: Potassium 4.6 mmol/L (3.5-5.1)
--- NOTE | 2020-10-02 14:22 | P.DS ---
Providers Attending physician: Dusty Hinojosa [facility] Course: Patient is seen and examined resting comfortably in no acute distress. He is s/p A. fib ablation. He denies symptoms of chest pain, shortness of breath, dizziness or palpitations. He has been given one dose of colchicine 1.2 mg today and will continue 0.6 mg daily for one week. Blood pressure 108/56 heart rate 63 afebrile maintaining oxygen saturation on room air. Laboratory data reviewed, sodium 138, potassium 4.6, creatinine 1.05. Currently maintained on Toprol 50 mg twice a day, Synthroid 50 g daily, Keppra 750 mg twice a day, Cymbalta 30 mg daily, BuSpar 30 mg twice a day, atorvastatin 40 mg at bedtime and Eliquis 5 mg twice a day. EXAMINATION: Breath sounds are reduced bilaterally no rhonchi no crackles Heart sounds are soft no murmurs no gallops Abdomen soft nontender Central obesity noted No lower extremity edema. Bilateral femoral access sites clean, dry and intact with no hematoma, oozing or ecchymosis. IMPRESSION / ASSESSMENT: Symptomatic atrial fibrillation s/p successful ablation History of atrial flutter status post ablation History of sick sinus syndrome status post pacemaker implantation History of [id number] coronary artery disease in the proximal LAD, hypokinesis of the lateral wall on echo PLAN: Stable for discharge. Home medications resumed as previously ordered. Continue Eliquis. Colchicine 0.6 mg daily for 7 days. Post-ablation instructions discussed with the patient in great detail. Physical therapy consulted to evaluate the patient. He declines any home care or rehabilitation. Incentive spirometer provided to be used q1hour while awake with instructions for use. Follow up in the office with Dr. Polk in one week. Patient Condition at Discharge: Stable Plan - Discharge Summary Discharge Rx Participant: No New Discharge Prescriptions: New Colchicine [Colcrys] 0.6 mg PO DAILY #7 tablet Continue Atorvastatin [Lipitor] 40 mg PO HS Levothyroxine Sodium [Synthroid] 50 mcg PO DAILY buPROPion [Wellbutrin] 50 mg PO BID levETIRAcetam [Keppra] 750 mg PO BID busPIRone HCL [Buspar] 30 mg PO BID DULoxetine HCL [Cymbalta] 30 mg PO DAILY Apixaban [Eliquis] 5 mg PO BID Metoprolol Succinate (ER) [Toprol XL] 50 mg PO BID Discharge Medication List Atorvastatin [Lipitor] 40 mg PO HS 04/16/14 [History] Levothyroxine Sodium [Synthroid] 50 mcg PO DAILY 04/16/14 [History] buPROPion [Wellbutrin] 50 mg PO BID 01/20/17 [History] Apixaban [Eliquis] 5 mg PO BID 08/29/19 [History] DULoxetine HCL [Cymbalta] 30 mg PO DAILY 08/29/19 [History] busPIRone HCL [Buspar] 30 mg PO BID 08/29/19 [History] levETIRAcetam [Keppra] 750 mg PO BID 08/29/19 [History] Metoprolol Succinate (ER) [Toprol XL] 50 mg PO BID 09/04/20 [History] Colchicine [Colcrys] 0.6 mg PO DAILY #7 tablet 10/02/20 [Rx] Follow up Appointment(s)/Referral(s): Dusty Hinojosa MD [STAFF PHYSICIAN] - 1 Week (message left with Sowmya at Dr. Person office for follow up in one week/ post EP study/ablation/ and pacemaker check/ to call patient.) Patient Instructions/Handouts: Cardiac Ablation (DC)
== END 2020-10-02 15:55 | disposition home or self-care (01) ==
LOC: CATHEP 07:28 → 1SOBS 17:10 → CATHEP 10-02 15:55
PROVIDERS: ATTEND Internal Medicine Clinical Cardiac Electrophysiology
DX: I48.19 Other persistent atrial fibrillation (principal); I49.5 Sick sinus syndrome; Z95.0 Presence of cardiac pacemaker; Z79.01 Long term (current) use of anticoagulants; E78.5 Hyperlipidemia, unspecified; I13.0 Hypertensive heart and chronic kidney disease with heart failure and stage 1 through stage 4 chronic kidney disease, or unspecified chronic kidney disease; N18.9 Chronic kidney disease, unspecified; I50.9 Heart failure, unspecified; Z86.73 Personal history of transient ischemic attack (TIA), and cerebral infarction without residual deficits; Z87.891 Personal history of nicotine dependence; I34.1 Nonrheumatic mitral (valve) prolapse; M81.0 Age-related osteoporosis without current pathological fracture; F32.9 Major depressive disorder, single episode, unspecified; E66.01 Morbid (severe) obesity due to excess calories; Z68.39 Body mass index [BMI] 39.0-39.9, adult; G40.909 Epilepsy, unspecified, not intractable, without status epilepticus; G47.33 Obstructive sleep apnea (adult) (pediatric); Z99.89 Dependence on other enabling machines and devices; E07.9 Disorder of thyroid, unspecified; Z98.890 Other specified postprocedural states; Z97.2 Presence of dental prosthetic device (complete) (partial); Z80.3 Family history of malignant neoplasm of breast; Z82.49 Family history of ischemic heart disease and other diseases of the circulatory system; I25.10 Atherosclerotic heart disease of native coronary artery without angina pectoris; R06.09 Other forms of dyspnea; Z79.890 Hormone replacement therapy; Z79.899 Other long term (current) drug therapy
CPT/HCPCS: 97162; 97166; 85347; 92960; 93623; 93662; 93613; 93656; 93657; 80048; C1769 ×4; C1894 ×2; C1730 ×2; C1759; C1893; C1733; C1766; C1732; J2250; J0330; J2720; J1644 ×3; J1940; J2710; J0690; J2001; J3010; J0131; J2370; J2704; Q9966

== ENCOUNTER 2020-10-04 07:10 | Emergency (ER) | payer MEDICARE ==
[2020-10-04 07:23] VITALS: RESP 18
--- NOTE | 2020-10-04 07:42 | ED ---
Male Urogenital HPI - General Chief complaint: Urogenital Stated complaint: Constipation Time Seen by Provider: 10/04/20 07:13 Source: patient, EMS Mode of arrival: EMS Limitations: no limitations - History of Present Illness Initial comments: 80yo male presenting for constipation/inability to urinate after a cardiac ablation. Patient last BM was the day after surgery monday. Pt states he also has no urinated since monday evening.> 24 hours. Admits to lower abdominal pressure. Patient states that he feel distended-denies severe pain. Patient denies vomiting, nausea. Denies back pain or fevers. Patient appears nontoxic on arrival. Denies chest pain or SOB. - Related Data Home Medications Medication Instructions Recorded Confirmed Atorvastatin [Lipitor] 40 mg PO HS 04/16/14 10/01/20 Levothyroxine Sodium [Synthroid] 50 mcg PO DAILY 04/16/14 10/01/20 buPROPion [Wellbutrin] 50 mg PO BID 01/20/17 10/01/20 Apixaban [Eliquis] 5 mg PO BID 08/29/19 10/01/20 DULoxetine HCL [Cymbalta] 30 mg PO DAILY 08/29/19 10/01/20 busPIRone HCL [Buspar] 30 mg PO BID 08/29/19 10/01/20 levETIRAcetam [Keppra] 750 mg PO BID 08/29/19 10/01/20 Metoprolol Succinate (ER) [Toprol 50 mg PO BID 09/04/20 10/01/20 XL] Previous Rx's Medication Instructions Recorded Colchicine [Colcrys] 0.6 mg PO DAILY #7 tablet 10/02/20 Allergies Allergy/AdvReac Type Severity Reaction Status Date / Time peanut Allergy Anaphylaxis Verified 09/08/20 06:56 Review of Systems ROS Statement: Those systems with pertinent positive or pertinent negative responses have been documented in the HPI. ROS Other: All systems not noted in ROS Statement are negative. Past Medical History Past Medical History: Atrial Fibrillation Additional Past Medical History / Comment(s): uses CPAP, SICK SINUS SYNDROME, bulging discs, states to have ablation in w/Dr. Hinojosa History of Any Multi-Drug Resistant Organisms: None Reported Past Surgical History: Ablation Additional Past Surgical History / Comment(s): left eye surg., EP STUDY, HEART CATHS X3, HEMORROIDECTOMY, SX FOR SLEEP APNEA, MOLE REMOVED LT LEG(BENIGN) Past Anesthesia/Blood Transfusion Reactions: No Reported Reaction Type of Cardiac Device: Permanent Pacemaker Device Placement Date:: 2013 Past Psychological History: Anxiety, Depression Smoking Status: Former smoker Past Alcohol Use History: None Reported Past Drug Use History: None Reported - Past Family History Sister(s) Family Medical History: Cancer Additional Family Medical History / Comment(s): BREAST CANCER Father Additional Family Medical History / Comment(s): stomach aneurysm General Exam - General Exam Comments Initial Comments: General: The patient is awake and alert, in no distress Eye: +3 mm pupils are equal, round and reactive to light, extra-ocular movements are intact. No nystagmus. There is normal conjunctiva bilaterally. No signs of icterus. Ears, nose, mouth and throat: There are moist mucous membranes and no oral lesions. Neck: The neck is supple, there is no tenderness or JVD. Cardiovascular: There is a regular rate and rhythm. No murmur, rub or gallop is appreciated. Respiratory: Lungs are clear to auscultation, respirations are non-labored, breath sounds are equal. No wheezes, stridor, rales, or rhonchi. Gastrointestinal: Soft, non-distended, non-tender abdomen without masses or organomegaly noted. There is no rebound or guarding present. Musculoskeletal: Normal ROM, no tenderness. Strength 5/5. Sensation intact. Radial pulses equal bilaterally 2+. Neurological: A&O x 3. CN II-XII intact grossly, There are no obvious motor or sensory deficits. Coordination appears grossly intact. Speech is normal. Skin: Skin is warm and dry and no rashes or lesions are noted. Psychiatric: Cooperative, appropriate mood & affect, normal judgment. Limitations: no limitations Course Vital Signs 10/04/20 10/04/20 07:16 08:23 Temperature 97.5 F L Pulse Rate 73 62 Respiratory 18 18 Rate Blood Pressure 138/80 127/74 O2 Sat by Pulse 97 97 Oximetry Medical Decision Making - Medical Decision Making >800cc when catheterized. Recent surgery with urinary cath placed/then removed. no obstruction on KUB. large BM with enema. Patient feels better, discussed case with attending who is agreeable to discharge with urology f/u. - Lab Data Result diagrams: 10/04/20 07:55 10/04/20 07:55 Lab Results 10/04/20 10/04/20 10/04/20 Range/Units 07:55 07:55 07:55 WBC 8.8 (3.8-10.6) k/uL RBC 4.39 (4.30-5.90) m/uL Hgb 14.4 (13.0-17.5) gm/dL Hct 42.7 (39.0-53.0) % MCV 97.5 (80.0-100.0) fL MCH 32.8 (25.0-35.0) pg MCHC 33.6 (31.0-37.0) g/dL RDW 12.3 (11.5-15.5) % Plt Count 207 (150-450) k/uL MPV 8.0 Neutrophils % 72 % Lymphocytes % 14 % Monocytes % 9 % Eosinophils % 2 % Basophils % 1 % Neutrophils # 6.3 (1.3-7.7) k/uL Lymphocytes # 1.2 (1.0-4.8) k/uL Monocytes # 0.8 (0-1.0) k/uL Eosinophils # 0.2 (0-0.7) k/uL Basophils # 0.1 (0-0.2) k/uL Sodium 137 (137-145) mmol/L Potassium 4.3 (3.5-5.1) mmol/L Chloride 111 H (98-107) mmol/L Carbon Dioxide 23 (22-30) mmol/L Anion Gap 3 mmol/L BUN 19 (9-20) mg/dL Creatinine 0.97 (0.66-1.25) mg/dL Est GFR (CKD-EPI)AfAm 87 (>60 ml/min/1.73 sqM) Est GFR (CKD-EPI)NonAf 75 (>60 ml/min/1.73 sqM) Glucose 109 H (74-99) mg/dL Calcium 8.7 (8.4-10.2) mg/dL Total Bilirubin 2.5 H (0.2-1.3) mg/dL AST 56 (17-59) U/L ALT 13 (4-49) U/L Alkaline Phosphatase 115 (38-126) U/L Total Protein 6.4 (6.3-8.2) g/dL Albumin 3.4 L (3.5-5.0) g/dL Urine Color Yellow Urine Appearance Clear (Clear) Urine pH 5.5 (5.0-8.0) Ur Specific [place] 1.024 (1.001-1.035) Urine Protein Trace H (Negative) Urine Glucose (UA) Negative (Negative) Urine Ketones Negative (Negative) Urine Blood Moderate H (Negative) Urine Nitrite Negative (Negative) Urine Bilirubin Negative (Negative) Urine Urobilinogen <2.0 (<2.0) mg/dL Ur Leukocyte Esterase Negative (Negative) Urine RBC 141 H (0-5) /hpf Urine WBC 5 (0-5) /hpf Urine Bacteria Rare H (None) /hpf Urine Mucus Rare H (None) /hpf Disposition Clinical Impression: Constipation, Urinary retention Disposition: HOME SELF-CARE Condition: Good Instructions (If sedation given, give patient instructions): Constipation (DC), Urinary Retention in Men (ED), High Fiber Diet (ED) Additional Instructions: Please use medication as discussed. Please follow-up with family doctor in the next 2 days, 2-3 days follow-up wi urology for catheter removal. Please return to emergency room if the symptoms increase or worsen or for any other concerns. Is patient prescribed a controlled substance at d/c from ED?: No Referrals: Marita Rick MD [Primary Care Provider] - 1-2 days Иван Jaimes MD [STAFF PHYSICIAN] - 1-2 days Time of Disposition: 08:45
[2020-10-04 08:04] LABS: Basophils # (A) 0.1 k/uL (0-0.2); Basophils % (A) 1 %; Eosinophils # (A) 0.2 k/uL (0-0.7); Eosinophils % (A) 2 %; HCT 42.7 % (39.0-53.0); HGB 14.4 gm/dL (13.0-17.5); Lymphocytes # (A) 1.2 k/uL (1.0-4.8); Lymphocytes % (A) 14 %; MCH 32.8 pg (25.0-35.0); MCHC 33.6 g/dL (31.0-37.0); MCV 97.5 fL (80.0-100.0); Monocytes # (A) 0.8 k/uL (0-1.0); Monocytes % (A) 9 %; Neutrophils # (A) 6.3 k/uL (1.3-7.7); Neutrophils % (A) 72 %; Platelet Count 207 k/uL (150-450); RBC 4.39 m/uL (4.30-5.90); RDW 12.3 % (11.5-15.5); WBC 8.8 k/uL (3.8-10.6)
--- NOTE | 2020-10-04 08:18 | XR ---
EXAMINATION TYPE: XR KUB DATE OF EXAM: 10/04/2020 COMPARISON: NONE HISTORY: Constipation TECHNIQUE: One view abdominal series FINDINGS: The osseous structures are intact. The bowel gas pattern is nonspecific. Bowel gas pattern is nonspe cific. Arthropathy of the hips. SI joints symmetric. IMPRESSION: 1. Nonspecific abdomen. There is retained fecal debris along: But no diagnostic evidence of obstructi on.
[2020-10-04 08:37] LABS: Appearance,Urine Clear (Clear); Bacteria,Urine Rare /hpf; Bilirubin,Urine Negative (Negative); Blood,Urine Moderate (Negative); Color,Urine Yellow; Glucose,Urine (UA) Negative (Negative); Ketones,Urine Negative (Negative); Leukocyte Esterase,Urine Negative (Negative); Mucus,Urine Rare /hpf; Nitrite,Urine Negative (Negative); PH, Urine 5.5 (5.0-8.0); Protein,Urine Trace (Negative); RBC,Urine 141 /hpf (0-5); Specific Gravity,Urine 1.024 (1.001-1.035); Urobilinogen,Urine <2.0 mg/dL (<2.0); WBC,Urine 5 /hpf (0-5)
[2020-10-04 08:42] LABS: Albumin 3.4 g/dL (3.5-5.0); Calcium 8.7 mg/dL (8.4-10.2); Potassium 4.3 mmol/L (3.5-5.1); Total Bilirubin 2.5 mg/dL (0.2-1.3); Total Protein 6.4 g/dL (6.3-8.2)
[2020-10-04 10:23] VITALS: BP 116/69; PULSE 626; TEMP 97.6
== END 2020-10-04 10:24 | disposition home or self-care (01) ==
LOC: EC 07:10
DX: R33.9 Retention of urine, unspecified (principal); K59.00 Constipation, unspecified; I48.91 Unspecified atrial fibrillation; I49.5 Sick sinus syndrome; F41.9 Anxiety disorder, unspecified; F32.9 Major depressive disorder, single episode, unspecified; Z79.01 Long term (current) use of anticoagulants; Z79.899 Other long term (current) drug therapy; Z91.010 Allergy to peanuts; Z98.890 Other specified postprocedural states; Z87.891 Personal history of nicotine dependence
CPT/HCPCS: 36415; 51702; 74018; 80053; 81001; 85025; 99284

== ENCOUNTER 2020-10-23 16:02 | Inpatient (IN) | payer MEDICARE ==
--- NOTE | 2020-10-23 16:19 | ED ---
Weakness HPI - General Chief complaint: Weakness Stated complaint: weakness Time Seen by Provider: 10/23/20 16:02 Source: patient, EMS, RN notes reviewed, old records reviewed Mode of arrival: EMS Limitations: physical limitation - History of Present Illness Initial comments: Is a 80-year-old male who presents by EMS with complaints of generalized weakn ess. He progressively worse. He did have a cardiac ablation done on October 01 he was also in the emergency department on October 05 for urinary retention since that time is gotten progressively worse decreased oral intake difficulty urinating with urgency and frequency. He is found have a temperature 101.6 upon arrival here per EMS was 100.6 no cough rhinorrhea earaches sore throat. Dysuria. No abdominal pain. MD Complaint: generalized weakness, difficulty walking - Related Data Home Medications Medication Instructions Recorded Confirmed Atorvastatin [Lipitor] 40 mg PO HS 04/16/14 10/01/20 Levothyroxine Sodium [Synthroid] 50 mcg PO DAILY 04/16/14 10/01/20 buPROPion [Wellbutrin] 50 mg PO BID 01/20/17 10/01/20 Apixaban [Eliquis] 5 mg PO BID 08/29/19 10/01/20 DULoxetine HCL [Cymbalta] 30 mg PO DAILY 08/29/19 10/01/20 busPIRone HCL [Buspar] 30 mg PO BID 08/29/19 10/01/20 levETIRAcetam [Keppra] 750 mg PO BID 08/29/19 10/01/20 Metoprolol Succinate (ER) [Toprol 50 mg PO BID 09/04/20 10/01/20 XL] Previous Rx's Medication Instructions Recorded Colchicine [Colcrys] 0.6 mg PO DAILY #7 tablet 10/02/20 Allergies Allergy/AdvReac Type Severity Reaction Status Date / Time peanut Allergy Anaphylaxis Verified 10/23/20 16:13 Review of Systems ROS Statement: Those systems with pertinent positive or pertinent negative responses have been documented in the HPI. ROS Other: All systems not noted in ROS Statement are negative. Past Medical History Past Medical History: Atrial Fibrillation Additional Past Medical History / Comment(s): uses CPAP, SICK SINUS SYNDROME, bulging discs, states to have ablation in Sep. w/Dr. Hinojosa, History of Any Multi-Drug Resistant Organisms: None Reported Past Surgical History: Ablation Additional Past Surgical History / Comment(s): left eye surg., EP STUDY, HEART CATHS X3, HEMORROIDECTOMY, SX FOR SLEEP APNEA, MOLE REMOVED LT LEG(BENIGN), Past Anesthesia/Blood Transfusion Reactions: No Reported Reaction Type of Cardiac Device: Permanent Pacemaker Device Placement Date:: 2013 Past Psychological History: Anxiety, Depression Smoking Status: Former smoker Past Alcohol Use History: None Reported Past Drug Use History: None Reported - Past Family History Sister(s) Family Medical History: Cancer Additional Family Medical History / Comment(s): BREAST CANCER Father Additional Family Medical History / Comment(s): stomach aneurysm General Exam - General Exam Comments Initial Comments: This a well-developed well-nourished awake alert oriented 3 male Limitations: physical limitation General appearance: alert, in no apparent distress Head exam: Present: atraumatic, normocephalic, normal inspection Eye exam: Present: normal appearance, PERRL, EOMI. Absent: scleral icterus, conjunctival injection, periorbital swelling ENT exam: Present: mucous membranes dry Neck exam: Present: normal inspection. Absent: tenderness, meningismus, lymphadenopathy Respiratory exam: Present: normal lung sounds bilaterally. Absent: respiratory distress, wheezes, rales, rhonchi, stridor Cardiovascular Exam: Present: regular rate, normal rhythm, normal heart sounds. Absent: systolic murmur, diastolic murmur, rubs, gallop, clicks GI/Abdominal exam: Present: soft, normal bowel sounds. Absent: distended, tenderness, guarding, rebound, rigid Extremities exam: Present: normal inspection, full ROM, normal capillary refill. Absent: tenderness, pedal edema, joint swelling, calf tenderness Back exam: Present: normal inspection Neurological exam: Present: alert, oriented X3, CN II-XII intact Psychiatric exam: Present: normal affect, normal mood Skin exam: Present: warm, dry, intact, normal color. Absent: rash Course Vital Signs 10/23/20 10/23/20 10/23/20 16:09 16:15 16:30 Temperature 101.6 F H 101.6 F H 101.4 F H Pulse Rate 74 70 70 Respiratory 18 18 18 Rate Blood Pressure 122/76 127/58 132/76 O2 Sat by Pulse 94 L 99 99 Oximetry 10/23/20 10/23/20 10/23/20 16:45 17:00 17:15 Temperature 101 F H 100.7 F H 100.6 F H Pulse Rate 75 67 70 Respiratory 18 18 18 Rate Blood Pressure 124/67 117/71 122/67 O2 Sat by Pulse 100 99 100 Oximetry EKG Findings - EKG Results: EKG: interpreted by SKY[facility] (Evidence of A. fib rate 67 QRS 94 QT since QTC 390/[address]-T wave configuration inferiorly and anterolateral leads) Medical Decision Making - Medical Decision Making I did discuss findings the patient and with Dr. Castañeda did come the emergency department see the patient patient will be admitted IV antibiotics the markers for Covid 19 to be elevated however the initial test is negative. - Lab Data Result diagrams: 10/23/20 16:22 10/23/20 16:22 Lab Results 10/23/20 10/23/20 10/23/20 Range/Units 16:22 16:22 16:22 WBC 14.3 H (3.8-10.6) k/uL RBC 4.73 (4.30-5.90) m/uL Hgb 15.5 (13.0-17.5) gm/dL Hct 47.2 (39.0-53.0) % MCV 99.7 (80.0-100.0) fL MCH 32.8 (25.0-35.0) pg MCHC 32.9 (31.0-37.0) g/dL RDW 12.7 (11.5-15.5) % Plt Count 212 (150-450) k/uL MPV 8.3 Neutrophils % 86 % Lymphocytes % 5 % Monocytes % 7 % Eosinophils % 2 % Basophils % 0 % Neutrophils # 12.4 H (1.3-7.7) k/uL Lymphocytes # 0.7 L (1.0-4.8) k/uL Monocytes # 1.0 (0-1.0) k/uL Eosinophils # 0.2 (0-0.7) k/uL Basophils # 0.0 (0-0.2) k/uL PT 11.7 (9.0-12.0) sec INR 1.2 H (<1.2) APTT 28.5 (22.0-30.0) sec D-Dimer 0.90 H (<0.60) mg/L FEU Sodium (137-145) mmol/L Potassium (3.5-5.1) mmol/L Chloride (98-107) mmol/L Carbon Dioxide (22-30) mmol/L Anion Gap mmol/L BUN (9-20) mg/dL Creatinine (0.66-1.25) mg/dL Est GFR (CKD-EPI)AfAm (>60 ml/min/1.73 sqM) Est GFR (CKD-EPI)NonAf (>60 ml/min/1.73 sqM) Glucose (74-99) mg/dL POC Glucose (mg/dL) (75-99) mg/dL POC Glu Color Dipper ID Plasma Lactic Acid Eric (0.7-2.0) mmol/L Calcium (8.4-10.2) mg/dL Magnesium (1.6-2.3) mg/dL Total Bilirubin (0.2-1.3) mg/dL AST (17-59) U/L ALT (4-49) U/L Alkaline Phosphatase (38-126) U/L Lactate Dehydrogenase (313-618) U/L Creatine Kinase (55-170) U/L Troponin I (0.000-0.034) ng/mL C-Reactive Protein (<10.0) mg/L Total Protein (6.3-8.2) g/dL Albumin (3.5-5.0) g/dL Urine Color Yellow Urine Appearance Cloudy (Clear) Urine pH 6.0 (5.0-8.0) Ur Specific [place] 1.020 (1.001-1.035) Urine Protein Trace H (Negative) Urine Glucose (UA) Negative (Negative) Urine Ketones Negative (Negative) Urine Blood Small H (Negative) Urine Nitrite Negative (Negative) Urine Bilirubin Negative (Negative) Urine Urobilinogen 2.0 (<2.0) mg/dL Ur Leukocyte Esterase Large H (Negative) Urine RBC 8 H (0-5) /hpf Urine WBC 140 H (0-5) /hpf Ur Squamous Epith Cells 1 (0-4) /hpf Urine Bacteria Occasional H (None) /hpf Hyaline Casts 4 H (0-2) /lpf Urine Mucus Few H (None) /hpf Influenza Type A (PCR) (Not Detectd) Influenza Type B (PCR) (Not Detectd) RSV (PCR) (Not Detectd) SARS-CoV-2 (PCR) (Not Detectd) 10/23/20 10/23/20 10/23/20 Range/Units 16:22 16:22 16:22 WBC (3.8-10.6) k/uL RBC (4.30-5.90) m/uL Hgb (13.0-17.5) gm/dL Hct (39.0-53.0) % MCV (80.0-100.0) fL MCH (25.0-35.0) pg MCHC (31.0-37.0) g/dL RDW (11.5-15.5) % Plt Count (150-450) k/uL MPV Neutrophils % % Lymphocytes % % Monocytes % % Eosinophils % % Basophils % % Neutrophils # (1.3-7.7) k/uL Lymphocytes # (1.0-4.8) k/uL Monocytes # (0-1.0) k/uL Eosinophils # (0-0.7) k/uL Basophils # (0-0.2) k/uL PT (9.0-12.0) sec INR (<1.2) APTT (22.0-30.0) sec D-Dimer (<0.60) mg/L FEU Sodium 136 L (137-145) mmol/L Potassium 4.7 (3.5-5.1) mmol/L Chloride 107 (98-107) mmol/L Carbon Dioxide 24 (22-30) mmol/L Anion Gap 5 mmol/L BUN 17 (9-20) mg/dL Creatinine 1.10 (0.66-1.25) mg/dL Est GFR (CKD-EPI)AfAm 74 (>60 ml/min/1.73 sqM) Est GFR (CKD-EPI)NonAf 64 (>60 ml/min/1.73 sqM) Glucose 128 H (74-99) mg/dL POC Glucose (mg/dL) (75-99) mg/dL POC Glu Color Dipper ID Plasma Lactic Acid Eric 2.0 (0.7-2.0) mmol/L Calcium 9.3 (8.4-10.2) mg/dL Magnesium 1.7 (1.6-2.3) mg/dL Total Bilirubin 2.9 H (0.2-1.3) mg/dL AST 24 (17-59) U/L ALT 12 (4-49) U/L Alkaline Phosphatase 129 H (38-126) U/L Lactate Dehydrogenase 651 H (313-618) U/L Creatine Kinase 47 L (55-170) U/L Troponin I <0.012 (0.000-0.034) ng/mL C-Reactive Protein 22.8 H (<10.0) mg/L Total Protein 6.6 (6.3-8.2) g/dL Albumin 3.5 (3.5-5.0) g/dL Urine Color Urine Appearance (Clear) Urine pH (5.0-8.0) Ur Specific [place] (1.001-1.035) Urine Protein (Negative) Urine Glucose (UA) (Negative) Urine Ketones (Negative) Urine Blood (Negative) Urine Nitrite (Negative) Urine Bilirubin (Negative) Urine Urobilinogen (<2.0) mg/dL Ur Leukocyte Esterase (Negative) Urine RBC (0-5) /hpf Urine WBC (0-5) /hpf Ur Squamous Epith Cells (0-4) /hpf Urine Bacteria (None) /hpf Hyaline Casts (0-2) /lpf Urine Mucus (None) /hpf Influenza Type A (PCR) (Not Detectd) Influenza Type B (PCR) (Not Detectd) RSV (PCR) (Not Detectd) SARS-CoV-2 (PCR) (Not Detectd) 10/23/20 10/23/20 Range/Units 16:22 17:21 WBC (3.8-10.6) k/uL RBC (4.30-5.90) m/uL Hgb (13.0-17.5) gm/dL Hct (39.0-53.0) % MCV (80.0-100.0) fL MCH (25.0-35.0) pg MCHC (31.0-37.0) g/dL RDW (11.5-15.5) % Plt Count (150-450) k/uL MPV Neutrophils % % Lymphocytes % % Monocytes % % Eosinophils % % Basophils % % Neutrophils # (1.3-7.7) k/uL Lymphocytes # (1.0-4.8) k/uL Monocytes # (0-1.0) k/uL Eosinophils # (0-0.7) k/uL Basophils # (0-0.2) k/uL PT (9.0-12.0) sec INR (<1.2) APTT (22.0-30.0) sec D-Dimer (<0.60) mg/L FEU Sodium (137-145) mmol/L Potassium (3.5-5.1) mmol/L Chloride (98-107) mmol/L Carbon Dioxide (22-30) mmol/L Anion Gap mmol/L BUN (9-20) mg/dL Creatinine (0.66-1.25) mg/dL Est GFR (CKD-EPI)AfAm (>60 ml/min/1.73 sqM) Est GFR (CKD-EPI)NonAf (>60 ml/min/1.73 sqM) Glucose (74-99) mg/dL POC Glucose (mg/dL) 119 H (75-99) mg/dL POC Glu Color Dipper ID [facility], [facility] Plasma Lactic Acid Eric (0.7-2.0) mmol/L Calcium (8.4-10.2) mg/dL Magnesium (1.6-2.3) mg/dL Total Bilirubin (0.2-1.3) mg/dL AST (17-59) U/L ALT (4-49) U/L Alkaline Phosphatase (38-126) U/L Lactate Dehydrogenase (313-618) U/L Creatine Kinase (55-170) U/L Troponin I (0.000-0.034) ng/mL C-Reactive Protein (<10.0) mg/L Total Protein (6.3-8.2) g/dL Albumin (3.5-5.0) g/dL Urine Color Urine Appearance (Clear) Urine pH (5.0-8.0) Ur Specific [place] (1.001-1.035) Urine Protein (Negative) Urine Glucose (UA) (Negative) Urine Ketones (Negative) Urine Blood (Negative) Urine Nitrite (Negative) Urine Bilirubin (Negative) Urine Urobilinogen (<2.0) mg/dL Ur Leukocyte Esterase (Negative) Urine RBC (0-5) /hpf Urine WBC (0-5) /hpf Ur Squamous Epith Cells (0-4) /hpf Urine Bacteria (None) /hpf Hyaline Casts (0-2) /lpf Urine Mucus (None) /hpf Influenza Type A (PCR) Not Detected (Not Detectd) Influenza Type B (PCR) Not Detected (Not Detectd) RSV (PCR) Not Detected (Not Detectd) SARS-CoV-2 (PCR) Not Detected (Not Detectd) - Radiology Data Radiology results: report reviewed (Did review the imaging and report no evidence of PE there is however evidence of by lateral interstitial infiltrates.), image reviewed Disposition Clinical Impression: Bilateral pneumonia, Fever, Dehydration, Failure to thrive in adult Disposition: ADMITTED IP TO THIS HOSP Condition: Fair Referrals: Marita Rick MD [Primary Care Provider] - 1-2 days
[2020-10-23 16:43] LABS: Albumin 3.5 g/dL (3.5-5.0); C Reactive Protein 22.8 mg/L (<10.0); Calcium 9.3 mg/dL (8.4-10.2); Magnesium 1.7 mg/dL (1.6-2.3); Potassium 4.7 mmol/L (3.5-5.1); Total Bilirubin 2.9 mg/dL (0.2-1.3); Total Protein 6.6 g/dL (6.3-8.2)
[2020-10-23 16:50] LABS: Basophils % (A) 0 %; Eosinophils # (A) 0.2 k/uL (0-0.7); Eosinophils % (A) 2 %; HCT 47.2 % (39.0-53.0); HGB 15.5 gm/dL (13.0-17.5); Lymphocytes # (A) 0.7 k/uL (1.0-4.8); Lymphocytes % (A) 5 %; MCH 32.8 pg (25.0-35.0); MCHC 32.9 g/dL (31.0-37.0); MCV 99.7 fL (80.0-100.0); Mean Platelet Volume 8.3; Monocytes % (A) 7 %; Neutrophils # (A) 12.4 k/uL (1.3-7.7); Neutrophils % (A) 86 %; Platelet Count 212 k/uL (150-450); RBC 4.73 m/uL (4.30-5.90); RDW 12.7 % (11.5-15.5); WBC 14.3 k/uL (3.8-10.6)
[2020-10-23 16:52] LABS: INR 1.2 (<1.2); Partial Thromboplastin Time 28.5 sec (22.0-30.0); Prothrombin Time 11.7 sec (9.0-12.0)
[2020-10-23 17:04] LABS: D-Dimer 0.9 mg/L FEU (<0.60)
[2020-10-23 17:07] LABS: Appearance,Urine Cloudy (Clear); Bacteria,Urine Occasional /hpf; Bilirubin,Urine Negative (Negative); Blood,Urine Small (Negative); Color,Urine Yellow; Glucose,Urine (UA) Negative (Negative); Hyaline Casts,Urine 4 /lpf (0-2); Ketones,Urine Negative (Negative); Leukocyte Esterase,Urine Large (Negative); Mucus,Urine Few /hpf; Nitrite,Urine Negative (Negative); Protein,Urine Trace (Negative); RBC,Urine 8 /hpf (0-5); Squamous Epithelial Cell,Urine 1 /hpf (0-4); WBC,Urine 140 /hpf (0-5)
[2020-10-23 17:21] LABS: Glucose,Whole Blood 119 mg/dL (75-99)
--- NOTE | 2020-10-23 17:46 | XR ---
EXAMINATION TYPE: XR chest 2V DATE OF EXAM: 10/23/2020 COMPARISON: 06/22/2017 HISTORY: Atrial fibrillation TECHNIQUE: 2 views FINDINGS: Heart is normal. Lungs are clear of consolidation. There is left axillary pacemaker. There are chest leads. Costophrenic angles are clear. IMPRESSION: No active cardiopulmonary disease. No adverse change compared to old exam.
--- NOTE | 2020-10-23 18:26 | CT ---
EXAMINATION TYPE: CT brain wo con DATE OF EXAM: 10/23/2020 COMPARISON: 07/03/2017 HISTORY: Altered mental status. CT DLP: 1165.2 mGycm Automated exposure control for dose reduction was used. There is cerebral cortical atrophy. There is no mass effect nor midline shift. There is no sign of in tracranial hemorrhage. Calvarium is intact. There is no evidence of cerebral edema. There is normal a eration of the mastoid air cells. IMPRESSION: Cerebral atrophy. No acute intracranial abnormality. No change compared to old exam.
--- NOTE | 2020-10-23 18:35 | CT ---
EXAMINATION TYPE: CT angio chest DATE OF EXAM: 10/23/2020 COMPARISON: None HISTORY: Weakness. Elevated d-dmer. CT DLP: 780 mGycm Automated exposure control for dose reduction was used. CONTRAST: Performed with IV Contrast, patient injected with 100 mL of Isovue 370. There are 3-D post processed images. There is some interstitial infiltrate and atelectasis at the lung bases. Heart size is fairly normal. There is no pericardial effusion. There is no pleural effusion. Thoracic aorta is intact. There is no aneurysm or dissection. The ascending aorta measures 3.3 cm. Th ere are no hilar masses. There is a single 2 x 1.5 cm pretracheal lymph node. There is normal contrast opacification of the pulmonary arteries. There are no filling defects. Thoracic vertebra have normal spacing and alignment. Posterior elements are intact. There is spurring in the lower thoracic spine. The sternum is intact. IMPRESSION: No evidence of pulmonary embolism. Interstitial infiltrates and atelectasis in the lower lung bennett. No suspicious pulmonary mass. Nons pecific pretracheal lymph node..
[2020-10-23] MEDS ORDERED: cefTRIAXone IN SWFI 1,000 MG/10 ML SYRINGE IVP STA (19:22)
[2020-10-23] MEDS ORDERED: PNEUMONIA PROTOCOL UTILIZED 1 EACH MISC PO PRN (19:45)
[2020-10-23] MEDS ORDERED: AZITHROMYCIN 500 MG in SODIUM CHLORIDE 0.9% 250 ML IVPB STA (19:45)
[2020-10-23] MEDS: SODIUM CHLORIDE 0.9% 1,000 ML IV SCH (20:09)
[2020-10-23] MEDS: busPIRone HCl 10 MG TAB PO SCH (21:38)
[2020-10-23] MEDS: CLOTRIMAZOLE/BETAMETH 1-0.05% CREAM 45 GM TUBE TOPICAL SCH (21:38)
[2020-10-23] MEDS: buPROPion 100 MG TAB PO SCH (21:38)
[2020-10-23] MEDS: METOPROLOL SUCCINATE (ER) 50 MG TAB.ER.24H PO SCH (21:39)
[2020-10-23] MEDS: ATORVASTATIN 40 MG TAB PO SCH (21:39)
[2020-10-23] MEDS: APIXABAN 5 MG TAB PO SCH (21:39)
--- NOTE | 2020-10-23 21:46 | P.HPIM ---
History of Present Illness H&P Date: 10/23/20 Patient is a 80-year-old male with a PMH of Afib on Eliquis s/p ablation (Oct 05), depression, seizure disorder, hyperlipidemia, hypothyroidism, and chronic urinary retention who presented to the emergency room for weakness. The patient notes that he was at his home with 2 of his friends when he lost his footing and fell down to his knees. He felt so weak that he needed a significant amount of help from his friends to get him into a chair. The patient also notes that over the past few days he has been feeling progressively weaker throughout and is having difficulty ambulating even with his cane. He also reports mild dysuria and dribbling along with 2 episodes of urinary incontinence. He reported subjective fevers at home over the past few days though denied chest pain, shortness of breath, cough. Also denied nausea, vomiting, diarrhea, or abdominal pain. In the emergency room, laboratory evaluation was notable for WBC count of 14.3, d-dimer 0.9, total bilirubin 2.9, LDH 651, troponin less than 0.012, with CRP 22.8 and a UA consistent with UTI. Coronavirus and influenza testing were negative. Chest CTA was negative for PE with some interstitial infiltrates and atelectasis at the lung basis. CT brain was unremarkable with EKG showing Afib @ 67 bpm with TWI in leads II, III, aVF, and V3-V6. Review of Systems Pertinent positives and negatives as discussed in HPI, a complete review of systems was performed and all other systems are negative. Past Medical History Past Medical History: Atrial Fibrillation Additional Past Medical History / Comment(s): uses CPAP, SICK SINUS SYNDROME, bulging discs, states to have ablation in Sep. w/Dr. Hinojosa, History of Any Multi-Drug Resistant Organisms: None Reported Past Surgical History: Ablation Additional Past Surgical History / Comment(s): left eye surg., EP STUDY, HEART CATHS X3, HEMORROIDECTOMY, SX FOR SLEEP APNEA, MOLE REMOVED LT LEG(BENIGN), Past Anesthesia/Blood Transfusion Reactions: No Reported Reaction Type of Cardiac Device: Permanent Pacemaker Device Placement Date:: 2013 Past Psychological History: Anxiety, Depression Smoking Status: Former smoker Past Alcohol Use History: None Reported Past Drug Use History: None Reported - Past Family History Sister(s) Family Medical History: Cancer Additional Family Medical History / Comment(s): BREAST CANCER Father Additional Family Medical History / Comment(s): stomach aneurysm Medications and Allergies Home Medications Medication Instructions Recorded Confirmed Type Atorvastatin [Lipitor] 40 mg PO HS 04/16/14 10/23/20 History Levothyroxine Sodium [Synthroid] 50 mcg PO DAILY 04/16/14 10/23/20 History buPROPion [Wellbutrin] 50 mg PO BID 01/20/17 10/23/20 History Apixaban [Eliquis] 5 mg PO BID 08/29/19 10/23/20 History busPIRone HCL [Buspar] 30 mg PO BID 08/29/19 10/23/20 History levETIRAcetam [Keppra] 750 mg PO BID 08/29/19 10/23/20 History Metoprolol Succinate (ER) [Toprol 50 mg PO BID 09/04/20 10/23/20 History XL] Tamsulosin HCl [Flomax] 0.4 mg PO DAILY 10/23/20 10/23/20 History Allergies Allergy/AdvReac Type Severity Reaction Status Date / Time peanut Allergy Anaphylaxis Verified 10/23/20 20:53 Physical Exam Vitals: Vital Signs Temp Pulse Resp BP Pulse Ox 10/23/20 19:40 98.9 F 65 18 136/81 97 10/23/20 19:30 67 18 162/87 97 10/23/20 17:15 100.6 F H 70 18 122/67 100 10/23/20 17:00 100.7 F H 67 18 117/71 99 10/23/20 16:45 101 F H 75 18 124/67 100 10/23/20 16:30 101.4 F H 70 18 132/76 99 10/23/20 16:15 101.6 F H 70 18 127/58 99 10/23/20 16:09 101.6 F H 74 18 122/76 94 L Intake and Output 10/23/20 10/23/20 10/23/20 06:59 14:59 22:59 Other: Weight 124.738 kg General: non toxic, no distress, appears at stated age, obese Derm: no unusual rashes/lesions no unusual ecchymoses, warm, dry Head: atraumatic, normocephalic, symmetric Eyes: EOMI, no lid lag, anicteric sclera, pupils equal round reactive to light ENT: Nose and ears atraumatic, no thrush, no pharyngeal erythema Neck: No thyromegaly, no cervical lymphadenopathy, trachea midline, supple Mouth: no lip lesion, mucus membranes moist Cardiovascular: S1S2 reg, no murmur, positive posterior tibial pulse bilateral, no edema, capillary refill less than 2 seconds Lungs: Mild bibasilar rhonchi, no rales or wheezing, no accessory muscle use Abdominal: soft, nontender to palpation, no guarding, no appreciable organomegaly, normal bowel sounds, no suprapubic tenderness Ext: no gross muscle atrophy, muscle strength 4 out of 5 in all 4 extremities grossly, no contractures, Neuro: CN II-XI grossly intact, light touch intact all 4 extremities, finger to nose within normal limits, Psych: Alert, oriented, appropriate affect Results CBC & Chem 7: 10/23/20 16:22 10/23/20 16:22 Labs: Abnormal Lab Results - Last 24 Hours (Table) 10/23/20 10/23/20 10/23/20 Range/Units 16:22 16:22 16:22 WBC 14.3 H (3.8-10.6) k/uL Neutrophils # 12.4 H (1.3-7.7) k/uL Lymphocytes # 0.7 L (1.0-4.8) k/uL INR 1.2 H (<1.2) D-Dimer 0.90 H (<0.60) mg/L FEU Sodium (137-145) mmol/L Glucose (74-99) mg/dL POC Glucose (mg/dL) (75-99) mg/dL Total Bilirubin (0.2-1.3) mg/dL Alkaline Phosphatase (38-126) U/L Lactate Dehydrogenase (313-618) U/L Creatine Kinase (55-170) U/L C-Reactive Protein (<10.0) mg/L Urine Protein Trace H (Negative) Urine Blood Small H (Negative) Ur Leukocyte Esterase Large H (Negative) Urine RBC 8 H (0-5) /hpf Urine WBC 140 H (0-5) /hpf Urine Bacteria Occasional H (None) /hpf Hyaline Casts 4 H (0-2) /lpf Urine Mucus Few H (None) /hpf 10/23/20 10/23/20 Range/Units 16:22 17:21 WBC (3.8-10.6) k/uL Neutrophils # (1.3-7.7) k/uL Lymphocytes # (1.0-4.8) k/uL INR (<1.2) D-Dimer (<0.60) mg/L FEU Sodium 136 L (137-145) mmol/L Glucose 128 H (74-99) mg/dL POC Glucose (mg/dL) 119 H (75-99) mg/dL Total Bilirubin 2.9 H (0.2-1.3) mg/dL Alkaline Phosphatase 129 H (38-126) U/L Lactate Dehydrogenase 651 H (313-618) U/L Creatine Kinase 47 L (55-170) U/L C-Reactive Protein 22.8 H (<10.0) mg/L Urine Protein (Negative) Urine Blood (Negative) Ur Leukocyte Esterase (Negative) Urine RBC (0-5) /hpf Urine WBC (0-5) /hpf Urine Bacteria (None) /hpf Hyaline Casts (0-2) /lpf Urine Mucus (None) /hpf Assessment and Plan Plan: UTI in setting of chronic urinary retention -C/w ceftriaxone -Urology consult -Follow up urine and blood cultures Weakness and failure to thrive -Likely secondary to ongoing infection -Obtain PT consult Elevated inflammatory markers -Possibly due to ongoing UTI -Patient denying respiratory complaints at this time with SpO2 99% with 2 L nasa l cannula -If fail to improve with ceftriaxone, consider repeat coronavirus testing Chronic conditions: A. fib, hypertension, hyperlipidemia, depression, seizure disorder, hypogonadism -Continue with home meds DVT prophylaxis -Eliquis The patient is admitted with an anticipated greater than than 2 midnight stay for evaluation of UTI. CODE STATUS:Full Code Discussed with: Patient Anticipated discharge date: 2-[address]: Home A total of 40 minutes was spent on the care of this complex patient more than 50% of the time was spent in counseling and care coordination.
[2020-10-24] MEDS: SODIUM CHLORIDE 0.9% 1,000 ML IV SCH ×2 (05:58→12:39)
[2020-10-24] MEDS: LEVOTHYROXINE 50 MCG TAB PO SCH (06:38)
[2020-10-24] MEDS: buPROPion 100 MG TAB PO SCH ×2 (08:48→20:02)
[2020-10-24] MEDS: COLCHICINE 0.6 MG EACH PO SCH (08:48)
[2020-10-24] MEDS: APIXABAN 5 MG TAB PO SCH ×2 (08:49→20:02)
[2020-10-24] MEDS: DULoxetine HCL 30 MG CAPSULE.DR PO SCH (08:49)
[2020-10-24] MEDS: METOPROLOL SUCCINATE (ER) 50 MG TAB.ER.24H PO SCH ×2 (08:49→20:01)
[2020-10-24] MEDS: busPIRone HCl 10 MG TAB PO SCH ×2 (08:49→20:01)
[2020-10-24] MEDS: CLOTRIMAZOLE/BETAMETH 1-0.05% CREAM 45 GM TUBE TOPICAL SCH ×2 (08:50→20:02)
--- NOTE | 2020-10-24 10:18 | XR ---
EXAMINATION TYPE: XR chest 2V DATE OF EXAM: 10/24/2020 COMPARISON: 10/23/2020 INDICATION: Pneumonia TECHNIQUE: Frontal and lateral views of the chest are obtained. FINDINGS: The heart size is normal. The pulmonary vasculature is normal. Mild infiltrate may be at the left base. Suspicious focal consolidation is not identified.. [place] r overlies left chest. IMPRESSION: 1. Mild left lower lobe infiltrate may be present. Clinical correlation recommended.
--- NOTE | 2020-10-24 11:41 | P.PN ---
Subjective Progress Note Date: 10/24/20 Pt complains of weakness today, does not feel capable of caring for self at home. Objective - Vital Signs Vital signs: Vital Signs Temp 98.2 F 10/23/20 20:45 Pulse 59 L 10/24/20 03:47 Resp 20 10/24/20 03:47 BP 100/65 10/24/20 03:47 Pulse Ox 95 10/24/20 03:47 Intake & Output 10/23/20 10/24/20 10/24/20 18:59 06:59 18:59 Intake Total 120 Balance 120 Weight 124.738 kg 128.5 kg Intake: Oral 120 Other: Voiding Method Urinal # Voids 2 2 - Exam Gen: awake, alert, obese man, non-toxic appearing HEENT: normocephalic, atraumatic, good hearing acuity, moist mucous membranes Resp: good air exchange, breathing comfortably with no accessory muscle use CVS: good distal perfusion x 4, GI: soft, NTTP, ND : no SPT, no CVAT, hameed catheter not present MSK: no pitting edema, no clubbing Neuro: non-focal, moving all extremities Psych: cooperative, euthymic mood - Labs CBC & Chem 7: 10/23/20 16:22 10/23/20 16:22 Labs: Abnormal Lab Results - Last 24 Hours (Table) 10/23/20 10/23/20 10/23/20 Range/Units 16:22 16:22 16:22 WBC 14.3 H (3.8-10.6) k/uL Neutrophils # 12.4 H (1.3-7.7) k/uL Lymphocytes # 0.7 L (1.0-4.8) k/uL INR 1.2 H (<1.2) D-Dimer 0.90 H (<0.60) mg/L FEU Sodium (137-145) mmol/L Glucose (74-99) mg/dL POC Glucose (mg/dL) (75-99) mg/dL Total Bilirubin (0.2-1.3) mg/dL Alkaline Phosphatase (38-126) U/L Lactate Dehydrogenase (313-618) U/L Creatine Kinase (55-170) U/L C-Reactive Protein (<10.0) mg/L Urine Protein Trace H (Negative) Urine Blood Small H (Negative) Ur Leukocyte Esterase Large H (Negative) Urine RBC 8 H (0-5) /hpf Urine WBC 140 H (0-5) /hpf Urine Bacteria Occasional H (None) /hpf Hyaline Casts 4 H (0-2) /lpf Urine Mucus Few H (None) /hpf 10/23/20 10/23/20 Range/Units 16:22 17:21 WBC (3.8-10.6) k/uL Neutrophils # (1.3-7.7) k/uL Lymphocytes # (1.0-4.8) k/uL INR (<1.2) D-Dimer (<0.60) mg/L FEU Sodium 136 L (137-145) mmol/L Glucose 128 H (74-99) mg/dL POC Glucose (mg/dL) 119 H (75-99) mg/dL Total Bilirubin 2.9 H (0.2-1.3) mg/dL Alkaline Phosphatase 129 H (38-126) U/L Lactate Dehydrogenase 651 H (313-618) U/L Creatine Kinase 47 L (55-170) U/L C-Reactive Protein 22.8 H (<10.0) mg/L Urine Protein (Negative) Urine Blood (Negative) Ur Leukocyte Esterase (Negative) Urine RBC (0-5) /hpf Urine WBC (0-5) /hpf Urine Bacteria (None) /hpf Hyaline Casts (0-2) /lpf Urine Mucus (None) /hpf Microbiology - Last 24 Hours (Table) 10/23/20 16:22 Urine Culture - Preliminary Urine,Voided Assessment and Plan Assessment: 1. Complicated UTI 2. Chronic Urinary Retention 3. Generalized Weakness 4. Persistent Atrial Fibrillation, rate controlled, on eliquis 5. Atrial Flutter s/p Cardiac Ablation 6. Sick Sinus Syndrome s/p permanent pacemaker 7. History of Subdural Hematoma 8. Seizure Disorder 9. Hypertension, essential 10. Hyperlipidemia 11. Hx of TIA 12. Depression 13. Hypogonadism 14. Hypothyroidism 80 year old man with chronic urinary retention, persistent atrial fibrillation, paroxysmal atrial flutter s/p cardiac ablation, hx of SSS s/p DC-PPM, hx subdural hematoma, depression, and seizure disorder, HTN/HLD/Hx TIA, Hypot hyroidism and hypogonadism presented with generalized weakness and syncopal episode where he fell to his knees and required 2 person assistance to transport him to the hospital; he was discovered to have UTI on UA and was started on ceftriaxone, but also complained of generalized weakness since his recent PVI and linear ablation on 10/12 warranting PT/OT evaluation for consideration of SNF placement for FRANK. UTI in setting of chronic urinary retention -C/w ceftriaxone -f/u UCx, BCx -Urology consult Weakness and failure to thrive -Likely secondary to ongoing infection -Obtain PT consult Elevated inflammatory markers -Possibly due to ongoing UTI -Patient denying respiratory complaints at this time with SpO2 99% with 2 L nasal cannula -If fail to improve with ceftriaxone, consider repeat coronavirus testing Chronic conditions: A. fib, hypertension, hyperlipidemia, depression, seizure di sorder, hypogonadism -Continue with home meds DVT prophylaxis -Eliquis The patient is admitted with an anticipated greater than than 2 midnight stay for evaluation of UTI. CODE STATUS:Full Code Discussed with: Patient Anticipated discharge date: 2-[address]: Home
[2020-10-24] MEDS: TAMSULOSIN 0.4 MG CAP.ER.24H PO SCH (12:38)
[2020-10-24] MEDS ORDERED: AZITHROMYCIN 500 MG TAB PO SCH (18:00)
[2020-10-24] MEDS: ATORVASTATIN 40 MG TAB PO SCH (20:02)
[2020-10-25] MEDS: SODIUM CHLORIDE 0.9% 1,000 ML IV SCH ×2 (02:35→10:47)
[2020-10-25] MEDS: LEVOTHYROXINE 50 MCG TAB PO SCH (06:50)
[2020-10-25] MEDS: busPIRone HCl 10 MG TAB PO SCH ×2 (08:23→21:08)
[2020-10-25] MEDS: TAMSULOSIN 0.4 MG CAP.ER.24H PO SCH (08:23)
[2020-10-25] MEDS: APIXABAN 5 MG TAB PO SCH ×2 (08:23→21:07)
[2020-10-25] MEDS: DULoxetine HCL 30 MG CAPSULE.DR PO SCH (08:23)
[2020-10-25] MEDS: METOPROLOL SUCCINATE (ER) 50 MG TAB.ER.24H PO SCH ×2 (08:23→21:08)
[2020-10-25] MEDS: COLCHICINE 0.6 MG EACH PO SCH (08:25)
[2020-10-25] MEDS: buPROPion 100 MG TAB PO SCH ×2 (08:25→23:38)
[2020-10-25] MEDS: CLOTRIMAZOLE/BETAMETH 1-0.05% CREAM 45 GM TUBE TOPICAL SCH ×2 (08:26→23:40)
--- NOTE | 2020-10-25 09:08 | P.GSCN ---
History of Present Illness Consult date: 10/24/20 Reason for Consult: UTI, urinary retention Requesting physician: Sebastián Castañeda History of present illness: The patient is a 80-year-old white male who underwent cardiac ablation on 10/01/2020. He was discharged following the procedure but returned to the ER with urinary retention. He has followed up with Dr. Christianson in the office, who performed MARIANA, and he is currently taking tamsulosin. He presented to the ER yesterday with weakness and was admitted with a presumed UTI. He denies dysuria and hematuria. He does report constant urinary leakage. He is currently receiving ceftriaxone, pending the final urine culture result. He denies any known history of BPH prior to the cardiac ablation, though he has experienced urinary urgency for many years. Review of Systems - Constitutional Reports fever, Reports weakness - Genitourinary Reports as per HPI Past Medical History Past Medical History: Atrial Fibrillation Additional Past Medical History / Comment(s): uses CPAP, SICK SINUS SYNDROME, bulging discs, states to have ablation in w/Dr. Hinojosa, History of Any Multi-Drug Resistant Organisms: None Reported Past Surgical History: Ablation Additional Past Surgical History / Comment(s): left eye surg., EP STUDY, HEART CATHS X3, HEMORROIDECTOMY, SX FOR SLEEP APNEA, MOLE REMOVED LT LEG(BENIGN), Past Anesthesia/Blood Transfusion Reactions: No Reported Reaction Type of Cardiac Device: Permanent Pacemaker Device Placement Date:: 2013 Past Psychological History: Anxiety, Depression Smoking Status: Former smoker Past Alcohol Use History: None Reported Past Drug Use History: None Reported - Past Family History Sister(s) Family Medical History: Cancer Additional Family Medical History / Comment(s): BREAST CANCER Father Additional Family Medical History / Comment(s): stomach aneurysm Medications and Allergies Home Medications Medication Instructions Recorded Confirmed Type Atorvastatin [Lipitor] 40 mg PO HS 04/16/14 10/23/20 History Levothyroxine Sodium [Synthroid] 50 mcg PO DAILY 04/16/14 10/23/20 History buPROPion [Wellbutrin] 50 mg PO BID 01/20/17 10/23/20 History Apixaban [Eliquis] 5 mg PO BID 08/29/19 10/23/20 History busPIRone HCL [Buspar] 30 mg PO BID 08/29/19 10/23/20 History levETIRAcetam [Keppra] 750 mg PO BID 08/29/19 10/23/20 History Metoprolol Succinate (ER) [Toprol 50 mg PO BID 09/04/20 10/23/20 History XL] Tamsulosin HCl [Flomax] 0.4 mg PO DAILY 10/23/20 10/23/20 History Allergies Allergy/AdvReac Type Severity Reaction Status Date / Time peanut Allergy Anaphylaxis Verified 10/23/20 20:53 Surgical - Exam Vital Signs Temp Pulse Resp BP Pulse Ox 101.6 F H 74 18 122/76 94 L 10/23/20 16:09 10/23/20 16:09 10/23/20 16:09 10/23/20 16:09 10/23/20 16:09 - General well developed, well nourished, no distress - Respiratory normal respiratory effort - Abdomen Abdomen: soft, non tender, no guarding, no rigid, no rebound - Genitourinary normal penis with no external lesions, testicles non-tender - Psychiatric oriented to time, oriented to person, oriented to place, speech is normal, memory intact Results - Labs 10/23/20 16:22 10/23/20 16:22 Abnormal Lab Results - Last 24 Hours (Table) 10/23/20 10/23/20 10/23/20 Range/Units 16:22 16:22 16:22 WBC 14.3 H (3.8-10.6) k/uL Neutrophils # 12.4 H (1.3-7.7) k/uL Lymphocytes # 0.7 L (1.0-4.8) k/uL INR 1.2 H (<1.2) D-Dimer 0.90 H (<0.60) mg/L FEU Sodium (137-145) mmol/L Glucose (74-99) mg/dL POC Glucose (mg/dL) (75-99) mg/dL Total Bilirubin (0.2-1.3) mg/dL Alkaline Phosphatase (38-126) U/L Lactate Dehydrogenase (313-618) U/L Creatine Kinase (55-170) U/L C-Reactive Protein (<10.0) mg/L Urine Protein Trace H (Negative) Urine Blood Small H (Negative) Ur Leukocyte Esterase Large H (Negative) Urine RBC 8 H (0-5) /hpf Urine WBC 140 H (0-5) /hpf Urine Bacteria Occasional H (None) /hpf Hyaline Casts 4 H (0-2) /lpf Urine Mucus Few H (None) /hpf 10/23/20 10/23/20 Range/Units 16:22 17:21 WBC (3.8-10.6) k/uL Neutrophils # (1.3-7.7) k/uL Lymphocytes # (1.0-4.8) k/uL INR (<1.2) D-Dimer (<0.60) mg/L FEU Sodium 136 L (137-145) mmol/L Glucose 128 H (74-99) mg/dL POC Glucose (mg/dL) 119 H (75-99) mg/dL Total Bilirubin 2.9 H (0.2-1.3) mg/dL Alkaline Phosphatase 129 H (38-126) U/L Lactate Dehydrogenase 651 H (313-618) U/L Creatine Kinase 47 L (55-170) U/L C-Reactive Protein 22.8 H (<10.0) mg/L Urine Protein (Negative) Urine Blood (Negative) Ur Leukocyte Esterase (Negative) Urine RBC (0-5) /hpf Urine WBC (0-5) /hpf Urine Bacteria (None) /hpf Hyaline Casts (0-2) /lpf Urine Mucus (None) /hpf Microbiology - Last 24 Hours (Table) 10/23/20 16:22 Urine Culture - Preliminary Urine,Voided Diabetes panel 10/23/20 Range/Units 16:22 Sodium 136 L (137-145) mmol/L Potassium 4.7 (3.5-5.1) mmol/L Chloride 107 (98-107) mmol/L Carbon Dioxide 24 (22-30) mmol/L BUN 17 (9-20) mg/dL Creatinine 1.10 (0.66-1.25) mg/dL Glucose 128 H (74-99) mg/dL Calcium 9.3 (8.4-10.2) mg/dL AST 24 (17-59) U/L ALT 12 (4-49) U/L Alkaline Phosphatase 129 H (38-126) U/L Total Protein 6.6 (6.3-8.2) g/dL Albumin 3.5 (3.5-5.0) g/dL Calcium panel 10/23/20 Range/Units 16:22 Calcium 9.3 (8.4-10.2) mg/dL Albumin 3.5 (3.5-5.0) g/dL Pituitary panel 10/23/20 Range/Units 16:22 Sodium 136 L (137-145) mmol/L Potassium 4.7 (3.5-5.1) mmol/L Chloride 107 (98-107) mmol/L Carbon Dioxide 24 (22-30) mmol/L BUN 17 (9-20) mg/dL Creatinine 1.10 (0.66-1.25) mg/dL Glucose 128 H (74-99) mg/dL Calcium 9.3 (8.4-10.2) mg/dL Adrenal panel 10/23/20 Range/Units 16:22 Sodium 136 L (137-145) mmol/L Potassium 4.7 (3.5-5.1) mmol/L Chloride 107 (98-107) mmol/L Carbon Dioxide 24 (22-30) mmol/L BUN 17 (9-20) mg/dL Creatinine 1.10 (0.66-1.25) mg/dL Glucose 128 H (74-99) mg/dL Calcium 9.3 (8.4-10.2) mg/dL Total Bilirubin 2.9 H (0.2-1.3) mg/dL AST 24 (17-59) U/L ALT 12 (4-49) U/L Alkaline Phosphatase 129 H (38-126) U/L Total Protein 6.6 (6.3-8.2) g/dL Albumin 3.5 (3.5-5.0) g/dL Assessment and Plan (1) Urinary retention Current Visit: No Status: Acute Code(s): R33.9 - RETENTION OF URINE, UNSPECIFIED SNOMED Code(s): 814180086 (2) UTI (urinary tract infection) Current Visit: Yes Status: Acute Code(s): N39.0 - URINARY TRACT INFECTION, SITE NOT SPECIFIED SNOMED Code(s): 09779309 Plan: Continue ceftriaxone and tamsulosin. Await urine culture result. Check post- void residual, as patient's incontinence is suspicious for being of the overflow type. Will review office records. Time with Patient: Greater than 30
--- NOTE | 2020-10-25 11:42 | P.PN ---
Progress Note - Text Progress Note Date: 10/25/20 Mr. Olea is feeling better. His urinary incontinence has resolved. He denies dysuria and hematuria. He is afebrile. He continues to receive tamsulosin. His postvoid residual is 43 mL, which indicates adequate bladder emptying. The urine culture shows gram-negative bacilli. Once the culture is completed, he may be switched to an appropriate oral antibiotic. It is unclear at this time whether he will be discharged to home or a rehab facility. He will follow up with me as an outpatient in 2 weeks. Please notify me if I can be of any further assistance.
--- NOTE | 2020-10-25 12:02 | P.PN ---
Subjective Progress Note Date: 10/25/20 Patient reports significant improvement today. Pending PT evaluation. Likely dispo plan SNF vs home with home PT on 10/26 Objective - Vital Signs Vital signs: Vital Signs Temp 97.2 F L 10/25/20 11:50 Pulse 60 10/25/20 11:50 Resp 20 10/25/20 11:50 BP 102/58 10/25/20 11:50 Pulse Ox 96 10/25/20 11:50 Intake & Output 10/24/20 10/25/20 10/25/20 18:59 06:59 18:59 Intake Total 360 130 Balance 360 130 Weight 130.5 kg Intake: IV 10 Invasive Line 1 10 Oral 360 120 Other: Voiding Method Urinal Urinal Urinal Diaper Diaper # Voids 2 2 - Exam Gen: awake, alert, obese man, non-toxic appearing HEENT: normocephalic, atraumatic, good hearing acuity, moist mucous membranes Resp: good air exchange, breathing comfortably with no accessory muscle use CVS: good distal perfusion x 4, GI: soft, NTTP, ND : no SPT, no CVAT, hameed catheter not present MSK: no pitting edema, no clubbing Neuro: non-focal, moving all extremities Psych: cooperative, euthymic mood - Labs CBC & Chem 7: 10/23/20 16:22 10/23/20 16:22 Labs: Microbiology - Last 24 Hours (Table) 10/23/20 16:22 Urine Culture - Preliminary Urine,Voided Gram Neg Bacilli 10/23/20 16:22 Blood Culture - Preliminary Blood No Growth after 24 hours 10/23/20 16:22 Blood Culture - Preliminary Blood No Growth after 24 hours Assessment and Plan Assessment: 1. Complicated UTI 2. Chronic Urinary Retention 3. Generalized Weakness 4. Persistent Atrial Fibrillation, rate controlled, on eliquis 5. Atrial Flutter s/p Cardiac Ablation 6. Sick Sinus Syndrome s/p permanent pacemaker 7. History of Subdural Hematoma 8. Seizure Disorder 9. Hypertension, essential 10. Hyperlipidemia 11. Hx of TIA 12. Depression 13. Hypogonadism 14. Hypothyroidism 80 year old man with chronic urinary retention, persistent atrial fibrillation, paroxysmal atrial flutter s/p cardiac ablation, hx of SSS s/p DC-PPM, hx ruggiero bdural hematoma, depression, and seizure disorder, HTN/HLD/Hx TIA, Hypothyroidism and hypogonadism presented with generalized weakness and syncopal episode where he fell to his knees and required 2 person assistance to transport him to the hospital; he was discovered to have UTI on UA and was started on ceftriaxone, but also complained of generalized weakness since his recent PVI and linear ablation on 10/12 warranting PT/OT evaluation for consideration of SNF placement for FRANK. UTI in setting of chronic urinary retention -C/w ceftriaxone -f/u UCx, BCx -Urology consult Weakness and failure to thrive -Likely secondary to ongoing infection -Obtain PT consult Elevated inflammatory markers -Possibly due to ongoing UTI -Patient denying respiratory complaints at this time with SpO2 99% with 2 L nasal cannula -If fail to improve with ceftriaxone, consider repeat coronavirus testing Chronic conditions: A. fib, hypertension, hyperlipidemia, depression, seizure disorder, hypogonadism -Continue with home meds DVT prophylaxis -Eliquis The patient is admitted with an anticipated greater than than 2 midnight stay for evaluation of UTI. CODE STATUS:Full Code Discussed with: Patient Anticipated discharge date: 2-[address]: Home
[2020-10-25] MEDS: ATORVASTATIN 40 MG TAB PO SCH (21:07)
[2020-10-26] MEDS: LEVOTHYROXINE 50 MCG TAB PO SCH (07:04)
[2020-10-26] MEDS: DULoxetine HCL 30 MG CAPSULE.DR PO SCH (08:25)
[2020-10-26] MEDS: TAMSULOSIN 0.4 MG CAP.ER.24H PO SCH (08:25)
[2020-10-26] MEDS: COLCHICINE 0.6 MG EACH PO SCH (08:25)
[2020-10-26] MEDS: METOPROLOL SUCCINATE (ER) 50 MG TAB.ER.24H PO SCH ×2 (08:25→21:32)
[2020-10-26] MEDS: APIXABAN 5 MG TAB PO SCH ×2 (08:25→21:32)
[2020-10-26] MEDS: buPROPion 100 MG TAB PO SCH ×2 (08:25→23:27)
[2020-10-26] MEDS: busPIRone HCl 10 MG TAB PO SCH ×2 (08:25→21:32)
[2020-10-26] MEDS: SODIUM CHLORIDE 0.9% 1,000 ML IV SCH ×3 (08:26→15:01)
[2020-10-26] MEDS: CLOTRIMAZOLE/BETAMETH 1-0.05% CREAM 45 GM TUBE TOPICAL SCH ×2 (08:38→23:27)
--- NOTE | 2020-10-26 16:40 | P.PN ---
Subjective Progress Note Date: 10/26/20 Patient is doing well today. He was getting up with physical therapy when I saw him. He does not have any complaints. No acute events overnight reported by nursing staff. Objective - Vital Signs Vital signs: Vital Signs Temp 98.2 F 10/26/20 15:24 Pulse 60 10/26/20 15:24 Resp 16 10/26/20 15:24 BP 114/65 10/26/20 15:24 Pulse Ox 97 10/26/20 15:24 Intake & Output 10/25/20 10/26/20 10/26/20 18:59 06:59 18:59 Intake Total 1410 20 1470 Output Total 1200 1200 Balance 210 -1180 1470 Weight 124.5 kg Intake: IV 870 20 870 Invasive Line 1 20 20 20 Sodium Chloride 0.9% 1, 800 800 000 ml @ 100 mls/hr IV . Q10H EMILIE Rx#:[id number] cefTRIAXone 2 gm In 50 50 Sodium Chloride 0.9% 50 ml @ 100 mls/hr IVPB Q24HR EMILIE Rx#:[id number] Oral 540 600 Output: Urine 1200 1200 Other: Voiding Method Urinal Urinal Urinal Diaper Diaper Diaper # Voids 1 - Exam General: The patient is awake and alert, in no distress Eye: there is normal conjunctiva bilaterally. Neck: The neck is supple, there is no JVD. Cardiovascular: Normal S1-S2, no S3-S4, no murmurs. Respiratory: Lungs clear to auscultation bilaterally Gastrointestinal: Abdomen is soft, nontender Musculoskeletal: There is no pedal edema. Neurological:. Speech is normal. Skin: Skin is warm and dry - Labs CBC & Chem 7: 10/23/20 16:22 10/23/20 16:22 Labs: Microbiology - Last 24 Hours (Table) 10/23/20 16:22 Urine Culture - Final Urine,Voided Morganella morganii 10/23/20 16:22 Blood Culture - Preliminary Blood No Growth after 48 hours 10/23/20 16:22 Blood Culture - Preliminary Blood No Growth after 48 hours Assessment and Plan Assessment: 1. Complicated UTI 2. Chronic Urinary Retention 3. Generalized Weakness 4. Persistent Atrial Fibrillation, rate controlled, on eliquis 5. Atrial Flutter s/p Cardiac Ablation 6. Sick Sinus Syndrome s/p permanent pacemaker 7. History of Subdural Hematoma 8. Seizure Disorder 9. Hypertension, essential 10. Hyperlipidemia 11. Hx of TIA 12. Depression 13. Hypogonadism 14. Hypothyroidism 80 year old man with chronic urinary retention, persistent atrial fibrillation, paroxysmal atrial flutter s/p cardiac ablation, hx of SSS s/p DC-PPM, hx subdural hematoma, depression, and seizure disorder, HTN/HLD/Hx TIA, Hypothyroidism and hypogonadism presented with generalized weakness and syncopal episode where he fell to his knees and required 2 person assistance to transport him to the hospital; he was discovered to have UTI on UA and was started on ceftriaxone, but also complained of generalized weakness since his recent PVI and linear ablation on 10/12 warranting PT/OT evaluation for consideration of SNF placement for FRANK. UTI in setting of chronic urinary retention -C/w ceftriaxone -f/u UCx, BCx -Urology consult Weakness and failure to thrive -Seen by PT/OT Elevated inflammatory markers -Possibly due to ongoing UTI Chronic conditions: A. fib, hypertension, hyperlipidemia, depression, seizure disorder, hypogonadism -Continue with home meds DVT prophylaxis -Eliquis The patient is admitted with an anticipated greater than than 2 midnight stay for evaluation of UTI. CODE STATUS:Full Code Discussed with: Patient Anticipated discharge date: 2-[address]: Discharge planning to [facility] awaiting insurance approval
[2020-10-26] MEDS: ATORVASTATIN 40 MG TAB PO SCH (21:31)
[2020-10-27 01:50] VITALS: RESP 18
[2020-10-27] MEDS: LEVOTHYROXINE 50 MCG TAB PO SCH (07:06)
[2020-10-27 08:38] LABS: Basophils # (A) 0.1 k/uL (0-0.2); Basophils % (A) 1 %; Eosinophils # (A) 0.2 k/uL (0-0.7); Eosinophils % (A) 4 %; HCT 38.8 % (39.0-53.0); HGB 13.1 gm/dL (13.0-17.5); Lymphocytes # (A) 1.3 k/uL (1.0-4.8); Lymphocytes % (A) 20 %; MCH 33.6 pg (25.0-35.0); MCHC 33.7 g/dL (31.0-37.0); MCV 99.6 fL (80.0-100.0); Mean Platelet Volume 7.7; Monocytes # (A) 0.5 k/uL (0-1.0); Monocytes % (A) 8 %; Neutrophils # (A) 4.3 k/uL (1.3-7.7); Neutrophils % (A) 66 %; Platelet Count 281 k/uL (150-450); WBC 6.5 k/uL (3.8-10.6)
[2020-10-27 09:00] LABS: Calcium 8.1 mg/dL (8.4-10.2); Potassium 4.1 mmol/L (3.5-5.1)
[2020-10-27] MEDS: COLCHICINE 0.6 MG EACH PO SCH (10:09)
[2020-10-27] MEDS: DULoxetine HCL 30 MG CAPSULE.DR PO SCH (10:09)
[2020-10-27] MEDS: METOPROLOL SUCCINATE (ER) 50 MG TAB.ER.24H PO SCH (10:10)
[2020-10-27] MEDS: TAMSULOSIN 0.4 MG CAP.ER.24H PO SCH (10:10)
[2020-10-27] MEDS: buPROPion 100 MG TAB PO SCH (10:10)
[2020-10-27] MEDS: busPIRone HCl 10 MG TAB PO SCH (10:11)
[2020-10-27] MEDS: APIXABAN 5 MG TAB PO SCH (10:11)
[2020-10-27] MEDS: CLOTRIMAZOLE/BETAMETH 1-0.05% CREAM 45 GM TUBE TOPICAL SCH (10:12)
--- NOTE | 2020-10-27 11:44 | P.DS ---
Providers Date of admission: 10/23/20 19:48 Expected date of discharge: 10/27/20 Attending physician: Sebastián Castañeda MD Consults: 10/23/20 21:45 Consult Physician Routine Consulting Provider: Harpal Liriano Consult Reason/Comments: Urinary retention w/ UTI Do you want consulting provider notified?: Yes Primary care physician: Marita Rick Hospital Course: 1. Complicated UTI 2. Chronic Urinary Retention 3. Generalized Weakness 4. Persistent Atrial Fibrillation, rate controlled, on eliquis 5. Atrial Flutter s/p Cardiac Ablation 6. Sick Sinus Syndrome s/p permanent pacemaker 7. History of Subdural Hematoma 8. Seizure Disorder 9. Hypertension, essential 10. Hyperlipidemia 11. Hx of TIA 12. Depression 13. Hypogonadism 14. Hypothyroidism 80 year old man with chronic urinary retention, persistent atrial fibrillation, paroxysmal atrial flutter s/p cardiac ablation, hx of SSS s/p DC-PPM, hx subdural hematoma, depression, and seizure disorder, HTN/HLD/Hx TIA, Hy pothyroidism and hypogonadism presented with generalized weakness and syncopal episode where he fell to his knees and required 2 person assistance to transport him to the hospital; he was discovered to have UTI on UA and was started on ceftriaxone, but also complained of generalized weakness since his recent PVI and linear ablation on 10/12 warranting PT/OT evaluation for consideration of SNF placement for FRANK. UTI in setting of chronic urinary retention -Started on IV ceftriaxone. Urine culture grew Morganella morganii. Finish 7 days course of antibiotic with Omnicef. Seen and evaluated by urology during this admission. No evidence of urinary retention. Weakness and failure to thrive -Seen by PT/OT. Plan to discharge to [facility] for rehab Elevated inflammatory markers -Possibly due to ongoing UTI Chronic conditions: A. fib, hypertension, hyperlipidemia, depression, seizure disorder, hypogonadism -Continue with home meds Patient Condition at Discharge: Fair Plan - Discharge Summary Discharge Rx Participant: No New Discharge Prescriptions: New Cefdinir 300 mg PO Q12HR 3 Days #6 cap Continue Atorvastatin [Lipitor] 40 mg PO HS Levothyroxine Sodium [Synthroid] 50 mcg PO DAILY buPROPion [Wellbutrin] 50 mg PO BID levETIRAcetam [Keppra] 750 mg PO BID busPIRone HCL [Buspar] 30 mg PO BID Apixaban [Eliquis] 5 mg PO BID Metoprolol Succinate (ER) [Toprol XL] 50 mg PO BID Tamsulosin HCl [Flomax] 0.4 mg PO DAILY Discharge Medication List Atorvastatin [Lipitor] 40 mg PO HS 04/16/14 [History] Levothyroxine Sodium [Synthroid] 50 mcg PO DAILY 04/16/14 [History] buPROPion [Wellbutrin] 50 mg PO BID 01/20/17 [History] Apixaban [Eliquis] 5 mg PO BID 08/29/19 [History] busPIRone HCL [Buspar] 30 mg PO BID 08/29/19 [History] levETIRAcetam [Keppra] 750 mg PO BID 08/29/19 [History] Metoprolol Succinate (ER) [Toprol XL] 50 mg PO BID 09/04/20 [History] Tamsulosin HCl [Flomax] 0.4 mg PO DAILY 10/23/20 [History] Cefdinir 300 mg PO Q12HR 3 Days #6 cap 10/27/20 [Rx] Follow up Appointment(s)/Referral(s): Harpal Liriano MD [STAFF PHYSICIAN] - 2 Weeks Marita Rick MD [Primary Care Provider] - 1-2 days Discharge Disposition: TRANSFER TO SNF/ECF
[2020-10-27 16:15] VITALS: BP 124/64; PULSE 60; TEMP 97.4
== END 2020-10-27 17:18 | DRG 690 ==
LOC: EC 16:02 → 3SCARD 19:48
PROVIDERS: ADMIT Internal Medicine; ATTEND Internal Medicine
DX: N39.0 Urinary tract infection, site not specified (principal); I48.19 Other persistent atrial fibrillation; R32 Unspecified urinary incontinence; R62.7 Adult failure to thrive; E29.1 Testicular hypofunction; B96.89 Other specified bacterial agents as the cause of diseases classified elsewhere; Z20.828 Contact with and (suspected) exposure to other viral communicable diseases; I49.5 Sick sinus syndrome; I10 Essential (primary) hypertension; G40.909 Epilepsy, unspecified, not intractable, without status epilepticus; F41.9 Anxiety disorder, unspecified; F32.9 Major depressive disorder, single episode, unspecified; E86.0 Dehydration; E78.5 Hyperlipidemia, unspecified; E03.9 Hypothyroidism, unspecified; Z79.899 Other long term (current) drug therapy; Z79.890 Hormone replacement therapy; Z79.01 Long term (current) use of anticoagulants; Z91.010 Allergy to peanuts; Z95.0 Presence of cardiac pacemaker; Z87.891 Personal history of nicotine dependence; Z86.73 Personal history of transient ischemic attack (TIA), and cerebral infarction without residual deficits; Z80.3 Family history of malignant neoplasm of breast; Z98.890 Other specified postprocedural states
CPT/HCPCS: 36415; 70450; 71046; 71275; 80048; 80053; 81001; 82550; 82728; 83605; 83615; 83735; 84145; 84484; 85025; 85379; 85610; 85730; 86140; 87040; 87077; 87086; 87186; 87635; 87636; 93005; 96365; 96367; 99285

== ENCOUNTER → 2021-04-07 | Outpatient (CLI) | payer MEDICARE | END | disposition home or self-care (01) | LOC: LABWHC1 11:22 | PROVIDERS: ATTEND Psychiatry & Neurology Neurology | DX: G40.209 Localization-related (focal) (partial) symptomatic epilepsy and epileptic syndromes with complex partial seizures, not intractable, without status epilepticus (principal) | CPT/HCPCS: 36415; 80177 ==

== ENCOUNTER 2022-02-28 09:33 | Day surgery (SDC) | payer MEDICARE ==
[2022-02-25 11:11] VITALS: BMI 34.8
[~2022-02-28 09:33] MED LIST changes: +SODIUM CHLORIDE 0.9% 1,000 ML IV SCH; -ceFAZolin 3 GM in SODIUM CHLORIDE 0.9% 100 ML IVPB ONE
[2022-02-28 10:06] VITALS: BP 144/72; PULSE 60; RESP 16; TEMP 98.1
[2022-02-28 10:17] LABS: Basophils # (A) 0.1 k/uL (0-0.2); Basophils % (A) 1 %; Eosinophils # (A) 0.2 k/uL (0-0.7); Eosinophils % (A) 3 %; HCT 44.8 % (39.0-53.0); HGB 14.8 gm/dL (13.0-17.5); Lymphocytes # (A) 1.5 k/uL (1.0-4.8); Lymphocytes % (A) 21 %; MCH 32.6 pg (25.0-35.0); MCV 98.7 fL (80.0-100.0); Mean Platelet Volume 8.6; Monocytes # (A) 0.6 k/uL (0-1.0); Monocytes % (A) 9 %; Neutrophils # (A) 4.8 k/uL (1.3-7.7); Neutrophils % (A) 65 %; Platelet Count 248 k/uL (150-450); RBC 4.53 m/uL (4.30-5.90); RDW 11.9 % (11.5-15.5); WBC 7.4 k/uL (3.8-10.6)
[2022-02-28 10:43] LABS: African American GFR (CKD) 80 (>60 ml/min/1.73 sqM); Anion Gap 8 mmol/L; Blood Urea Nitrogen 16 mg/dL (9-20); Calcium 8.7 mg/dL (8.4-10.2); Carbon Dioxide 21 mmol/L (22-30); Chloride 111 mmol/L (98-107); Glucose 114 mg/dL (74-99); Non-African American GFR(CKD) 69 (>60 ml/min/1.73 sqM); Potassium 4.3 mmol/L (3.5-5.1); Sodium 140 mmol/L (137-145)
[2022-02-28] MEDS ORDERED: IOPAMIDOL-370 50ML BTL INJ ONE (11:56)
--- NOTE | 2022-02-28 12:32 | P.EPPROC ---
- EP Procedure Note Electrophysiology Procedure Note: Diagnosis Persistent atrial fibrillation Bradycardia Increased RV pacing percentage noted Increased A. fib Birden noted Status post dual-chamber ICD, [place] [employer] Status post A. fib ablation with PVI and linear ablation as well as ablation of focal atrial tachycardia in the left atrial roof Resistant focal atrial tachycardia at the upper interatrial septum, epicardial location resist the RF Procedure 1 Cinefluoroscopy of the leads: Cinefluoroscopy of the leads was performed. Chron ic right atrial and right ventricular leads were noted without any fractures or breaks. 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
== END 2022-02-28 12:58 | disposition home or self-care (01) ==
LOC: CATHEP 09:33
PROVIDERS: ATTEND Internal Medicine Clinical Cardiac Electrophysiology
DX: I48.19 Other persistent atrial fibrillation (principal); R00.1 Bradycardia, unspecified; I10 Essential (primary) hypertension; I25.10 Atherosclerotic heart disease of native coronary artery without angina pectoris; E78.5 Hyperlipidemia, unspecified; F17.210 Nicotine dependence, cigarettes, uncomplicated; Z79.899 Other long term (current) drug therapy; I34.0 Nonrheumatic mitral (valve) insufficiency; Z86.73 Personal history of transient ischemic attack (TIA), and cerebral infarction without residual deficits; Z20.822 Contact with and (suspected) exposure to COVID-19
CPT/HCPCS: 36005; 75820; 80048; 84443; 85025; 87635; Q9967

== ENCOUNTER → 2022-07-12 | Outpatient (CLI) | payer MEDICARE ==
[2022-07-12 15:09] LABS: MCH 31.3 pg (27.0-32.0); MCHC 32.6 g/dL (32.0-37.0); Mean Platelet Volume 10.6 fL (9.5-12.2); NRBC Per 100 WBC 0 /100 WBCS (0.0-0.0); Platelet Count 263 X 10*3/uL (140-440); RBC 4.79 X 10*6/uL (4.40-5.60); RDW 11.9 % (11.5-14.5)
[2022-07-12 15:42] LABS: African American GFR (CKD) 66.5 (60.0-200.0); Anion Gap 11.8 mmol/L (10.00-18.00); Blood Urea Nitrogen 19.5 mg/dL (9.0-27.0); Carbon Dioxide 20.5 mmol/L (20.0-27.5); Non-African American GFR(CKD) 57.4 (60.0-200.0); Potassium 4.4 mmol/L (3.5-5.5)
== END | disposition home or self-care (01) ==
LOC: LABPAT 10:46
PROVIDERS: ATTEND Internal Medicine Clinical Cardiac Electrophysiology
DX: Z01.812 Encounter for preprocedural laboratory examination (principal); I25.10 Atherosclerotic heart disease of native coronary artery without angina pectoris; I49.5 Sick sinus syndrome; I48.19 Other persistent atrial fibrillation
CPT/HCPCS: 80051; 82565; 84520; 85027

== ENCOUNTER 2022-07-26 08:08 | Day surgery (SDC) | payer MEDICARE ==
[2022-07-25 10:57] VITALS: BMI 34.9
[~2022-07-26 08:08] MED LIST changes: -SODIUM CHLORIDE 0.9% 1,000 ML IV SCH; +ceFAZolin 1 GM in SODIUM CHLORIDE 0.9% IRRIG BTL 250 ML IRRIGATION PRN
[2022-07-26] MEDS: SODIUM CHLORIDE 0.9% 1,000 ML IV SCH (08:56)
[2022-07-26] MEDS ORDERED: PROPOFOL 10 MG/ML 20 ML VIAL IV ONE (09:17)
[2022-07-26] MEDS ORDERED: fentaNYL (PF) 50 MCG/ML 2 ML AMP ONE (09:17)
[2022-07-26] MEDS ORDERED: MIDAZOLAM 2 MG/2 ML VIAL ONE (09:17)
[2022-07-26] MEDS ORDERED: IOPAMIDOL-370 50ML BTL INJ ONE ×2 (09:25→09:42)
[2022-07-26] MEDS ORDERED: VANCOMYCIN 2,000 MG in SODIUM CHLORIDE 0.9% 500 ML 500 ML IVPB STA (09:45)
[2022-07-26] MEDS ORDERED: LIDOCAINE 1% INJ 10MG/ML (30 ML VIAL-PF) SQ ONE (10:01)
[2022-07-26] MEDS: LIDOCAINE 1% INJ 10MG/ML (30 ML VIAL-PF) SQ ONE ×2 (10:01→10:24)
[2022-07-26] MEDS ORDERED: ACETAMINOPHEN TAB 325 MG TAB PO PRN (12:39)
--- NOTE | 2022-07-26 12:39 | P.EPPROC ---
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 Written informed consent was obtained prior to the procedure. Conscious sedation provided by anesthesia team IV antibiotics administered. Local anesthesia administered. The left upper extremity venogram revealed a tight stenosis in the subclavian junction with the axillary vein First percutaneous access was sought and a guidewire was placed in the left subclavian vein This was carefully maneuvered into the innominate vein and down the SVC into the right atrium and IVC The sheath was placed and an advantage 5 was placed into the IVC Following that an incision was made over the previous surgical site and carried down to the level of the generator The generator was explanted without disconnecting the leads [place] capsulectomy was performed Serial dilatation of the access was performed up to 10-[place] An 8-[place] sheath was then placed The His bundle sheath was then placed within that and a Metronic 3830-lead was placed Mapping for the left bundle was performed successfully LV lead positioned in the LV vein Left bundle pacing was successfully performed Stim to first peak of V6 was less than 60 ms, and later exactly measured 52 ms S width was a right bundle branch block morphology, 140 ms These parameters remained stable Sheath was removed lead was secured Arteries interrogated The generator was explanted, dual-chamber The new biventricular pacemaker generator was implanted An antibiotic pouch was placed The wound was cleansed in 3 layers and dressed per protocol Metronic Biventricular pacemaker device DDIR 60-1:30 milliseconds with preferential left bundle pacing Right atrial pacing impedance 437 ohms RV pacing impedance 435 ohms, pacing threshold 0.4 V at 1.2 ms Left bundle pacing threshold 0.6 1.4 ms and pacing impedance of 515 ohms Stim to peak of V6 equals less than 60 ms, exactly 52 ms URS with 140 ms, right bundle branch block type
--- NOTE | 2022-07-26 13:17 | XR ---
EXAMINATION TYPE: XR chest 1V portable DATE OF EXAM: 07/26/2022 HISTORY: Shortness of breath. COMPARISON: None. TECHNIQUE: Single view of the chest is submitted. FINDINGS: Dual lead pacer device with distally leads within the right ventricle and right atrium respectively. No evidence of pneumothorax. Pulmonary venous congestion with interstitial edema likely chronic in na ture. The heart is stable. Hilar and mediastinal structures are within normal limits. Degenerative changes are seen of the dorsal spine. IMPRESSION: 1. Chronic changes without evidence for acute pulmonary disease.
[2022-07-26] MEDS ORDERED: ATORVASTATIN 40 MG TAB PO SCH (21:00)
[2022-07-26] MEDS ORDERED: METOPROLOL SUCCINATE (ER) 100 MG TAB.ER.24H PO SCH (21:00)
[2022-07-26] MEDS: APIXABAN 5 MG TAB PO SCH (21:14)
[2022-07-27] MEDS: SODIUM CHLORIDE 0.9% 1,000 ML IV SCH (01:34)
[2022-07-27] MEDS: APIXABAN 5 MG TAB PO SCH (09:58)
--- NOTE | 2022-07-27 11:25 | P.DS ---
Providers Attending physician: Dusty Hinojosa Primary care physician: Bethany Pereyra [facility] Course: This is an 82-year-old male who underwent biventricular pacemaker implantation with Dr. Hinojosa. The patient is doing well post procedure. No complaints of chest pain or pressure. Denies SOB. Vital signs are stable. Patient was deemed stable for discharge home today per Dr. Hinojosa. Please see EMR for further hospital course details. 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 Signing provider agrees with the documented findings, assessment, and plan of care. Plan - Discharge Summary Discharge Rx Participant: No New Discharge Prescriptions: Continue Atorvastatin [Lipitor] 40 mg PO HS levETIRAcetam [Keppra] 750 mg PO BID Apixaban [Eliquis] 5 mg PO BID Metoprolol Succinate [Toprol XL] 100 mg PO HS Discharge Medication List Atorvastatin [Lipitor] 40 mg PO HS 04/16/14 [History] Apixaban [Eliquis] 5 mg PO BID 08/29/19 [History] levETIRAcetam [Keppra] 750 mg PO BID 08/29/19 [History] Metoprolol Succinate [Toprol XL] 100 mg PO HS 02/25/22 [History] Follow up Appointment(s)/Referral(s): Dusty Hinojosa MD [STAFF PHYSICIAN] - 1 Week (APPOINTMENT FOR DEVICE CHECK MNSHAYNA ON @ 2:30PM Appointment with Device Clinic in 5-7 days at Cardiology Office- office will call with appointment date and time) Activity/Diet/Wound Care/Special Instructions: PATIENT EDUCATION MATERIAL Instructions following a heart rhythm device implant. 1. Keep dressing DRY for 5 DAYS. You may cover the area with Saran or Cling Wrap, prior to a shower. 2. The dressing will be removed in the Device Clinic at [facility]. Absorbable sutures were used to close the wound. 3. Avoid raising the left arm above the shoulder level. 4 week restriction 4. Avoid arm movements, like backscratching, rubbing the head, or pulling on a cord. 4 weeks restriction 5. Gentle range of motion movements of the shoulder, closest to the incision should be performed to avoid a frozen shoulder. (Pendulum exercises of the shoulder) 6. The opposite arm may be used freely. 7. Avoid driving for 7 days. 8. Avoid activities such as golfing, swimming, weed whacking, lifting more than 10 pounds weight, bowling, gymnastics and weight training/lifting. (6 weeks restriction) 9. Activities such as wood chopping with an axe, pull-ups in the gymnasium, power lifting, arc-welding, being close to home induction cooktops will always be a problem. 10. Arm sling is only a reminder not to raise the arm above the head. You do not need to keep the arm completely immobilized. Your free to move the arm and use it and for normal activities. In case of any problems, please call [facility], [place], @ [phone], Attention: Device Clinic Device clinic follow-up in 5 days Follow-up with primary director long term care in 2-3 months Discharge Disposition: HOME SELF-CARE
[2022-07-27 11:45] VITALS: BP 119/84; PULSE 65; RESP 13; TEMP 97.8
== END 2022-07-27 14:16 | disposition home or self-care (01) ==
LOC: CATHEP 08:08 → 6NMEDSUR 12:07 → CATHEP 07-27 14:16
PROVIDERS: ATTEND Internal Medicine Clinical Cardiac Electrophysiology
DX: R00.1 Bradycardia, unspecified (principal); I42.9 Cardiomyopathy, unspecified; I25.10 Atherosclerotic heart disease of native coronary artery without angina pectoris; I10 Essential (primary) hypertension; I49.5 Sick sinus syndrome; E78.5 Hyperlipidemia, unspecified; Z20.822 Contact with and (suspected) exposure to COVID-19; Z86.73 Personal history of transient ischemic attack (TIA), and cerebral infarction without residual deficits; R53.82 Chronic fatigue, unspecified; F32.A Depression, unspecified; I48.19 Other persistent atrial fibrillation; I34.0 Nonrheumatic mitral (valve) insufficiency; Z72.0 Tobacco use; Z79.01 Long term (current) use of anticoagulants; Z79.890 Hormone replacement therapy; Z79.899 Other long term (current) drug therapy
CPT/HCPCS: 33225; 33229; 87635; 71045; C1769 ×3; C1887; C1892; C1898; C2621; J2250; J3370; J0690; J2001; J3010; J2704; Q9967

== ENCOUNTER → 2024-02-13 | Outpatient (CLI) | payer MEDICARE ==
[2024-02-13 16:08] LABS: Basophils # (A) 0.05 X 10*3/uL (0.00-0.10); Basophils % (A) 0.8 %; Eosinophils # (A) 0.13 X 10*3/uL (0.04-0.35); HCT 45.5 % (39.6-50.0); HGB 15.1 g/dL (13.0-17.0); Lymphocytes # (A) 1.72 X 10*3/uL (0.90-5.00); Lymphocytes % (A) 26.6 %; MCH 33.3 pg (27.0-32.0); MCHC 33.2 g/dL (32.0-37.0); MCV 100.4 FL (80.0-97.0); Mean Platelet Volume 10.3 FL (9.5-12.2); Monocytes # (A) 0.89 X 10*3/uL (0.20-1.00); Monocytes % (A) 13.8 %; NRBC Per 100 WBC 0 X 10*3/uL (0.00-0.01); Neutrophils # (A) 3.65 X 10*3/uL (1.80-7.70); Neutrophils % (A) 56.5 %; Platelet Count 245 X 10*3/uL (140-440); RBC 4.53 X 10*6/uL (4.40-5.60); RDW 12.6 % (11.5-14.5); WBC 6.46 X 10*3/uL (4.50-10.00)
[2024-02-13 23:58] LABS: NT-Pro-B-Type Natriuretic Pept 2329 pg/mL (0-450)
[2024-02-14 00:29] LABS: Chol/HDL Ratio 2.68 Ratio
[2024-02-14 00:30] LABS: ALT 12 U/L (10-49); AST 36 U/L (14-35); Albumin 3.9 g/dL (3.8-4.9); Albumin/Globulin Ratio 1.44 Ratio (1.60-3.17); Alkaline Phosphatase 144 U/L (41-126); BUN/Creat Ratio 10.54 Ratio (12.00-20.00); Blood Urea Nitrogen 13.7 mg/dL (9.0-27.0); Calcium 9.2 mg/dL (8.7-10.3); Carbon Dioxide 21.1 mmol/L (21.6-31.8); Chloride 103 mmol/L (96-109); Globulin 2.7 g/dL (1.6-3.3); Glucose 109 mg/dL (70-110); LDL Cholesterol,Calculated 67.1 mg/dL (0.0-131.0); Potassium 4.8 mmol/L (3.5-5.5); Sodium 140 mmol/L (135-145); Total Bilirubin 1.7 mg/dL (0.3-1.2); Total Protein 6.6 g/dL (6.2-8.2)
== END | disposition home or self-care (01) ==
LOC: LABWHC1 12:54
PROVIDERS: ATTEND Internal Medicine Clinical Cardiac Electrophysiology
DX: I10 Essential (primary) hypertension (principal); I48.19 Other persistent atrial fibrillation; E78.5 Hyperlipidemia, unspecified
CPT/HCPCS: 36415; 80053; 80061; 83735; 83880; 84443; 85025

== ENCOUNTER 2024-03-08 14:09 | Inpatient (IN) | payer MEDICARE ==
--- NOTE | 2024-03-08 14:31 | ED ---
General Adult HPI - General Chief complaint: Neuro Symptoms/Deficit Stated complaint: Slurred speech Time Seen by Provider: 03/08/24 14:17 Source: patient, RN notes reviewed Mode of arrival: EMS Limitations: no limitations - History of Present Illness Initial comments: Patient is an 84-year-old male presenting to the emergency department with concerns for speech problems. Patient comes from [facility]. Patient is somewhat a poor historian. Patient states he is unclear when the symptoms started. Patient states he has been having these symptoms around once a month for the past few months. Patient denies any other acute concerns. No extremity weakness. No confusion. - Related Data Home Medications Medication Instructions Recorded Confirmed Atorvastatin [Lipitor] 40 mg PO HS 04/16/14 03/08/24 Apixaban [Eliquis] 5 mg PO BID 08/29/19 03/08/24 levETIRAcetam [Keppra] 750 mg PO BID 08/29/19 03/08/24 Metoprolol Succinate [Toprol XL] 150 mg PO HS 02/25/22 03/08/24 Ergocalciferol [Vitamin D2 (1250 1,250 mcg PO FR 03/08/24 03/08/24 Mcg = 81742 Iu)] Losartan [Cozaar] 25 mg PO HS 03/08/24 03/08/24 Triamterene-Hctz 37.5-25Mg 1 tab PO HS 03/08/24 03/08/24 [Maxzide 37.5-25] Allergies Allergy/AdvReac Type Severity Reaction Status Date / Time peanut Allergy Dyspnea Verified 03/08/24 14:46 Review of Systems ROS Statement: Those systems with pertinent positive or pertinent negative responses have been documented in the HPI. ROS Other: All systems not noted in ROS Statement are negative. Constitutional: Denies: fever Eyes: Denies: eye pain ENT: Denies: ear pain Respiratory: Denies: dyspnea Cardiovascular: Denies: chest pain Endocrine: Denies: fatigue Gastrointestinal: Denies: abdominal pain Genitourinary: Denies: dysuria Musculoskeletal: Reports: back pain ( chronic back pain. No acute changes) Neurological: Denies: headache, weakness, paresthesias, confusion Past Medical History Past Medical History: Atrial Fibrillation, Hypertension, Seizure Disorder, Sleep Apnea/CPAP/BIPAP Additional Past Medical History / Comment(s): QUIT USING C-PAP AFTER WT LOSS., BULDGING DISC'S , LAST SEIZURE 5-6 MONTHS AGO., HX OF COVID (NOV 2020)., SICK SINUS SYNDROME, SEE CARDIOLOGY H & P. History of Any Multi-Drug Resistant Organisms: MRSA Date of last positivie culture/infection: 11/25/20 MDRO Source:: Urine Past Surgical History: Ablation, Cardiac Ablation, Pacemaker Additional Past Surgical History / Comment(s): left eye surg., HEART CATHS X3, HEMORROIDECTOMY, SX FOR SLEEP APNEA, MOLE REMOVED LT LEG(BENIGN), CARDIAC ABLATION X2., [employer] Past Anesthesia/Blood Transfusion Reactions: Previous Problems w/ Anesthesia Additional Past Anesthesia/Blood Transfusion Reaction / Comment(s): STATES AFTER CARDIAC ABLATION "I DID NOT FEEL WELL, I COULD NOT THINK OR WALK" Type of Cardiac Device: Permanent Pacemaker Device Placement Date:: ?2016 Past Psychological History: Depression Smoking Status: Unknown if ever smoked Past Alcohol Use History: None Reported Past Drug Use History: None Reported - Past Family History Sister(s) Family Medical History: Cancer Additional Family Medical History / Comment(s): BREAST CANCER Father Additional Family Medical History / Comment(s): abdominal aneurysm General Exam Limitations: no limitations General appearance: alert, in no apparent distress Head exam: Present: normocephalic Eye exam: Present: normal appearance, PERRL, EOMI ENT exam: Present: normal oropharynx Neck exam: Present: normal inspection Respiratory exam: Present: normal lung sounds bilaterally Cardiovascular Exam: Present: regular rate, normal rhythm, normal heart sounds GI/Abdominal exam: Present: soft. Absent: tenderness Extremities exam: Present: normal inspection Neurological exam: Present: alert, oriented X3, CN II-XII intact. Absent: motor sensory deficit Expanded Neurological exam: Present: protecting the airway Speech: Present: fluid speech Cranial nerves: EOM's Intact: Normal, Facial Sensation: Normal Sensory exam: Upper Extremity Light Touch: Normal, Lower Extremity Light Touch: Normal Motor strength exam: RUE: 5, LUE: 5, RLE: 5, LLE: 5 Eye Response: (4) open spontaneously Motor Response: (6) obeys commands Verbal Response: (5) oriented Psychiatric exam: Present: normal affect, normal mood Skin exam: Present: normal color Course Vital Signs 03/08/24 14:10 Temperature 98 F Pulse Rate 80 Respiratory 18 Rate Blood Pressure 115/75 O2 Sat by Pulse 98 Oximetry EKG Findings - EKG Results: EKG: interpreted by ERMD (Paced rhythm with a rate of 80. PVCs present. Wide- complex QRS. Nonspecific T waves.) Medical Decision Making - Medical Decision Making Patient is not considered a candidate for tPA. Risks are felt to outweigh the benefits. Patient only has minimal slurred speech of unclear onset. Was pt. sent in by a medical professional or institution (, PA, ASSISTED SALES REPRESENTATIVE, urgent care, hospital, or prison...) When possible be specific @ -Patient was sent in by [facility] Did you speak to anyone other than the patient for history (EMS, parent, family, police, friend...)? What history was obtained from this source @ -No Did you review nursing and triage notes (agree or disagree)? Why? @ -I reviewed and agree with nursing and triage notes Were old charts reviewed (outside hosp., previous admission, EMS record, old EKG, old radiological studies, urgent care reports/EKG's, prison records)? Report findings @ -Previous chest x-ray shows questionable left lower lobe infiltrate different from today Differential Diagnosis (chest pain, altered mental status, abdominal pain women, abdominal pain men, vaginal bleeding, weakness, fever, dyspnea, syncope, headache, dizziness, GI bleed, back pain, seizure, CVA, palpatations, mental health, musculoskeletal)? @ -Differential Weakness: Hypoglycemia, shock, sepsis, hyponatremia, anemia, infection, IA, ETOH, adverse medicine reaction, overdose, stroke, this is not meant to be an all-inclusive list. EKG interpreted by me (3pts min.). @ -As above X-rays interpreted by me (1pt min.). @ -Chest x-ray shows no acute process CT interpreted by me (1pt min.). @ -CT brain without acute abnormality U/S interpreted by me (1pt. min.). @ -None done What testing was considered but not performed or refused? (CT, X-rays, U/S, labs)? Why? @ -None What meds were considered but not given or refused? Why? @ -None Did you discuss the management of the patient with other professionals (professionals i.e. , PA, ASSISTED SALES REPRESENTATIVE, lab, RT, psych nurse, health social work professor, tea bag machine tender, teacher, privacy officer, spring encaser)? Give summary @ -Case was discussed with Dr. Sher will admit covering Dr. Pereyra Was smoking cessation discussed for >3mins.? @ -No Was critical care preformed (if so, how long)? @ -No Were there social determinants of health that impacted care today? How? (Homelessness, low income, unemployed, alcoholism, drug addiction, transportation, low edu. Level, literacy, decrease access to med. care, care home, rehab)? @ -No Was there de-escalation of care discussed even if they declined (Discuss DNR or withdrawal of care, Hospice)? DNR status @ -No What co-morbidities impacted this encounter? (DM, HTN, Smoking, COPD, CAD, Cancer, CVA, ARF, Chemo, Hep., AIDS, mental health diagnosis, sleep apnea, morbid obesity)? @ -None Was patient admitted / discharged? Hospital course, mention meds given and route, prescriptions, significant lab abnormalities, going to OR and other pertinent info. @ -Patient reevaluated and updated. Patient will be admitted with IV fluids and neurology consult. Admission orders written. Consult placed. Undiagnosed new problem with uncertain prognosis? @ -No Drug Therapy requiring intensive monitoring for toxicity (Heparin, Nitro, Insulin, Cardizem)? @ -No Were any procedures done? @ -No Diagnosis/symptom? @ -Acute kidney injury, slurred speech Acute, or Chronic, or Acute on Chronic? @ -Acute Uncomplicated (without systemic symptoms) or Complicated (systemic symptoms)? @ -Default Side effects of treatment? @ -No Exacerbation, Progression, or Severe Exacerbation? @ -No Poses a threat to life or bodily function? How? (Chest pain, USA, IA, pneumonia, PE, COPD, DKA, ARF, appy, cholecystitis, CVA, Diverticulitis, Homicidal, Suicidal, threat to staff... and all critical care pts) @ -No - Lab Data Result diagrams: 03/08/24 14:32 03/08/24 14:32 Lab Results 03/08/24 03/08/24 03/08/24 Range/Units 14:32 14:32 14:32 WBC 10.8 H (3.8-10.6) k/uL RBC 5.29 (4.30-5.90) m/uL Hgb 17.1 (13.0-17.5) gm/dL Hct 52.6 (39.0-53.0) % MCV 99.5 (80.0-100.0) fL MCH 32.3 (25.0-35.0) pg MCHC 32.5 (31.0-37.0) g/dL RDW 11.9 (11.5-15.5) % Plt Count 214 (150-450) k/uL MPV 8.3 Neutrophils % 78 % Lymphocytes % 10 % Monocytes % 8 % Eosinophils % 1 % Basophils % 1 % Neutrophils # 8.4 H (1.3-7.7) k/uL Lymphocytes # 1.1 (1.0-4.8) k/uL Monocytes # 0.9 (0-1.0) k/uL Eosinophils # 0.1 (0-0.7) k/uL Basophils # 0.1 (0-0.2) k/uL PT 12.0 (10.0-12.5) sec INR 1.1 (<1.2) APTT 26.6 (22.0-30.0) sec Sodium 136 L (137-145) mmol/L Potassium 4.7 (3.5-5.1) mmol/L Chloride 106 (98-107) mmol/L Carbon Dioxide 25 (22-30) mmol/L Anion Gap 5 mmol/L BUN 44 H (9-20) mg/dL Creatinine 1.81 H (0.66-1.25) mg/dL Est GFR (CKD-EPI)AfAm 39 (>60 ml/min/1.73 sqM) Est GFR (CKD-EPI)NonAf 34 (>60 ml/min/1.73 sqM) Glucose 112 H (74-99) mg/dL Calcium 8.9 (8.4-10.2) mg/dL Total Bilirubin 2.6 H (0.2-1.3) mg/dL AST 42 (17-59) U/L ALT 18 (4-49) U/L Alkaline Phosphatase 167 H (38-126) U/L Creatine Kinase 68 (55-170) U/L Total Protein 7.1 (6.3-8.2) g/dL Albumin 3.8 (3.5-5.0) g/dL Disposition Clinical Impression: Acute kidney injury, Slurred speech Disposition: ADMITTED IP TO THIS HOSP Is patient prescribed a controlled substance at d/c from ED?: No Referrals: Bethany Pereyra MD [Primary Care Provider] - 1-2 days Time of Disposition: 16:45
[2024-03-08 14:53] LABS: Basophils # (A) 0.1 k/uL (0-0.2); Basophils % (A) 1 %; Eosinophils # (A) 0.1 k/uL (0-0.7); Eosinophils % (A) 1 %; HCT 52.6 % (39.0-53.0); HGB 17.1 gm/dL (13.0-17.5); Lymphocytes # (A) 1.1 k/uL (1.0-4.8); Lymphocytes % (A) 10 %; MCH 32.3 pg (25.0-35.0); MCHC 32.5 g/dL (31.0-37.0); MCV 99.5 fL (80.0-100.0); Mean Platelet Volume 8.3; Monocytes # (A) 0.9 k/uL (0-1.0); Monocytes % (A) 8 %; Neutrophils # (A) 8.4 k/uL (1.3-7.7); Neutrophils % (A) 78 %; Platelet Count 214 k/uL (150-450); RBC 5.29 m/uL (4.30-5.90); RDW 11.9 % (11.5-15.5); WBC 10.8 k/uL (3.8-10.6)
--- NOTE | 2024-03-08 14:55 | XR ---
EXAMINATION TYPE: XR chest 2V DATE OF EXAM: 03/08/2024 COMPARISON: NONE HISTORY: Shortness of breath TECHNIQUE: Frontal and lateral views of the chest are obtained. FINDINGS: Scattered senescent parenchymal changes noted. No evidence for infiltrate. No evidence for atelectasis. Heart size is stable. Mediastinal structures are stable and grossly unremarkable. No evidence for hilar prominence. Degenerative changes dorsal spine. IMPRESSION: 1. No evidence for acute pulmonary disease.
[2024-03-08 15:02] LABS: INR 1.1 (<1.2); Partial Thromboplastin Time 26.6 sec (22.0-30.0)
--- NOTE | 2024-03-08 15:08 | CT ---
EXAMINATION TYPE: CT brain wo con CT DLP: 1181.4 mGycm, Automated exposure control for dose reduction was used. DATE OF EXAM: 03/08/2024 3:02 PM COMPARISON: 10/23/2020. CLINICAL INDICATION:Male, 84 years old with history of Neuro deficit, acute, stroke suspected, hypote nsion and slurred speech TECHNIQUE: Brain: Axial CT images of the brain were obtained with coronal and sagittal reformats created and rev iewed. Contrast used: None. Oral contrast used: None. FINDINGS: Brain: Extra-axial spaces: No abnormal extra-axial fluid collections. Ventricular system: Pedicles and sulci are enlarged with involution. Cerebral parenchyma: No acute intraparenchymal hemorrhage or mass effect. The lindo-white junction is well differentiated periventricular low attenuation consistent with chronic microangiopathy Cerebellum: Unremarkable. Mass effect: No evidence of midline shift. Intracranial vasculature: unremarkable Soft tissues: Normal. Calvarium/osseous structures: No depressed skull fracture. Paranasal sinuses and mastoid air cells: Mild scattered paranasal sinus disease. Visualized orbits: Orbital contents are intact. IMPRESSION: No acute intracranial process. Age-related involution and chronic microangiopathy
[2024-03-08 15:15] LABS: ALT 18 U/L (4-49); AST 42 U/L (17-59); African American GFR (CKD) 39 (>60 ml/min/1.73 sqM); Albumin 3.8 g/dL (3.5-5.0); Alkaline Phosphatase 167 U/L (38-126); Anion Gap 5 mmol/L; Blood Urea Nitrogen 44 mg/dL (9-20); Calcium 8.9 mg/dL (8.4-10.2); Carbon Dioxide 25 mmol/L (22-30); Chloride 106 mmol/L (98-107); Creatine Kinase 68 U/L (55-170); Glucose 112 mg/dL (74-99); Non-African American GFR(CKD) 34 (>60 ml/min/1.73 sqM); Potassium 4.7 mmol/L (3.5-5.1); Sodium 136 mmol/L (137-145); Total Bilirubin 2.6 mg/dL (0.2-1.3); Total Protein 7.1 g/dL (6.3-8.2)
[2024-03-08] MEDS ORDERED: NALOXONE 0.4 MG/ML 1 ML VIAL IV PRN (16:45)
[2024-03-08] MEDS ORDERED: ACETAMINOPHEN TAB 325 MG TAB PO PRN (16:45)
[2024-03-08] MEDS: ASPIRIN 325 MG TAB PO SCH (18:19)
[2024-03-08] MEDS: SODIUM CHLORIDE 0.9% 1,000 ML IV STA (18:20)
[2024-03-08] MEDS: SODIUM CHLORIDE 0.9% 1,000 ML IV SCH (18:23)
[2024-03-08] MEDS: APIXABAN 2.5 MG TABLET PO SCH (23:04)
[2024-03-08] MEDS: METOPROLOL SUCCINATE (ER) 25 MG TAB.ER.24H PO SCH (23:04)
[2024-03-08] MEDS: ATORVASTATIN 40 MG TAB PO SCH (23:04)
--- NOTE | 2024-03-09 10:51 | US ---
EXAMINATION TYPE: US carotid duplex BILAT DATE OF EXAM: 03/09/2024 COMPARISON: NONE CLINICAL INDICATION: Male, 84 years old with history of stroke; slurred speech, possible stroke TECHNIQUE: Carotid duplex ultrasound examination. Indirect Doppler criteria was utilized. FINDINGS: EXAM MEASUREMENTS: RIGHT: Peak Systolic Velocity (PSV) cm/sec ----- Right CCA: 94.7 ----- Right ICA: 88.9 ----- Right ECA: 73.0 ICA/CCA ratio: 0.94 RIGHT: End Diastole cm/sec ----- Right CCA: 9.8 ----- Right ICA: 19.0 ----- Right ECA: 2.6 LEFT: Peak Systolic Velocity (PSV) cm/sec ----- Left CCA: 89.9 ----- Left ICA: 71.7 ----- Left ECA: 87.9 ICA/CCA ratio: 0.8 LEFT: End Diastole cm/sec ----- Left CCA: 11.8 ----- Left ICA: 20.9 ----- Left ECA: 0.0 VERTEBRALS (direction of flow): Right Vertebral: Antegrade Left Vertebral: Antegrade MUSEUM OR ZOO DIRECTOR NOTES: Mild plaque bilateral bifurcations. No evidence of increased velocities IMPRESSION: No hemodynamically significant internal carotid artery stenosis on either side. Criteria for Assigning % of Stenosis / Diameter reduction (Estimation based on the indirect measurements of the internal carotid artery velocities (ICA PSV). 1. Normal (no stenosis)=ICA PSV < 125 cm/s: ratio < 2.0: ICA EDV<40 cm/s. 2. Less than 50% stenosis=ICA PSV < 125 cm/s: ratio < 2.0: ICA EDV<40 cm/s. 3. 50 to 69% stenosis=ICA PSV of 125 to 230 cm/s: ration 2.0 ? 4.0: ICA EDV 40-100 cm/s. 4. Greater than 70% stenosis to near occlusion= ICA PSV > 230 cm/s: ratio > 4.0: ICA EDV > 100 cm/s. 5. Near occlusion= ICA PSV velocities may be low or undetectable: variable ratio and ICA EDV. 6. Total occlusion=unable to detect flow.
[2024-03-09 12:24] LABS: BUN/Creat Ratio 22.53 Ratio (12.00-20.00); Blood Urea Nitrogen 38.3 mg/dL (9.0-27.0); Calcium 8.9 mg/dL (8.7-10.3); Carbon Dioxide 25.5 mmol/L (21.6-31.8); Chloride 103 mmol/L (96-109); Glucose 101 mg/dL (70-110); Potassium 4.2 mmol/L (3.5-5.5); Sodium 138 mmol/L (135-145)
--- NOTE | 2024-03-09 14:29 | P.CNNES ---
History of Present Illness Consult date: 03/09/24 Requesting physician: Freddy Dover Reason for Consult: slurred speech History of Present Illness: this is an 84-year-old gentleman with history of seizures who presents to the emergency department for speech problems. Some of the history is obtained from medical record since patient seems to be inconsistent with a history. It seems the patient comes from the [facility] because of speech problems. He notified the ED team that he had the symptoms are round one month ago for the past few months per the ED note but he notified me that he had about 2 days ago. he states he was notified in the past he had TIAs regarding his slurred speech but when he followed up with Dr. Shaw his neurologist he notified him that his slurred speech was not TIAs and were seizures according to the patient. Patient is on Keppra 750 mg twice a day. He continues to follow-up with Dr. Shaw for neurological management. He denies any focal weakness, numbness, difficulty swallowing. He does have underlying atrial fibrillation and is on eliquis. It seems he has pacemaker. Has has stribusmus of the left eye. Some of the work-up during this hospital visit consisted of: sodium was recently one is 138 Creatinine is 1.81 on presentation Glucoses 112 Calcium is 8.9 AST ALT is within normal limits CT of the head is reported as no acute intracranial process. age-related involution and chronic microangiopathy. I personally reviewed the CT and there is no acute or subacute stroke. There is no bleed. Review of Systems Limited but he positive and negative as per HPI. Past Medical History Past Medical History: Atrial Fibrillation, Hypertension, Seizure Disorder, Sleep Apnea/CPAP/BIPAP Additional Past Medical History / Comment(s): QUIT USING C-PAP AFTER WT LOSS., BULDGING DISC'S , LAST SEIZURE 5-6 MONTHS AGO., HX OF COVID (NOV 2020)., SICK SINUS SYNDROME, SEE CARDIOLOGY H & P. History of Any Multi-Drug Resistant Organisms: MRSA Date of last positivie culture/infection: 11/25/20 MDRO Source:: Urine Past Surgical History: Ablation, Cardiac Ablation, Pacemaker Additional Past Surgical History / Comment(s): left eye surg., HEART CATHS X3, HEMORROIDECTOMY, SX FOR SLEEP APNEA, MOLE REMOVED LT LEG(BENIGN), CARDIAC ABLATION X2., [employer] Past Anesthesia/Blood Transfusion Reactions: Previous Problems w/ Anesthesia Additional Past Anesthesia/Blood Transfusion Reaction / Comment(s): STATES AFTER CARDIAC ABLATION "I DID NOT FEEL WELL, I COULD NOT THINK OR WALK" Type of Cardiac Device: Permanent Pacemaker Device Placement Date:: ?2016 Past Psychological History: Depression Smoking Status: Unknown if ever smoked Past Alcohol Use History: None Reported Additional Past Alcohol Use History / Comment(s): SMOKED X7 YEARS 2-3 PPD QUIT 1968 Past Drug Use History: None Reported - Past Family History Sister(s) Family Medical History: Cancer Additional Family Medical History / Comment(s): BREAST CANCER Father Additional Family Medical History / Comment(s): abdominal aneurysm Medications and Allergies Home Medications Medication Instructions Recorded Confirmed Type Atorvastatin [Lipitor] 40 mg PO HS 04/16/14 03/08/24 History Apixaban [Eliquis] 5 mg PO BID 08/29/19 03/08/24 History levETIRAcetam [Keppra] 750 mg PO BID 08/29/19 03/08/24 History Metoprolol Succinate [Toprol XL] 150 mg PO HS 02/25/22 03/08/24 History Ergocalciferol [Vitamin D2 (1250 1,250 mcg PO FR 03/08/24 03/08/24 History Mcg = 79870 Iu)] Losartan [Cozaar] 25 mg PO HS 03/08/24 03/08/24 History Triamterene-Hctz 37.5-25Mg 1 tab PO HS 03/08/24 03/08/24 History [Maxzide 37.5-25] Allergies Allergy/AdvReac Type Severity Reaction Status Date / Time peanut Allergy Dyspnea Verified 03/08/24 14:46 Physical Examination - Vital Signs Vital Signs: Vital Signs Temp Pulse Pulse Resp BP BP Pulse Ox 03/09/24 07:06 73 18 115/76 97 03/09/24 02:00 98.5 F 65 17 112/76 96 03/08/24 22:59 69 115/73 97 03/08/24 20:15 72 18 117/66 96 03/08/24 18:15 71 16 90/68 95 03/08/24 17:15 74 16 99/57 95 03/08/24 16:15 70 16 106/67 94 L 03/08/24 15:15 72 16 108/68 97 03/08/24 14:30 74 14 113/68 96 03/08/24 14:10 98 F 80 18 115/75 98 Intake and Output 03/08/24 03/09/24 03/09/24 22:59 06:59 14:59 Other: # Voids 1 Weight 117.934 kg GENERAL: The patient is lying in bed and is not in acute distress. NEUROLOGICAL: Higher mental function: The patient is awake, alert, oriented to self, place and time. Patient is following commands. No aphasia and no neglect. Cranial nerves: The pupils are round, equal and reactive to light. Primary gaze is out and up on left eye (baseline). Visual bennett are full to confrontation throughout. Extraocular movement is no nystagmus is noted. Facial sensation is normal to touch throughout. The facial strength is minimal right nasolabial flattening. Hearing is mildly decrease to touch bilaterally. Tongue is midline and moved [id number] without any difficulty. No dysarthria is noted. Shoulder shrug is normal bilaterally. Motor: The strength is 5 over 5 throughout. Normal tone and bulk. Cerebellum: Normal finger to nose bilaterally. Sensation: Sensation is normal to touch throughout. Reflexes (right/left): 2+ throughout except ankles. Plantars are mute bilaterally. Results - Laboratory Findings CBC and BMP: 03/08/24 14:32 03/09/24 04:44 Abnormal Lab Findings: Abnormal Labs 03/08/24 03/08/24 03/09/24 14:32 14:32 04:44 WBC 10.8 H Neutrophils # 8.4 H Sodium 136 L BUN 44 H 38.3 H Creatinine 1.81 H 1.7 H Est GFR (CKD-EPI) 40 L BUN/Creatinine Ratio 22.53 H Glucose 112 H Total Bilirubin 2.6 H Alkaline Phosphatase 167 H Assessment and Plan Assessment: this is an 84-year-old gentleman with history of seizure who presents from [facility] because of the speech problems. patient is giving inconsistent history in which she states that his speech problem has been going on once a month for the past few months that he notified the ED but he notified me that happened about 2 days ago. He states that in the past he had speech difficulty and that he was notified there were TIAs but when he followed up with Dr. Crenshaw his neurologist he notified him that those were seizures. Speech difficulty: Rule out acute/subacute stroke vs ?seizure History of seizures Atrial fibrillation on eliquis. Sick sinus syndromeHas pacemaker. Strabismus of left eye History of hypertension Plan: Patient is resumed on his home dose of Keppra 750 mg twice a day. Keppra level is ordered pending I ordered a routine EEG which will be completed the likely this Monday ordered the carotid duplex, 2D echo I ordered MRI the brain and unsure if the pacemaker is compatible and if it does not then we'll pursue with the repeat the CT head Patient had a recent TSH at the beginning of this month and was normal so therefore the no need for repeat I ordered vitamin B12, folate and ammonia level. Seizure precautions seizure pads patient is on home medication Eliquis 2.5mg bid and is started on ASA 325mg daily by ED team. from a neurologic perspective if repeat CT of the head is negative then consider holding aspirin because of increased risk of bleed especially with his age but will defer that decision to the primary team. continue neuro checks Regarding monitoring PT OT and PHOTOTYPESETTER OPERATOR are consulted we'll defer the rest of the medical measure the primary team for DVT prophylaxis on Eliquis Thank you for the consultation. Time with Patient: Greater than 30
--- NOTE | 2024-03-09 16:30 | P.HPIM ---
History of Present Illness H&P Date: 03/09/24 Chief Complaint: Low blood pressure Pleasant 84-year-old patient who follows with Dr. Bethany Pereyra. Phonic stable medical condition include essential hypertension, atrial fibrillation, seizure disorder, obstructive sleep apnea used to do CPAP prior to weight loss, seizure disorder, COVID, sick sinus syndrome with a pacemaker. Ablation. Patient does like to talk but states of unable to give a full history. Patient was at [facility] for therapy for depression was found to have blood pressure of 90/50. Some question about slurred speech and left-sided facial palsy. Patient was noted to have a very dry mouth. Patient will relate has been feeling tired. Also was added a diuretic a short time ago. Review of systems: GEN.: Tired EYES: None HEENT: Dry mouth e NECK: None RESPIRATORY: None CARDIOVASCULAR: None GASTROINTESTINAL: None GENITOURINARY: None MUSCULOSKELETAL: None LYMPHATICS: None HEMATOLOGICAL: None PSYCHIATRY: Bit forgetful e NEUROLOGICAL: Weakness in the arms or legs Social history: Uses a four-wheel walker. Lives at [facility]. Does not smoke. No alcohol. Physical examination: VITAL SIGNS: 98.5, 73, 18, 115/76, 97% room air GENERAL: BMI 35.3, reclining bed awake a bit anxious. EYES: Pupils equal. Conjunctiva libertad l. HEENT: External appearance of nose and ears normal, oral cavity dry mucous membrane. NECK: JVD not raised; masses not palpable. HEART: First and second heart sounds are normal; no edema. LUNGS: Respiratory rate normal; clear to auscultation. ABDOMEN: Soft, nontender, liver spleen not palpable, no masses palpable. PSYCH: [Alert and oriented x3; mood and affect a bit anxious l. MUSCULOSKELETAL:No Clubbing/cyanosis;muscles-grossly intact NEUROLOGICAL: Cranial nerves grossly intact; no facial asymmetry, power and sensation grossly intact. LYMPHATICS: No lymph nodes palpable in the axilla and neck INVESTIGATIONS, reviewed in the clinical context: March 09, 2024: Sodium 138 potassium 4.2 BUN 38.3 creatinine 1.7 March 08: White count 10.8 hemoglobin 17.1 platelets 214 sodium 136 potassium 4.7 BUN 44 creatinine 1.81 EKG tracing personally reviewed by me-normal sinus rhythm. Paced rhythm. PVC. Chest x-ray film personally reviewed by me-cardiomegaly. Pacemaker. CT brain without contrast: No acute process Carotid Doppler: No significant stenosis Previous labs: Creatinine 1.3 February 13, 2024. Creatinine 1.3 in 2019 Assessment plan: -Patient with episodes of change in speech. History is unclear. Apparently seen Dr. Shaw and he was told that the scope possible seizures. Patient does have a dry mouth in the setting of acute kidney injury. CT scan brain unremarkable. TIA workup in place. Neurology consulted. -Acute kidney injury could be prerenal from being on diuretic Patient creatinine was 1.3 on February 13, 2024 Maxide and Cozaar discontinued. IV fluids. Follow BMP. -Atrial fibrillation. Prior ablation. Dose of Toprol-XL was cut back because of relative hypotension on presentation. Toprol-XL 50 mg nightly start tonight Eliquis -Chronic kidney disease, stage III suspect nephrosclerosis Creatinine 1.3 back in 2017 -Essential hypertension Dose of Toprol-XL cut back because of relatively low blood pressure on presentation Hold Maxide. Hold Cozaar. -Epilepsy disorder Keppra 750 mg twice daily. Follows with Dr. Shaw outpatient ,-Permanent pacemaker -Full code Past Medical History Past Medical History: Atrial Fibrillation, Hypertension, Seizure Disorder, Sleep Apnea/CPAP/BIPAP Additional Past Medical History / Comment(s): QUIT USING C-PAP AFTER WT LOSS., BULDGING DISC'S , LAST SEIZURE 5-6 MONTHS AGO., HX OF COVID (NOV 2020)., SICK SINUS SYNDROME, SEE CARDIOLOGY H & P. History of Any Multi-Drug Resistant Organisms: MRSA Date of last positivie culture/infection: 11/25/20 MDRO Source:: Urine Past Surgical History: Ablation, Cardiac Ablation, Pacemaker Additional Past Surgical History / Comment(s): left eye surg., HEART CATHS X3, HEMORROIDECTOMY, SX FOR SLEEP APNEA, MOLE REMOVED LT LEG(BENIGN), CARDIAC ABLATION X2., [employer] Past Anesthesia/Blood Transfusion Reactions: Previous Problems w/ Anesthesia Additional Past Anesthesia/Blood Transfusion Reaction / Comment(s): STATES AFTER CARDIAC ABLATION "I DID NOT FEEL WELL, I COULD NOT THINK OR WALK" Type of Cardiac Device: Permanent Pacemaker Device Placement Date:: ?2017 Past Psychological History: Depression Smoking Status: Unknown if ever smoked Past Alcohol Use History: None Reported Additional Past Alcohol Use History / Comment(s): SMOKED X7 YEARS 2-3 PPD QUIT 1968 Past Drug Use History: None Reported - Past Family History Sister(s) Family Medical History: Cancer Additional Family Medical History / Comment(s): BREAST CANCER Father Additional Family Medical History / Comment(s): abdominal aneurysm Medications and Allergies Home Medications Medication Instructions Recorded Confirmed Type Atorvastatin [Lipitor] 40 mg PO HS 04/16/14 03/08/24 History Apixaban [Eliquis] 5 mg PO BID 08/29/19 03/08/24 History levETIRAcetam [Keppra] 750 mg PO BID 08/29/19 03/08/24 History Metoprolol Succinate [Toprol XL] 150 mg PO HS 02/25/22 03/08/24 History Ergocalciferol [Vitamin D2 (1250 1,250 mcg PO FR 03/08/24 03/08/24 History Mcg = 85128 Iu)] Losartan [Cozaar] 25 mg PO HS 03/08/24 03/08/24 History Triamterene-Hctz 37.5-25Mg 1 tab PO HS 03/08/24 03/08/24 History [Maxzide 37.5-25] Allergies Allergy/AdvReac Type Severity Reaction Status Date / Time peanut Allergy Dyspnea Verified 03/08/24 14:46 Physical Exam Vitals: Vital Signs Temp Pulse Pulse Resp BP BP Pulse Ox 03/09/24 07:06 73 18 115/76 97 03/09/24 02:00 98.5 F 65 17 112/76 96 03/08/24 22:59 69 115/73 97 03/08/24 20:15 72 18 117/66 96 03/08/24 18:15 71 16 90/68 95 03/08/24 17:15 74 16 99/57 95 03/08/24 16:15 70 16 106/67 94 L 03/08/24 15:15 72 16 108/68 97 03/08/24 14:30 74 14 113/68 96 03/08/24 14:10 98 F 80 18 115/75 98 Intake and Output 03/08/24 03/09/24 03/09/24 22:59 06:59 14:59 Other: # Voids 1 Weight 117.934 kg Results CBC & Chem 7: 03/08/24 14:32 03/09/24 04:44 Labs: Abnormal Lab Results - Last 24 Hours (Table) 03/08/24 03/08/24 Range/Units 14:32 14:32 WBC 10.8 H (3.8-10.6) k/uL Neutrophils # 8.4 H (1.3-7.7) k/uL Sodium 136 L (137-145) mmol/L BUN 44 H (9-20) mg/dL Creatinine 1.81 H (0.66-1.25) mg/dL Glucose 112 H (74-99) mg/dL Total Bilirubin 2.6 H (0.2-1.3) mg/dL Alkaline Phosphatase 167 H (38-126) U/L Thrombosis Risk Factor Assmnt - Choose All That Apply Any of the Below Risk Factors Present?: Yes Each Factor Represents 1 point: Obesity (BMI >25) Other Risk Factors: Yes Each Risk Factor Represents 3 Points: Age 75 years or older Other congenital or acquired thrombophilia - If yes, enter type in comment: No Thrombosis Risk Factor Assessment Total Risk Factor Score: 4 Thrombosis Risk Factor Assessment Level: Moderate Risk
[2024-03-09] MEDS: SODIUM CHLORIDE 0.9% 1,000 ML IV SCH (19:41)
[2024-03-09] MEDS: METOPROLOL SUCCINATE (ER) 50 MG TAB.ER.24H PO SCH (21:24)
--- NOTE | 2024-03-10 09:47 | CA ---
Transthoracic Echo Report Name: Sae Olea Age: 84 Gender: M : 1940 Exam Date: 03/09/2024 15:18 Exam Location: [place] [facility] Ht (in): 72 Wt (lb): 260 Ordering Physician: Dat Etienne MD Attending/Referring Phys: Oxygen Furnace Operator Cindy Price RDCS Procedure CPT: Indications: stroke Cardiac Hx: Technical Quality: Fair Contrast 1: Total Dose (mL): Contrast 2: Total Dose (mL): MEASUREMENTS (Male / Female) Normal Values 2D ECHO LV Diastolic Diameter PLAX 5.6 cm 4.2 - 5.9 / 3.9 - 5.3 cm LV Systolic Diameter PLAX 4.3 cm IVS Diastolic Thickness 1.3 cm 0.6 - 1.0 / 0.6 - 0.9 cm LVPW Diastolic Thickness 1.0 cm 0.6 - 1.0 / 0.6 - 0.9 cm LV Relative Wall Thickness 0.4 RV Internal Dim ED PLAX 3.6 cm LVOT Diameter 2.4 cm LV Diastolic Volume MOD BP 83.8 cm??? 67 - 155 / 56 - 104 cm??? LV Systolic Volume MOD BP 37.7 cm??? 22 - 58 / 19 - 49 cm??? LV Ejection Fraction MOD BP 55.1 % >= 55 % LV Cardiac Index MOD BP 1298.6 cm???/min???m??? LV Diastolic Volume MOD 4C 80.5 cm??? LV Systolic Volume MOD 4C 35.4 cm??? LV Ejection Fraction MOD 4C 56.1 % LV Cardiac Index MOD 4C 1270.4 cm???/min???m??? LV Diastolic Length 4C 7.0 cm LV Systolic Length 4C 6.3 cm LV Diastolic Volume MOD 2C 75.2 cm??? LV Systolic Volume MOD 2C 37.5 cm??? LV Ejection Fraction MOD 2C 50.0 % LV Cardiac Index MOD 2C 1058.4 cm???/min???m??? LV Diastolic Length 2C 8.1 cm LV Systolic Length 2C 7.0 cm LA Volume 59.4 cm??? 18 - 58 / 22 - 52 cm??? LA Volume Index 23.9 cm???/m??? 16 - 28 cm???/m??? DOPPLER AV Peak Velocity 98.5 cm/s AV Peak Gradient 3.9 mmHg AV Mean Velocity 59.3 cm/s AV Mean Gradient 1.7 mmHg AV Velocity Time Integral 15.1 cm LVOT Peak Velocity 82.0 cm/s LVOT Peak Gradient 2.7 mmHg LVOT Velocity Time Integral 14.5 cm LVOT Stroke Volume 65.5 cm??? LVOT Stroke Volume Index 27.5 ml/m??? LVOT Cardiac Index 1841.8 cm???/min???m??? AV Area Cont Eq vti 4.3 cm??? AV Area Cont Eq pk 3.8 cm??? MV Area PHT 3.8 cm??? Mitral E Point Velocity 71.5 cm/s Mitral A Point Velocity 29.2 cm/s Mitral E to A Ratio 2.5 MV Deceleration Time 200.8 ms TR Peak Velocity 224.0 cm/s TR Peak Gradient 20.1 mmHg PV Peak Velocity 82.9 cm/s PV Peak Gradient 2.8 mmHg FINDINGS Left Ventricle Left ventricular ejection fraction is estimated at 50-55%. Mildly increased septal wall thickness. Left ventricular cavity size normal. No obvious regional wall motion abnormalities. Right Ventricle Normal right ventricular size with mildly reduced function. Unable to estimate right ventricular systolic pressure. Right Atrium Right atrium not well visualized. Left Atrium Mildly increased left atrial volume. Mildly increased left atrial area. Mitral Valve Mitral valve thickened. Mitral annular calcification. No evidence for mitral valve prolapse. No mitral stenosis. Trace mitral regurgitation. Aortic Valve Trileaflet aortic valve. No aortic stenosis. No aortic regurgitation. Tricuspid Valve Structurally normal tricuspid valve. No tricuspid stenosis. Mild tricuspid regurgitation. Pulmonic Valve Pulmonic valve not well visualized. No pulmonic stenosis. No pulmonic regurgitation. Pericardium No pericardial effusion. Aorta Normal size aortic root and proximal ascending aorta. CONCLUSIONS Normal LV function Previewed by: Dr. Jon Malone MD (Electronically Signed) Final Date: 10 March 2024 09:46
--- NOTE | 2024-03-10 11:38 | P.PN ---
Subjective Progress Note Date: 03/10/24 I am following-up with patient and he feels he is doing good. Per nurse no further speech difficulty and patient seems at baseline. Objective - Vital Signs Vital signs: Vital Signs Temp 97.8 F 03/10/24 07:32 Pulse 70 03/10/24 07:32 Resp 17 03/10/24 07:32 BP 111/71 03/10/24 07:32 Pulse Ox 97 03/10/24 07:32 FiO2 Intake & Output 03/09/24 03/10/24 03/10/24 18:59 06:59 18:59 Other: # Voids 2 2 # Bowel Movements 0 - Exam GENERAL: The patient is lying in bed and is not in acute distress. NEUROLOGICAL: Higher mental function: The patient is awake, alert, oriented to self, place and time. Patient is following commands. No aphasia and no neglect. Cranial nerves: The pupils are round, equal and reactive to light. Primary gaze is out and up on left eye (baseline). Visual bennett are full to confrontation throughout. Extraocular movement is no nystagmus is noted. Facial sensation is normal to touch throughout. The facial strength is minimal right nasolabial flattening. Hearing is mildly decrease to touch bilaterally. Tongue is m idline and moved [id number] without any difficulty. No dysarthria is noted. Shoulder shrug is normal bilaterally. Motor: The strength is 5 over 5 throughout. Normal tone and bulk. Cerebellum: Normal finger to nose bilaterally. Sensation: Sensation is normal to touch throughout. Reflexes (right/left): 2+ throughout except ankles. Plantars are mute bilaterally. Some of the work-up during this hospital visit consisted of: sodium was recently one is 138 Creatinine is 1.81 on presentation Glucoses 112 Calcium is 8.9 AST ALT is within normal limits Vitamin B12: 463 Folate: 9.50 Ammonia <9 CT of the head is reported as no acute intracranial process. age-related involution and chronic microangiopathy. I personally reviewed the CT and there is no acute or subacute stroke. There is no bleed. Carotid duplex: No hemodynamically significant internal carotid artery stenosis on either side. 2D echo: Normal LV function. - Labs CBC & Chem 7: 03/08/24 14:32 03/09/24 04:44 Labs: Abnormal Lab Results - Last 24 Hours (Table) 03/09/24 Range/Units 04:44 BUN 38.3 H (9.0-27.0) mg/dL Creatinine 1.7 H (0.6-1.5) mg/dL Est GFR (CKD-EPI) 40 L (>=60) BUN/Creatinine Ratio 22.53 H (12.00-20.00) Ratio Assessment and Plan Assessment: this is an 84-year-old gentleman with history of seizure who [facility] the [facility] problems. patient is giving inconsistent history in which she states that his speech problem has been going on once a month for the past few months that he notified the ED but he notified me that happened about 2 days ago. He states that in the past he had speech difficulty and that he was notified there were TIAs but when he followed up with Dr. Crenshaw his neurologist he notified him that those were seizures. Speech difficulty that is reported: Rule out acute/subacute stroke vs ?seizure vs due to metabolic encephalopathy---currently speech is improved History of seizures Acute kidney injury Atrial fibrillation on eliquis. Sick sinus syndromeHas pacemaker. Strabismus of left eye History of hypertension Plan: Patient is resumed on his home dose of Keppra 750 mg twice a day. Keppra level is ordered pending I ordered a routine EEG which will be completed the likely this Monday Patient has pacemaker and not MRI compatible therefore, ordered repeat CT head. Patient had a recent TSH at the beginning of this month and was normal so therefore the no need for repeat Seizure precautions seizure pads patient is on home medication Eliquis 2.5mg bid and is started on ASA 325mg daily by ED team. from a neurologic perspective if repeat CT of the head is negative then consider holding aspirin because of increased risk of bleed especially with his age but will defer that decision to the primary team. continue neuro checks Regarding monitoring PT OT and PATTERN CHANGER are consulted we'll defer the rest of the medical measure the primary team for DVT prophylaxis on Eliquis The plan is discussed with patient and his nurse. Dr. Martínez will resume neurology service tomorrow A.M. Time with Patient: Less than 30
--- NOTE | 2024-03-10 12:46 | CT ---
EXAMINATION TYPE: CT brain wo con CT DLP: 1154.4 mGycm, Automated exposure control for dose reduction was used. DATE OF EXAM: 03/10/2024 12:30 PM COMPARISON: 03/08/2024. CLINICAL INDICATION:Male, 84 years old with history of slurred speech, TECHNIQUE: Brain: Axial CT images of the brain were obtained with coronal and sagittal reformats created and rev iewed. Contrast used: None. Oral contrast used: None. FINDINGS: Brain: Extra-axial spaces: No abnormal extra-axial fluid collections. Ventricular system: Within normal limits Cerebral parenchyma: No acute intraparenchymal hemorrhage or mass effect. The lindo-white junction is well differentiated. Cerebellum: Unremarkable. Mass effect: No evidence of midline shift. Intracranial vasculature: unremarkable Soft tissues: Normal. Calvarium/osseous structures: No depressed skull fracture. Paranasal sinuses and mastoid air cells: Mild scattered paranasal sinus disease. Visualized orbits: Orbital contents are intact. IMPRESSION: No acute intracranial process. No change from prior.
[2024-03-10 14:34] LABS: African American GFR (CKD) 63 (>60 ml/min/1.73 sqM); Anion Gap 7 mmol/L; Blood Urea Nitrogen 26 mg/dL (9-20); Calcium 8.2 mg/dL (8.4-10.2); Carbon Dioxide 22 mmol/L (22-30); Chloride 108 mmol/L (98-107); Glucose 111 mg/dL (74-99); Non-African American GFR(CKD) 54 (>60 ml/min/1.73 sqM); Potassium 4.1 mmol/L (3.5-5.1); Sodium 137 mmol/L (137-145)
--- NOTE | 2024-03-10 16:29 | P.PN ---
Progress Note - Text Progress Note Date: 03/10/24 Chief Complaint: Low blood pressure Pleasant 84-year-old patient who follows with Dr. Bethany Pereyra. Phonic stable medical condition include essential hypertension, atrial fibrillation, seizure disorder, obstructive sleep apnea used to do CPAP prior to weight loss, seizure disorder, COVID, sick sinus syndrome with a pacemaker. Ablation. Patient does like to talk but states of unable to give a full history. Patient was at [facility] for therapy for depression was found to have blood pressure of 90/50. Some question about slurred speech and left-sided facial palsy. Patient was noted to have a very dry mouth. Patient will relate has been feeling tired. Also was added a diuretic a short time ago. March 10: Feels a bit better. EEG ordered by neurology will be done tomorrow. Improvement in renal function. Eating well. Active Medications Acetaminophen (Acetaminophen Tab 325 Mg Tab) 650 mg PO Q6HR PRN PRN Reason: Mild Pain or Fever > 100.5 Apixaban (Apixaban 2.5 Mg Tablet) 2.5 mg PO BID [facility]; Protocol Last Admin: 03/10/24 09:15 Dose: 2.5 mg Aspirin (Aspirin 81 Mg) 81 mg PO DAILY [facility] Atorvastatin Calcium (Atorvastatin 40 Mg Tab) 40 mg PO [facility] Last Admin: 03/09/24 21:24 Dose: 40 mg Sodium Chloride (Saline 0.9%) 1,000 mls @ 75 mls/hr IV .[id number] [facility] Last Admin: 03/10/24 13:27 Dose: 75 mls/hr Levetiracetam (Levetiracetam 750 Mg Tab) 750 mg PO BID [facility] Last Admin: 03/10/24 09:15 Dose: 750 mg Metoprolol Succinate (Metoprolol Succinate (Er) 50 Mg Tab.Er.24h) 50 mg PO [facility] Last Admin: 03/09/24 21:24 Dose: 50 mg Naloxone HCl (Naloxone 0.4 Mg/Ml 1 Ml Vial) 0.2 mg IV Q2M PRN PRN Reason: Opioid Reversal Social history: Uses a four-wheel walker. Lives at [facility]. Does not smoke. No alcohol. Physical examination: VITAL SIGNS: 97.6, 70, 18, 107/65, 98% room air GENERAL: BMI 35.3, reclining bed awake, appears better EYES: Pupils equal. Conjunctiva libertad l. HEENT: External appearance of nose and ears normal, oral cavity dry mucous membrane. NECK: JVD not raised; masses not palpable. HEART: First and second heart sounds are normal; no edema. LUNGS: Respiratory rate normal; clear to auscultation. ABDOMEN: Soft, nontender, liver spleen not palpable, no masses palpable. PSYCH: [Alert and oriented x3; mood and affect a bit anxious l. MUSCULOSKELETAL:No Clubbing/cyanosis;muscles-grossly intact INVESTIGATIONS, reviewed in the clinical context: March 10: Potassium 4.1 BUN 26 creatinine 1.24 March 09, 2024: Sodium 138 potassium 4.2 BUN 38.3 creatinine 1.7 March 08: White count 10.8 hemoglobin 17.1 platelets 214 sodium 136 potassium 4.7 BUN 44 creatinine 1.81 EKG tracing personally reviewed by me-normal sinus rhythm. Paced rhythm. PVC. Chest x-ray film personally reviewed by me-cardiomegaly. Pacemaker. CT brain without contrast: No acute process Carotid Doppler: No significant stenosis Previous labs: Creatinine 1.3 February 13, 2024. Creatinine 1.3 in 2019 Assessment plan: -Patient with episodes of change in speech. History is unclear. Apparently seen Dr. Shaw and he was told that the scope possible seizures. Patient does have a dry mouth in the setting of acute kidney injury. CT scan brain unremarkable. TIA workup in place. Neurology following EEG pending for tomorrow -Acute kidney injury could be prerenal from being on diuretic: Improving creatinine was 1.3 on February 13, 2024 Admission creatinine 1.81 Maxide and Cozaar discontinued. IV fluids. Follow BMP. -Atrial fibrillation. Prior ablation. Dose of Toprol-XL was cut back because of relative hypotension on presentation. Toprol-XL 50 mg nightly Eliquis -Chronic kidney disease, stage III suspect nephrosclerosis Creatinine 1.3 back in 2017 -Essential hypertension Dose of Toprol-XL cut back because of relatively low blood pressure on presentation Hold Maxide. Hold Cozaar. -Epilepsy disorder Keppra 750 mg twice daily. Follows with Dr. Shaw outpatient ,-Permanent pacemaker -Full code Doing better. Pending EEG tomorrow. Repeat labs tomorrow. Hopefully discharge tomorrow. Past Medical History Past Medical History: Atrial Fibrillation, Hypertension, Seizure Disorder, Sleep Apnea/CPAP/BIPAP Additional Past Medical History / Comment(s): QUIT USING C-PAP AFTER WT LOSS., BULDGING DISC'S , LAST SEIZURE 5-6 MONTHS AGO., HX OF COVID (NOV 2020)., SICK SINUS SYNDROME, SEE CARDIOLOGY H & P. History of Any Multi-Drug Resistant Organisms: MRSA Date of last positivie culture/infection: 11/25/20 MDRO Source:: Urine Past Surgical History: Ablation, Cardiac Ablation, Pacemaker Additional Past Surgical History / Comment(s): left eye surg., HEART CATHS X3, HEMORROIDECTOMY, SX FOR SLEEP APNEA, MOLE REMOVED LT LEG(BENIGN), CARDIAC ABLATION X2., [employer] Past Anesthesia/Blood Transfusion Reactions: Previous Problems w/ Anesthesia Additional Past Anesthesia/Blood Transfusion Reaction / Comment(s): STATES AFTER CARDIAC ABLATION "I DID NOT FEEL WELL, I COULD NOT THINK OR WALK" Type of Cardiac Device: Permanent Pacemaker Device Placement Date:: ?2016 Past Psychological History: Depression Smoking Status: Unknown if ever smoked Past Alcohol Use History: None Reported Additional Past Alcohol Use History / Comment(s): SMOKED X7 YEARS 2-3 PPD QUIT 1967 Past Drug Use History: None Reported
[2024-03-10] MEDS: APIXABAN 5 MG TAB PO SCH (20:58)
[2024-03-11 05:00] LABS: African American GFR (CKD) 70 (>60 ml/min/1.73 sqM); Anion Gap 6 mmol/L; Blood Urea Nitrogen 24 mg/dL (9-20); Calcium 8.4 mg/dL (8.4-10.2); Carbon Dioxide 22 mmol/L (22-30); Chloride 109 mmol/L (98-107); Glucose 93 mg/dL (74-99); Non-African American GFR(CKD) 61 (>60 ml/min/1.73 sqM); Potassium 4.4 mmol/L (3.5-5.1); Sodium 137 mmol/L (137-145)
[2024-03-11 07:46] VITALS: BP 124/81; PULSE 73; RESP 17; TEMP 98.1
[2024-03-11] MEDS: ASPIRIN 81 MG PO SCH (09:17)
--- NOTE | 2024-03-11 20:40 | P.DS ---
Providers Date of admission: 03/08/24 16:46 Expected date of discharge: 03/11/24 Attending physician: Sebastian Sher Consults: 03/08/24 16:45 Consult Physician Urgent Consulting Provider: Dat Etienne Consult Reason/Comments: slurred speach Do you want consulting provider notified?: Yes Primary care physician: Bethany Pereyra [facility] Course: Chief Complaint: Low blood pressure Pleasant 84-year-old patient who follows with Dr. Bethany Pereyra. Phonic stable medical condition include essential hypertension, atrial fibrillation, seizure disorder, obstructive sleep apnea used to do CPAP prior to weight loss, seizure disorder, COVID, sick sinus syndrome with a pacemaker. Ablation. Patient does like to talk but states of unable to give a full history. Patient was at [facility] for therapy for depression was found to have blood pressure of 90/50. Some question about slurred speech and left-sided facial palsy. Patient was noted to have a very dry mouth. Patient will relate has been feeling tired. Also was added a diuretic a short time ago. March 10: Feels a bit better. EEG ordered by neurology will be done tomorrow. Improvement in renal function. Eating well. March 11: Patient doing well. All his symptoms now felt to be from acute kidney injury. Creatinine came down from 1.81 down to 1.13. Diuretic discontinued. Cozaar discontinued. Toprol-XL cut back to 50 mg nightly. Eliquis increased to 5 mg twice daily. Patient to follow-up with his neurologist Dr. Tierra Shaw. No need felt for EEG. Social history: Uses a four-wheel walker. Lives at [facility]. Does not smoke. No alcohol. Physical examination: VITAL SIGNS: 8.1, 73, 17, 124/81, 98% room air GENERAL: Comfortable EYES: Pupils equal. Conjunctiva libertad l. HEENT: External appearance of nose and ears normal, oral cavity dry mucous membrane. NECK: JVD not raised; masses not palpable. HEART: First and second heart sounds are normal; no edema. LUNGS: Respiratory rate normal; clear to auscultation. ABDOMEN: Soft, nontender, liver spleen not palpable, no masses palpable. PSYCH: [Alert and oriented x3; mood and affect very slight anxious. MUSCULOSKELETAL:No Clubbing/cyanosis;muscles-grossly intact INVESTIGATIONS, reviewed in the clinical context: March 11: Potassium 4.4 BUN 24 creatinine 1.13 March 08: White count 10.8 hemoglobin 17.1 platelets 214 sodium 136 potassium 4.7 BUN 44 creatinine 1.81 EKG tracing personally reviewed by me-normal sinus rhythm. Paced rhythm. PVC. Chest x-ray film personally reviewed by me-cardiomegaly. Pacemaker. CT brain without contrast: No acute process Carotid Doppler: No significant stenosis Previous labs: Creatinine 1.3 February 13, 2024. Creatinine 1.3 in 2018 Assessment plan: -Possible acute metabolic encephalopathy from acute kidney injury: Resolved -Acute kidney injury -ATN/prerenal from being on diuretic and Cozaar: Improving creatinine was 1.3 on February 13, 2024 Admission creatinine 1.81 Maxide and Cozaar discontinued. IV fluids. Follow BMP. -Atrial fibrillation. Prior ablation. Dose of Toprol-XL was cut back because of relative hypotension on presentation. Toprol-XL 50 mg nightly Eliquis -Chronic kidney disease, stage III suspect nephrosclerosis Creatinine 1.3 back in 2016 -Essential hypertension Dose of Toprol-XL cut back because of relatively low blood pressure on pres entation Side and Cozaar discontinued -Epilepsy disorder Keppra 750 mg twice daily. Follows with Dr. Shaw outpatient ,-Permanent pacemaker -Full code Disposition: [facility] Past Medical History Past Medical History: Atrial Fibrillation, Hypertension, Seizure Disorder, Sleep Apnea/CPAP/BIPAP Additional Past Medical History / Comment(s): QUIT USING C-PAP AFTER WT LOSS., BULDGING DISC'S , LAST SEIZURE 5-6 MONTHS AGO., HX OF COVID (NOV 2020)., SICK SINUS SYNDROME, SEE CARDIOLOGY H & P. History of Any Multi-Drug Resistant Organisms: MRSA Date of last positivie culture/infection: 11/25/20 MDRO Source:: Urine Past Surgical History: Ablation, Cardiac Ablation, Pacemaker Additional Past Surgical History / Comment(s): left eye surg., HEART CATHS X3, HEMORROIDECTOMY, SX FOR SLEEP APNEA, MOLE REMOVED LT LEG(BENIGN), CARDIAC ABLATION X2., [employer] Past Anesthesia/Blood Transfusion Reactions: Previous Problems w/ Anesthesia Additional Past Anesthesia/Blood Transfusion Reaction / Comment(s): STATES AFTER CARDIAC ABLATION "I DID NOT FEEL WELL, I COULD NOT THINK OR WALK" Type of Cardiac Device: Permanent Pacemaker Device Placement Date:: ?2016 Past Psychological History: Depression Smoking Status: Unknown if ever smoked Past Alcohol Use History: None Reported Additional Past Alcohol Use History / Comment(s): SMOKED X7 YEARS 2-3 PPD QUIT 1968 Past Drug Use History: None Reported Plan - Discharge Summary Discharge Rx Participant: No New Discharge Prescriptions: New Aspirin 81 mg PO DAILY tab Metoprolol Succinate (ER) [Toprol XL] 50 mg PO HS #30 tab Continue Atorvastatin [Lipitor] 40 mg PO HS levETIRAcetam [Keppra] 750 mg PO BID Apixaban [Eliquis] 5 mg PO BID Ergocalciferol [Vitamin D2 (1250 Mcg = 99031 Iu)] 1,250 mcg PO FR Discontinued Metoprolol Succinate [Toprol XL] 150 mg PO HS Triamterene-Hctz 37.5-25Mg [Maxzide 37.5-25] 1 tab PO HS Losartan [Cozaar] 25 mg PO HS Discharge Medication List Atorvastatin [Lipitor] 40 mg PO HS 04/16/14 [History] Apixaban [Eliquis] 5 mg PO BID 08/29/19 [History] levETIRAcetam [Keppra] 750 mg PO BID 08/29/19 [History] Ergocalciferol [Vitamin D2 (1250 Mcg = 82388 Iu)] 1,250 mcg PO FR 03/08/24 [History] Aspirin 81 mg PO DAILY tab 03/11/24 [Rx] Metoprolol Succinate (ER) [Toprol XL] 50 mg PO HS #30 tab 03/11/24 [Rx] Follow up Appointment(s)/Referral(s): Walker Crenshaw MD [REFERRING] - 04/03/24 12:50 pm Bethany Pereyra MD [Primary Care Provider] - 1-2 days Patient Instructions/Handouts: Seizure/Epilepsy Discharge Instructions & Follow-Up, Acute Kidney Injury (DC) Activity/Diet/Wound Care/Special Instructions: dc when cleared by neurology. Per Dr. Martínez, Neurology will follow up with you on results of your EEG, if needed. Discharge Disposition: HOME SELF-CARE
--- NOTE | 2024-03-11 23:32 | EEG ---
ELECTROENCEPHALOGRAM REPORT PREAMBLE: This is an 84-year-old male with slurred speech, rule out any seizure. CURRENT MEDICATIONS: 1. Eliquis. 2. Aspirin. 3. Keppra. 4. Toprol. 5. Lipitor. EEG FINDINGS: This is a 21-channel digital EEG recorded with video component, utilizing 10/20 international system with referential and bipolar montages. Background consists of well developed, well regulated, low amplitude activity in 9 hertz alpha. Background is posterior dominant and reactive to eye opening and closing. Photic stimulation and hyperventilation were not performed. Drowsiness was seen with appearance of symmetric theta frequency rhythm. Deeper stages of sleep were not seen. No focal or generalized epileptiform activity was seen. IMPRESSION: This is a normal awake and drowsy EEG. No focal, lateralized, or epileptiform activity was seen. MMLILI / GENON: [id number] /
== END 2024-03-11 14:36 | disposition home or self-care (01) | DRG 682 ==
LOC: EC 14:09 → 4SSUR 16:46
PROVIDERS: ADMIT Hospitalist; ATTEND Hospitalist
DX: N17.0 Acute kidney failure with tubular necrosis (principal); G93.41 Metabolic encephalopathy; I49.5 Sick sinus syndrome; I48.91 Unspecified atrial fibrillation; H50.9 Unspecified strabismus; G47.33 Obstructive sleep apnea (adult) (pediatric); G40.909 Epilepsy, unspecified, not intractable, without status epilepticus; F32.A Depression, unspecified; N18.30 Chronic kidney disease, stage 3 unspecified; I12.9 Hypertensive chronic kidney disease with stage 1 through stage 4 chronic kidney disease, or unspecified chronic kidney disease; R47.81 Slurred speech; Z79.01 Long term (current) use of anticoagulants; Z79.82 Long term (current) use of aspirin; Z79.899 Other long term (current) drug therapy; Z80.3 Family history of malignant neoplasm of breast; Z86.16 Personal history of COVID-19; Z95.0 Presence of cardiac pacemaker; Z91.010 Allergy to peanuts
CPT/HCPCS: 36415; 70450; 71046; 80048; 80053; 80177; 82140; 82550; 82607; 82746; 85025; 85610; 85730; 93005; 93306; 93880; 95816; 96360; 96361; 99285

== ENCOUNTER 2024-11-08 10:20 | Emergency (ER) | payer MEDICARE ==
[2024-11-08 10:28] VITALS: RESP 18
--- NOTE | 2024-11-08 11:09 | ED ---
Nausea/Vomiting/Diarrhea HPI - General Chief complaint: Nausea/Vomiting/Diarrhea Stated complaint: Diarrhea Time Seen by Provider: 11/08/24 11:08 Source: patient, RN notes reviewed Mode of arrival: ambulatory Limitations: no limitations - History of Present Illness Initial comments: 84-year-old male presenting for diarrhea x 3 days. Admits about 1-2 episodes of watery diarrhea that occur randomly throughout the day. Denies abdominal pain, nausea, vomiting, fever. States before this occurred he ate a spicy hotdog at a restaurant. Denies recent travel. Denies recent antibiotic use or medication changes. He has a history of a cardiac stent, pacemaker, and multiple cardiac ablations. - Related Data Home Medications Medication Instructions Recorded Confirmed Atorvastatin [Lipitor] 40 mg PO HS 04/16/03/08/24 Apixaban [Eliquis] 5 mg PO BID 08/29/19 03/08/24 levETIRAcetam [Keppra] 750 mg PO BID 08/29/19 03/08/24 Ergocalciferol [Vitamin D2 (1250 1,250 mcg PO FR 03/08/24 03/08/24 Mcg = 82650 Iu)] Previous Rx's Medication Instructions Recorded Aspirin 81 mg PO DAILY tab 03/11/24 Metoprolol Succinate (ER) [Toprol 50 mg PO HS #30 tab 03/11/24 XL] Loperamide [Imodium] 4 mg PO ONCE PRN #15 capsule 11/08/24 Allergies Allergy/AdvReac Type Severity Reaction Status Date / Time peanut Allergy Dyspnea Verified 11/08/24 10:24 Review of Systems ROS Statement: Those systems with pertinent positive or pertinent negative responses have been documented in the HPI. ROS Other: All systems not noted in ROS Statement are negative. Past Medical History Past Medical History: Atrial Fibrillation, Hypertension, Seizure Disorder, Sleep Apnea/CPAP/BIPAP Additional Past Medical History / Comment(s): QUIT USING C-PAP AFTER WT LOSS., BULDGING DISC'S , LAST SEIZURE 5-6 MONTHS AGO., HX OF COVID (NOV 2020)., SICK SINUS SYNDROME, SEE CARDIOLOGY H & P. History of Any Multi-Drug Resistant Organisms: MRSA Date of last positivie culture/infection: 11/25/20 MDRO Source:: Urine Past Surgical History: Ablation, Cardiac Ablation, Pacemaker Additional Past Surgical History / Comment(s): left eye surg., HEART CATHS X3, HEMORROIDECTOMY, SX FOR SLEEP APNEA, MOLE REMOVED LT LEG(BENIGN), CARDIAC ABLATION X2., [employer] Past Anesthesia/Blood Transfusion Reactions: Previous Problems w/ Anesthesia Additional Past Anesthesia/Blood Transfusion Reaction / Comment(s): STATES AFTER CARDIAC ABLATION "I DID NOT FEEL WELL, I COULD NOT THINK OR WALK" Type of Cardiac Device: Permanent Pacemaker Device Placement Date:: ?2017 Past Psychological History: Depression Smoking Status: Former smoker Past Alcohol Use History: None Reported Past Drug Use History: None Reported - Past Family History Sister(s) Family Medical History: Cancer Additional Family Medical History / Comment(s): BREAST CANCER Father Additional Family Medical History / Comment(s): abdominal aneurysm General Exam Limitations: no limitations General appearance: alert, in no apparent distress Head exam: Present: atraumatic, normocephalic, normal inspection ENT exam: Present: normal exam, mucous membranes moist GI/Abdominal exam: Present: soft, normal bowel sounds. Absent: distended, tenderness, guarding, rebound, rigid Neurological exam: Present: alert, oriented X3 Psychiatric exam: Present: normal affect, normal mood Skin exam: Present: warm, dry, intact, normal color. Absent: rash Course Vital Signs 11/08/24 10:24 Temperature 97.6 F Pulse Rate 82 Respiratory 18 Rate Blood Pressure 115/71 O2 Sat by Pulse 97 Oximetry Medical Decision Making - Medical Decision Making Was pt. sent in by a medical professional or institution (, PA, DEVELOPMENTAL THERAPIST, urgent care, hospital, or usp...) When possible be specific @ -No Did you speak to anyone other than the patient for history (EMS, parent, family, police, friend...)? What history was obtained from this source @ -No Did you review nursing and triage notes (agree or disagree)? Why? @ -I reviewed and agree with nursing and triage notes Were old charts reviewed (outside hosp., previous admission, EMS record, old EKG, old radiological studies, urgent care reports/EKG's, usp records)? Report findings @ -No old charts were reviewed Differential Diagnosis (chest pain, altered mental status, abdominal pain women, abdominal pain men, vaginal bleeding, weakness, fever, dyspnea, syncope, headache, dizziness, GI bleed, back pain, seizure, CVA, palpatations, mental health, musculoskeletal)? @ -Infectious diarrhea, viral gastroenteritis, food poisoning, Appendicitis, cholecystitis, diverticulosis, ischemic bowel, pancreatitis, hepatitis, UTI, gastroenteritis, AAA, incarcerated hernia, bowel obstruction, constipation, inflammatory bowel, hepatitis, peptic ulcer disease, splenic infarction, perforated viscus, testicular torsion, this is not meant to be an all-inclusive list EKG interpreted by me (3pts min.). @ -None X-rays interpreted by me (1pt min.). @ -None done CT interpreted by me (1pt min.). @ -None done U/S interpreted by me (1pt. min.). @ -None done What testing was considered but not performed or refused? (CT, X-rays, U/S, labs)? Why? @ -None What meds were considered but not given or refused? Why? @ -None Did you discuss the management of the patient with other professionals (professionals i.e. , PA, DEVELOPMENTAL THERAPIST, lab, RT, psych nurse, 7th grade social studies teacher, barrel centerer, te acher, quality officer, case manager specialist)? Give summary @ -No Was smoking cessation discussed for >3mins.? @ -No Was critical care preformed (if so, how long)? @ -No Were there social determinants of health that impacted care today? How? (Homelessness, low income, unemployed, alcoholism, drug addiction, transportation, low edu. Level, literacy, decrease access to med. care, fdc, rehab)? @ -No Was there de-escalation of care discussed even if they declined (Discuss DNR or withdrawal of care, Hospice)? DNR status @ -No What co-morbidities impacted this encounter? (DM, HTN, Smoking, COPD, CAD, Cancer, CVA, ARF, Chemo, Hep., AIDS, mental health diagnosis, sleep apnea, morbid obesity)? @ -None Was patient admitted / discharged? Hospital course, mention meds given and route, prescriptions, significant lab abnormalities, going to OR and other pertinent info. @ -Discharge. 84-year-old male with diarrhea x 3 days. No red flag symptoms. Abdomen soft and nontender. Lab work largely unremarkable. Patient is provided with 1 L of IV fluids. White blood cell count stable at 9. Urinalysis remarka ble for 4+ glucose, negative for ketones. Discussed results with patient. Discussed diagnosis of viral gastroenteritis with patient. Provided with Imodium to take as needed. Appropriate return precautions and supportive care/follow-up care discussed and patient is agreeable to plan. Case was di scussed with my ED attending Dr. Dover. Undiagnosed new problem with uncertain prognosis? @ -No Drug Therapy requiring intensive monitoring for toxicity (Heparin, Nitro, Insulin, Cardizem)? @ -No Were any procedures done? @ -No Diagnosis/symptom? @ -Viral gastroenteritis Acute, or Chronic, or Acute on Chronic? @ -Acute Uncomplicated (without systemic symptoms) or Complicated (systemic symptoms)? @ -Uncomplicated Side effects of treatment? @ -No Exacerbation, Progression, or Severe Exacerbation? @ -No Poses a threat to life or bodily function? How? (Chest pain, USA, NV, pneumonia, PE, COPD, DKA, ARF, appy, cholecystitis, CVA, Diverticulitis, Homicidal, Suicidal, threat to staff... and all critical care pts) @ -No - Lab Data Result diagrams: 11/08/24 11:11 11/08/24 11:11 Lab Results 11/08/24 11/08/24 11/08/24 Range/Units 11:11 11:11 11:11 WBC 9.3 (3.8-10.6) k/uL RBC 4.54 (4.30-5.90) m/uL Hgb 15.0 (13.0-17.5) gm/dL Hct 44.8 (39.0-53.0) % MCV 98.8 (80.0-100.0) fL MCH 33.2 (25.0-35.0) pg MCHC 33.6 (31.0-37.0) g/dL RDW 12.6 (11.5-15.5) % Plt Count 237 (150-450) k/uL MPV 9.0 Neutrophils % 76 % Lymphocytes % 11 % Monocytes % 8 % Eosinophils % 4 % Basophils % 0 % Neutrophils # 7.1 (1.3-7.7) k/uL Lymphocytes # 1.0 (1.0-4.8) k/uL Monocytes # 0.7 (0-1.0) k/uL Eosinophils # 0.3 (0-0.7) k/uL Basophils # 0.0 (0-0.2) k/uL Sodium 137 (137-145) mmol/L Potassium 3.8 (3.5-5.1) mmol/L Chloride 112 H (98-107) mmol/L Carbon Dioxide 19 L (22-30) mmol/L Anion Gap 6 mmol/L BUN 20 (9-20) mg/dL Creatinine 1.17 (0.66-1.25) mg/dL Est GFR (CKD-EPI)AfAm 67 (>60 ml/min/1.73 sqM) Est GFR (CKD-EPI)NonAf 58 (>60 ml/min/1.73 sqM) Glucose 96 (74-99) mg/dL Plasma Lactic Acid Eric (0.7-2.0) mmol/L Calcium 8.6 (8.4-10.2) mg/dL Total Bilirubin 2.4 H (0.2-1.3) mg/dL AST 29 (17-59) U/L ALT 12 (4-49) U/L Alkaline Phosphatase 123 (38-126) U/L Total Protein 6.4 (6.3-8.2) g/dL Albumin 3.4 L (3.5-5.0) g/dL Urine Color Yellow Urine Appearance Clear (Clear) Urine pH 5.5 (5.0-8.0) Ur Specific [place] 1.033 (1.001-1.035) Urine Protein Trace H (Negative) Urine Glucose (UA) 4+ H (Negative) Urine Ketones Negative (Negative) Urine Blood Trace H (Negative) Urine Nitrite Negative (Negative) Urine Bilirubin Negative (Negative) Urine Urobilinogen <2.0 (<2.0) mg/dL Ur Leukocyte Esterase Negative (Negative) Urine RBC 2 (0-5) /hpf Urine WBC 2 (0-5) /hpf Ur Squamous Epith Cells <1 (0-4) /hpf Urine Mucus Few H (None) /hpf 11/08/24 Range/Units 11:11 WBC (3.8-10.6) k/uL RBC (4.30-5.90) m/uL Hgb (13.0-17.5) gm/dL Hct (39.0-53.0) % MCV (80.0-100.0) fL MCH (25.0-35.0) pg MCHC (31.0-37.0) g/dL RDW (11.5-15.5) % Plt Count (150-450) k/uL MPV Neutrophils % % Lymphocytes % % Monocytes % % Eosinophils % % Basophils % % Neutrophils # (1.3-7.7) k/uL Lymphocytes # (1.0-4.8) k/uL Monocytes # (0-1.0) k/uL Eosinophils # (0-0.7) k/uL Basophils # (0-0.2) k/uL Sodium (137-145) mmol/L Potassium (3.5-5.1) mmol/L Chloride (98-107) mmol/L Carbon Dioxide (22-30) mmol/L Anion Gap mmol/L BUN (9-20) mg/dL Creatinine (0.66-1.25) mg/dL Est GFR (CKD-EPI)AfAm (>60 ml/min/1.73 sqM) Est GFR (CKD-EPI)NonAf (>60 ml/min/1.73 sqM) Glucose (74-99) mg/dL Plasma Lactic Acid Eric 1.5 (0.7-2.0) mmol/L Calcium (8.4-10.2) mg/dL Total Bilirubin (0.2-1.3) mg/dL AST (17-59) U/L ALT (4-49) U/L Alkaline Phosphatase (38-126) U/L Total Protein (6.3-8.2) g/dL Albumin (3.5-5.0) g/dL Urine Color Urine Appearance (Clear) Urine pH (5.0-8.0) Ur Specific [place] (1.001-1.035) Urine Protein (Negative) Urine Glucose (UA) (Negative) Urine Ketones (Negative) Urine Blood (Negative) Urine Nitrite (Negative) Urine Bilirubin (Negative) Urine Urobilinogen (<2.0) mg/dL Ur Leukocyte Esterase (Negative) Urine RBC (0-5) /hpf Urine WBC (0-5) /hpf Ur Squamous Epith Cells (0-4) /hpf Urine Mucus (None) /hpf Disposition Clinical Impression: Viral gastroenteritis Disposition: HOME SELF-CARE Condition: Stable Instructions (If sedation given, give patient instructions): Gastroenteritis (ED) Additional Instructions: Take loperamide as needed for diarrhea. Drink plenty of fluids. Please return to the Emergency Department if symptoms worsen or any other concerns. Prescriptions: Loperamide [Imodium] 4 mg PO ONCE PRN #15 capsule PRN Reason: Diarrhea Is patient prescribed a controlled substance at d/c from ED?: No Referrals: Bethany Pereyra MD [Primary Care Provider] - 1-2 days Time of Disposition: 13:38
[2024-11-08] MEDS: SODIUM CHLORIDE 0.9% 1,000 ML IV STA (11:26)
[2024-11-08 11:50] LABS: Basophils % (A) 0 %; Eosinophils # (A) 0.3 k/uL (0-0.7); Eosinophils % (A) 4 %; HCT 44.8 % (39.0-53.0); Lymphocytes % (A) 11 %; MCH 33.2 pg (25.0-35.0); MCHC 33.6 g/dL (31.0-37.0); MCV 98.8 fL (80.0-100.0); Monocytes # (A) 0.7 k/uL (0-1.0); Monocytes % (A) 8 %; Neutrophils # (A) 7.1 k/uL (1.3-7.7); Neutrophils % (A) 76 %; Platelet Count 237 k/uL (150-450); RBC 4.54 m/uL (4.30-5.90); RDW 12.6 % (11.5-15.5); WBC 9.3 k/uL (3.8-10.6)
[2024-11-08 12:14] LABS: ALT 12 U/L (4-49); AST 29 U/L (17-59); African American GFR (CKD) 67 (>60 ml/min/1.73 sqM); Albumin 3.4 g/dL (3.5-5.0); Alkaline Phosphatase 123 U/L (38-126); Anion Gap 6 mmol/L; Blood Urea Nitrogen 20 mg/dL (9-20); Calcium 8.6 mg/dL (8.4-10.2); Carbon Dioxide 19 mmol/L (22-30); Chloride 112 mmol/L (98-107); Glucose 96 mg/dL (74-99); Non-African American GFR(CKD) 58 (>60 ml/min/1.73 sqM); Potassium 3.8 mmol/L (3.5-5.1); Sodium 137 mmol/L (137-145); Total Bilirubin 2.4 mg/dL (0.2-1.3); Total Protein 6.4 g/dL (6.3-8.2)
[2024-11-08 12:46] LABS: Appearance,Urine Clear (Clear); Bilirubin,Urine Negative (Negative); Blood,Urine Trace (Negative); Color,Urine Yellow; Glucose,Urine (UA) 4+ (Negative); Ketones,Urine Negative (Negative); Leukocyte Esterase,Urine Negative (Negative); Mucus,Urine Few /hpf; Nitrite,Urine Negative (Negative); PH, Urine 5.5 (5.0-8.0); Protein,Urine Trace (Negative); RBC,Urine 2 /hpf (0-5); Specific Gravity,Urine 1.033 (1.001-1.035); Squamous Epithelial Cell,Urine <1 /hpf (0-4); Urobilinogen,Urine <2.0 mg/dL (<2.0); WBC,Urine 2 /hpf (0-5)
[2024-11-08 14:29] VITALS: TEMP 97.7
[2024-11-08 14:30] VITALS: BP 118/82; PULSE 80
== END 2024-11-08 14:29 | disposition home or self-care (01) ==
LOC: EC 10:20
DX: A08.4 Viral intestinal infection, unspecified (principal); Z87.891 Personal history of nicotine dependence; Z86.16 Personal history of COVID-19; Z91.010 Allergy to peanuts
CPT/HCPCS: 36415; 80053; 81001; 83605; 85025; 96360; 99284

== ENCOUNTER 2025-03-21 10:41 | Emergency (ER) | payer MEDICARE ==
--- NOTE | 2025-03-21 11:15 | XR ---
EXAMINATION TYPE: XR chest 2V DATE OF EXAM: 03/21/2025 11:08 AM COMPARISON: Chest radiographs from 03/08/2024 TECHNIQUE: XR chest 2V Frontal and lateral views of the chest. CLINICAL INDICATION:Male, 85 years old with history of Weakness; FINDINGS: Lungs/Pleura: No pleural effusion or pneumothorax. Bibasilar patchy airspace opacities. Hyperinflatio n with flattening of the hemidiaphragms. Pulmonary vascularity: Unremarkable. Heart/mediastinum: Cardiomediastinal silhouette is enlarged and stable. Three lead cardiac conduction device overlying the left hemithorax with lead tips projecting over the right ventricle, right atriu m and coronary sinus. Musculoskeletal: Multiple level degenerative disc disease changes seen throughout the spine. IMPRESSION: 1. Bibasilar airspace opacities concerning for pneumonia. 2. COPD changes. [facility], , 03/21/2025 11:12 AM
--- NOTE | 2025-03-21 11:21 | CT ---
EXAMINATION TYPE: CT brain cspine wo con, CT facial bones wo con CT DLP: 1534.5 mGycm, Automated exposure control for dose reduction was used. DATE OF EXAM: 03/21/2025 11:10 AM COMPARISON: Multiple CT brain with most recent 03/10/2024. CLINICAL INDICATION:Male, 85 years old with history of weakness; Fall, bruising to Rt eye, pain TECHNIQUE: Brain: Multiple axial CT images of the brain were obtained without IV contrast. Cspine: Axial CT images from the skull base to the inferior aspect of T2 we obtained without intraven ous contrast. Coronal and sagittal reformatted images were also reviewed. Facial bones; axial CT images of the facial bones were obtained without contrast and soft tissue and bone windows. Coronal and sagittal reformatted images were also reviewed. FINDINGS: Brain: Extra-axial spaces: No abnormal extra-axial fluid collections. Ventricular system: Within normal limits Cerebral parenchyma: Moderate diffuse cerebral atrophy. No acute intraparenchymal hemorrhage or mass effect. The lindo-white junction is well differentiated. Scattered hypoattenuating areas are seen wit hin the periventricular white matter. Cerebellum: Unremarkable. Mass effect: No evidence of midline shift. Intracranial vasculature: unremarkable Soft tissues: Normal. Calvarium: No depressed skull fracture. Visualized orbits: Orbital contents are intact. Cervical spine: Fracture: None. Osseous structures: Multilevel degenerative disc disease changes with endplate spurring and disc oste ophyte complex's. Vertebral alignment: Within normal limits. Spinal canal/Neural Foramina: Disc osteophyte complexes at C3-C4, C4-C5, C5-C6, C6-C7 and C7-T1 with at least mild spinal canal stenosis. Facet joint uncovertebral joint arthropathy scattered throughout the cervical spine with varying degrees of neural foraminal stenosis. Neck soft tissues: Prevertebral soft tissues are within normal limits. Other: The airway is patent. The lung apices are clear. Partial visualization of cardiac pacemaker le ads. Facial Bones: Dental mild increase streak artifact which limits evaluation. There is no evidence of fracture, subluxation, dislocation, or significant soft tissue swelling. The orbital contents are unremarkable. The temporal-mandibular joints appear symmetric. The mastoid air c ells are clear. Mild mucosal thickening in the inferior left maxillary sinus. The remaining paranasal sinuses are clear. IMPRESSION: 1. No acute intracranial process. 2. Nonspecific white matter changes, likely secondary to chronic small vessel ischemic disease. 3. No acute facial bone fracture. 4. No evidence of cervical spine fracture. 5. Moderate multilevel degenerative disc disease. [facility], , 03/21/2025 11:19 AM
[2025-03-21] MEDS: SODIUM CHLORIDE 0.9% 1,000 ML IV ONE (11:28)
[2025-03-21 11:38] LABS: Basophils # (A) 0.03 10*3/uL (0.00-0.10); Basophils % (A) 0.7 %; Eosinophils # (A) 0.01 10*3/uL (0.04-0.35); Eosinophils % (A) 0.2 %; HCT 41.4 % (39.6-50.0); HGB 14.3 g/dL (13.0-17.0); Lymphocytes # (A) 0.71 10*3/uL (0.90-5.00); Lymphocytes % (A) 16.9 %; MCHC 34.5 g/dL (32.0-37.0); MCV 95.6 fL (80.0-97.0); Mean Platelet Volume 9.7 fL (9.5-12.2); Monocytes # (A) 0.82 10*3/uL (0.20-1.00); Monocytes % (A) 19.6 %; Neutrophils # (A) 2.61 10*3/uL (1.80-7.70); Neutrophils % (A) 62.4 %; Platelet Count 176 10*3/uL (140-440); RBC 4.33 10*6/uL (4.40-5.60); RDW 12.7 % (11.5-14.5); WBC 4.19 10*3/uL (4.50-10.00)
[2025-03-21 11:58] LABS: INR 1.2 (<1.2); Partial Thromboplastin Time 32.2 sec (22.0-30.0); Prothrombin Time 12.8 sec (10.0-12.5)
[2025-03-21 12:10] LABS: ALT 13 U/L (4-49); African American GFR (CKD) 86 (>60 ml/min/1.73 sqM); Albumin 3.1 g/dL (3.5-5.0); Anion Gap 6 mmol/L; Blood Urea Nitrogen 14 mg/dL (9-20); Calcium 8.3 mg/dL (8.4-10.2); Carbon Dioxide 22 mmol/L (22-30); Chloride 107 mmol/L (98-107); Glucose 111 mg/dL (74-99); Non-African American GFR(CKD) 74 (>60 ml/min/1.73 sqM); Sodium 135 mmol/L (137-145); Total Bilirubin 2.3 mg/dL (0.2-1.3); Total Protein 6.1 g/dL (6.3-8.2)
[2025-03-21 12:11] LABS: Magnesium 1.8 mg/dL (1.6-2.3); Potassium 3.9 mmol/L (3.5-5.1)
[2025-03-21 12:12] LABS: AST 41 U/L (17-59); Alkaline Phosphatase 133 U/L (38-126)
[2025-03-21 13:15] LABS: Influenza A Not Detected (Not Detectd); Influenza B Not Detected (Not Detectd); RSV Not Detected (Not Detectd)
--- NOTE | 2025-03-21 13:16 | ED ---
General Adult HPI - General Chief complaint: Weakness Stated complaint: weakness Time Seen by Provider: 03/21/25 10:45 Source: patient, EMS, RN notes reviewed, old records reviewed Mode of arrival: EMS - History of Present Illness Initial comments: Patient is a 85-year-old male presents emergency department as a code coag. He is on blood thinners. Fell at his nursing facility at approximately 2300 last night. He has a history of A-fib on blood thinners, hypertension, seizure disorder. Currently acting normally. Patient occasionally gets intermittent dysarthria and may have had it with EMS however does not seem to have it now. Has no other acute complaints at this time. Has been having a cough. Concern for possible fevers at nursing facility as well as with EMS. Presents for further evaluation. - Related Data Home Medications Medication Instructions Recorded Confirmed Atorvastatin [Lipitor] 40 mg PO HS 04/16/14 03/21/25 Apixaban [Eliquis] 5 mg PO BID 08/29/19 03/21/25 levETIRAcetam [Keppra] 750 mg PO BID 08/29/19 03/21/25 Cholecalciferol (Vitamin D3) 50 mcg PO DAILY 03/21/25 03/21/25 [Vitamin D3 (50 Mcg = 2000 Iu) Chew Tab] Losartan [Cozaar] 25 mg PO HS 03/21/25 03/21/25 Previous Rx's Medication Instructions Recorded Metoprolol Succinate (ER) [Toprol 50 mg PO HS #30 tab 03/11/24 XL] Amoxic-Pot Clav 875-125Mg 1 tab PO Q12HR 7 Days #14 tab 03/21/25 [Augmentin 875-125] Allergies Allergy/AdvReac Type Severity Reaction Status Date / Time peanut Allergy Dyspnea Verified 03/21/25 11:42 Review of Systems ROS Statement: Those systems with pertinent positive or pertinent negative responses have been documented in the HPI. Review of Systems: CONST: Denies fever EYES: Denies blurry vision ENT: Denies nasal congestion C/V: Denies Chest pain RESP: Denies shortness of breath GI: Denies abdominal pain : Denies dysuria SKIN: Denies rash. MSK: Denies joint pain. NEURO: Denies headache ROS Other: All systems not noted in ROS Statement are negative. Past Medical History Past Medical History: Atrial Fibrillation, Hypertension, Seizure Disorder, Sleep Apnea/CPAP/BIPAP Additional Past Medical History / Comment(s): QUIT USING C-PAP AFTER WT LOSS., BULDGING DISC'S , LAST SEIZURE 5-6 MONTHS AGO., HX OF COVID (NOV 2020)., SICK SINUS SYNDROME, SEE CARDIOLOGY [facility]. History of Any Multi-Drug Resistant Organisms: MRSA Date of last positivie culture/infection: 11/25/20 MDRO Source:: Urine Past Surgical History: Ablation, Cardiac Ablation, Pacemaker Additional Past Surgical History / Comment(s): left eye surg., HEART CATHS X3, HEMORROIDECTOMY, SX FOR SLEEP APNEA, MOLE REMOVED LT LEG(BENIGN), CARDIAC ABLATION X2., [employer] Past Anesthesia/Blood Transfusion Reactions: Previous Problems w/ Anesthesia Additional Past Anesthesia/Blood Transfusion Reaction / Comment(s): STATES AFTER CARDIAC ABLATION "I DID NOT FEEL WELL, I COULD NOT THINK OR WALK" Type of Cardiac Device: Permanent Pacemaker Device Placement Date:: ?2016 Past Psychological History: Depression Smoking Status: Former smoker Past Alcohol Use History: None Reported Past Drug Use History: None Reported - Past Family History Sister(s) Family Medical History: Cancer Additional Family Medical History / Comment(s): BREAST CANCER Father Additional Family Medical History / Comment(s): abdominal aneurysm General Exam - General Exam Comments Initial Comments: General: Appears in no acute distress. HEAD: Normal with no signs of head trauma. EYES: PERRLA, EOMI, conjunctiva normal, no discharge. Pupils are 3 mm and equal bilaterally. ENT: Hearing grossly intact, normal oropharynx. RESPIRATORY: Clear breath sounds bilaterally. No wheezes, rales, or rhonchi. No hypoxia. C/V: Regular rate and rhythm. S1 and S2 auscultated, no edema, peripheral pulses 2+ and intact throughout ABD: Abd is soft, nontender, nondistended EXT: Normal range of motion, no obvious deformity SKIN: No rashes or lesions observed on exposed skin.Mild abrasion to the right face with no obvious bleeding. NEURO: Alert and oriented x 4. Cranial nerves II-XII intact. No focal sensory or strength deficits. GCS of 15. NIH of 0. Course Vital Signs 03/21/25 03/21/25 03/21/25 10:44 12:00 13:51 Temperature 98.3 F 98 F Pulse Rate 75 71 71 Respiratory 20 16 18 Rate Blood Pressure 130/77 127/86 O2 Sat by Pulse 97 96 99 Oximetry Medical Decision Making - Medical Decision Making Was pt. sent in by a medical professional or institution ([facility], [facility], urgent care, hospital, or shelter...) When possible be specific @ -No Did you speak to anyone other than the patient for history (EMS, parent, family, police, friend...)? What history was obtained from this source @ -No Did you review nursing and triage notes (agree or disagree)? Why? @ -I reviewed and agree with nursing and triage notes Were old charts reviewed (outside hosp., previous admission, EMS record, old EKG, old radiological studies, urgent care reports/EKG's, shelter records)? Report findings @ -No old charts were reviewed Differential Diagnosis (chest pain, altered mental status, abdominal pain women, abdominal pain men, vaginal bleeding, weakness, fever, dyspnea, syncope, headache, dizziness, GI bleed, back pain, seizure, CVA, palpatations, mental health, musculoskeletal)? @ -Intracranial injury, pneumonia, COPD, this list is not all inclusive. EKG interpreted by me (3pts min.). @ -As above X-rays interpreted by me (1pt min.). @ -X-ray shows bilateral lower lobe pneumonia CT interpreted by me (1pt min.). @ -CT brain shows no obvious acute intracranial process. CT face negative for any obvious acute injury. CT C-spine negative for any obvious acute injury. U/S interpreted by me (1pt. min.). @ -None done What testing was considered but not performed or refused? (CT, X-rays, U/S, labs)? Why? @ -None What meds were considered but not given or refused? Why? @ -None Did you discuss the management of the patient with other professionals (professionals i.e. [facility], [facility], lab, RT, psych nurse, social sciences research scientist, phone representative, teacher, foreign policy officer, case making machine operator)? Give summary @ -No Was smoking cessation discussed for >3mins.? @ -No Was critical care preformed (if so, how long)? @ -No Were there social determinants of health that impacted care today? How? (Homelessness, low income, unemployed, alcoholism, drug addiction, transportation, low edu. Level, literacy, decrease access to med. care, nursing home, rehab)? @ -No Was there de-escalation of care discussed even if they declined (Discuss DNR or withdrawal of care, Hospice)? DNR status @ -No What co-morbidities impacted this encounter? (DM, HTN, Smoking, COPD, CAD, Cancer, CVA, ARF, Chemo, Hep., AIDS, mental health diagnosis, sleep apnea, morbid obesity)? @ -None Was patient admitted / discharged? Hospital course, mention meds given and route, prescriptions, significant lab abnormalities, going to OR and other pertinent info. @ -Based on patient's presentation and physical exam, presents as a code coag for a fall on blood thinners. Currently acting as mental status baseline. Does not meet criteria for trauma activation. Vital signs are within acceptable limits. Denies any pain. He will be given IV fluids. EKG shows no signs of acute ischemia. Imaging all negative for any obvious acute traumatic injury. Chest x-ray does show possible bilateral lower lobe pneumonia. Labs otherwise are within acceptable limits. BNP is not elevated. I discussed results with the patient. Patient will be covered for pneumonia with Augmentin. He will be discharged home at this time. He was in agreement this plan. Undiagnosed new problem with uncertain prognosis? @ -No Drug Therapy requiring intensive monitoring for toxicity (Heparin, Nitro, Insuli n, Cardizem)? @ -No Were any procedures done? @ -No Diagnosis/symptom? @ -Fall, pneumonia Acute, or Chronic, or Acute on Chronic? @ -Acute Uncomplicated (without systemic symptoms) or Complicated (systemic symptoms)? @ -Uncomplicated Side effects of treatment? @ -No Exacerbation, Progression, or Severe Exacerbation? @ -No Poses a threat to life or bodily function? How? (Chest pain, USA, SC, pneumonia, PE, COPD, DKA, ARF, appy, cholecystitis, CVA, Diverticulitis, Homicidal, Suicidal, threat to staff... and all critical care pts) @ -Unlikely at this time - Lab Data Result diagrams: 03/21/25 11:31 03/21/25 11:31 Lab Results 03/21/25 03/21/25 03/21/25 Range/Units 11:31 11:31 11:31 WBC 4.19 L (4.50-10.00) 10*3/uL RBC 4.33 L (4.40-5.60) 10*6/uL Hgb 14.3 (13.0-17.0) g/dL Hct 41.4 (39.6-50.0) % MCV 95.6 (80.0-97.0) fL MCH 33.0 H (27.0-32.0) pg MCHC 34.5 (32.0-37.0) g/dL Plt Count 176 (140-440) 10*3/uL MPV 9.7 (9.5-12.2) fL Immature Gran % (Auto) 0.2 % Neutrophils % 62.4 % Lymphocytes % 16.9 % Monocytes % 19.6 % Eosinophils % 0.2 % Basophils % 0.7 % Immature Gran # 0.01 (0.00-0.04) 10*3/uL Neutrophils # 2.61 (1.80-7.70) 10*3/uL Lymphocytes # 0.71 L (0.90-5.00) 10*3/uL Monocytes # 0.82 (0.20-1.00) 10*3/uL Eosinophils # 0.01 L (0.04-0.35) 10*3/uL Basophils # 0.03 (0.00-0.10) 10*3/uL PT 12.8 H (10.0-12.5) sec INR 1.2 H (<1.2) APTT 32.2 H (22.0-30.0) sec Sodium 135 L (137-145) mmol/L Potassium 3.9 (3.5-5.1) mmol/L Chloride 107 (98-107) mmol/L Carbon Dioxide 22 (22-30) mmol/L Anion Gap 6 mmol/L BUN 14 (9-20) mg/dL Creatinine 0.95 (0.66-1.25) mg/dL Est GFR (CKD-EPI)AfAm 86 (>60 ml/min/1.73 sqM) Est GFR (CKD-EPI)NonAf 74 (>60 ml/min/1.73 sqM) Glucose 111 H (74-99) mg/dL Plasma Lactic Acid Eric (0.7-2.0) mmol/L Calcium 8.3 L (8.4-10.2) mg/dL Magnesium 1.8 (1.6-2.3) mg/dL Total Bilirubin 2.3 H (0.2-1.3) mg/dL AST 41 (17-59) U/L ALT 13 (4-49) U/L Alkaline Phosphatase 133 H (38-126) U/L NT-Pro-B Natriuret Pep pg/mL Total Protein 6.1 L (6.3-8.2) g/dL Albumin 3.1 L (3.5-5.0) g/dL Influenza Type A (PCR) (Not Detectd) Influenza Type B (PCR) (Not Detectd) RSV (PCR) (Not Detectd) SARS-CoV-2 (PCR) (Not Detectd) 03/21/25 03/21/25 03/21/25 Range/Units 11:31 11:31 11:31 WBC (4.50-10.00) 10*3/uL RBC (4.40-5.60) 10*6/uL Hgb (13.0-17.0) g/dL Hct (39.6-50.0) % MCV (80.0-97.0) fL MCH (27.0-32.0) pg MCHC (32.0-37.0) g/dL Plt Count (140-440) 10*3/uL MPV (9.5-12.2) fL Immature Gran % (Auto) % Neutrophils % % Lymphocytes % % Monocytes % % Eosinophils % % Basophils % % Immature Gran # (0.00-0.04) 10*3/uL Neutrophils # (1.80-7.70) 10*3/uL Lymphocytes # (0.90-5.00) 10*3/uL Monocytes # (0.20-1.00) 10*3/uL Eosinophils # (0.04-0.35) 10*3/uL Basophils # (0.00-0.10) 10*3/uL PT (10.0-12.5) sec INR (<1.2) APTT (22.0-30.0) sec Sodium (137-145) mmol/L Potassium (3.5-5.1) mmol/L Chloride (98-107) mmol/L Carbon Dioxide (22-30) mmol/L Anion Gap mmol/L BUN (9-20) mg/dL Creatinine (0.66-1.25) mg/dL Est GFR (CKD-EPI)AfAm (>60 ml/min/1.73 sqM) Est GFR (CKD-EPI)NonAf (>60 ml/min/1.73 sqM) Glucose (74-99) mg/dL Plasma Lactic Acid Eric 1.1 (0.7-2.0) mmol/L Calcium (8.4-10.2) mg/dL Magnesium (1.6-2.3) mg/dL Total Bilirubin (0.2-1.3) mg/dL AST (17-59) U/L ALT (4-49) U/L Alkaline Phosphatase (38-126) U/L NT-Pro-B Natriuret Pep 1610 pg/mL Total Protein (6.3-8.2) g/dL Albumin (3.5-5.0) g/dL Influenza Type A (PCR) Not Detected (Not Detectd) Influenza Type B (PCR) Not Detected (Not Detectd) RSV (PCR) Not Detected (Not Detectd) SARS-CoV-2 (PCR) Not Detected (Not Detectd) - EKG Data -: EKG Interpreted by Me EKG Comments: 12-lead Electrocardiogram Interpretation Note EKG was reviewed and interpreted by myself. 12-lead ECG performed at 1115 is int erpreted by me as revealing paced rhythm at a rate of paced rhythm beats per minute. Left axis deviation. CT interval is 216 ms, QRS durations 152 ms, QTc is 1482 ms.. PVCs are present. There were no ST or T wave abnormalities to suggest myocardial ischemia or injury. R wave progression across the precordium was satisfactory. By my interpretation this EKG is non-diagnostic for acute ischemia. Disposition Clinical Impression: Pneumonia, Fall Disposition: HOME SELF-CARE Condition: Good Instructions (If sedation given, give patient instructions): Fall Prevention for Older Adults (ED), Community Acquired Pneumonia (ED) Prescriptions: Amoxic-Pot Clav 875-125Mg [Augmentin 875-125] 1 tab PO Q12HR 7 Days #14 tab Is patient prescribed a controlled substance at d/c from ED?: No Referrals: Bethany Pereyra MD [Primary Care Provider] - 1-2 days Time of Disposition: 13:15
[2025-03-21] MEDS: cefTRIAXone IN SWFI 1,000 MG/10 ML SYRINGE IVP STA (13:47)
[2025-03-21] MEDS: AMOXIC-POT CLAV 875-125MG 1 EACH TAB PO STA (13:48)
[2025-03-21 13:50] VITALS: PULSE 71
[2025-03-21 14:11] VITALS: BP 127/86; RESP 18; TEMP 98
[2025-03-21] MEDS: ACETAMINOPHEN TAB 500 MG TAB PO STA (15:07)
== END 2025-03-21 14:10 | disposition home or self-care (01) ==
LOC: EC 10:41
DX: J18.9 Pneumonia, unspecified organism (principal); Z87.891 Personal history of nicotine dependence; Z79.01 Long term (current) use of anticoagulants; Z91.010 Allergy to peanuts; W19.XXXA Unspecified fall, initial encounter
CPT/HCPCS: 36415; 93005; 83880; 80053; 83605; 83735; 85025; 85610; 85730; 87636; 71046; 72125; 70486; 70450; 99285; 96374; 96361 ×2; J0696